=== PATIENT | female | born 1955 | race Caucasian/White ===

== ENCOUNTER → 2016-09-08 | Outpatient (CLI) | payer MEDICARE ==
[~2016-09-08] MED LIST: ACTI300C PO; ACYC400T PO; ADV100INH INH; AKWASOL OU; ALBU83IN INH; AMLO25TA PO; AVEL1TAB PO; BACITAB3 PO; BACT800T5 PO; BECLPOW PO; BIOTLIQ3 SSP; BISMUTH SUBGALLATE PO; BUDESONIDE PO; BUPR200T PO; CHOL4POW4 PO; CITRTAB18 PO; CLON0.5T PO; EXJA500T PO; FENT1DIS14 TD; FOLI1TAB2 PO; GENTEAL OU; HYDROCORTISONE 1% TOP; LACTASE PO; LIDO5DIS36 TD; LOPE2TAB PO; LOVE1INJ SC; METO25TAB PO; MICR10CA PO; MOXI1TAB PO; MUCINEX PO; MULTCAP PO; MYLI40DR PO; ONDA1TAB16 PO; OXYC-517 PO; PRED10TA PO; PRIL20CA OR; PROT0.1O TOP; PROT1TAB2 PO; PROTEIN PO; ROBISYP PO; SIME80TA PO; SYSTSOL OU; TACROLIMUS PO; THIA100T PO; TRID0.1C TOP; TYLE325T5 PO; VITA100072 PO; VORICONAZOLE PO; [UNRECOGNIZED DRUG - OTHER] PO; [UNRECOGNIZED DRUG - OTHER] PO
[2016-09-08 13:19] LABS: BASO % 0.5 % (0.0-1.0); EOS # 0.8 K/mm3 (0.0-0.50); EOS % 7.4 % (0.0-3.0); LARGE UNSTAINED CELL # 0.4 K/mm3 (0.0-0.4); LARGE UNSTAINED CELL % 3.8 % (0.0-4.0); LYMPH # 3.7 K/mm3 (1.5-4.5); LYMPH % 35.2 % (24.0-44.0); MEAN CORPUSCULAR HEMOGLOBIN 32.5 pg (27.0-33.0); MEAN CORPUSCULAR HGB CONC 31.2 g/dl (32.0-36.5); MEAN CORPUSCULAR VOLUME 104.1 fl (80.0-96.0); MONO # 1.4 K/mm3 (0.0-0.8); MONO % 13.7 % (0.0-5.0); NEUTROPHILS # 4.1 K/mm3 (1.8-7.7); NEUTROPHILS % 39.4 % (36.0-66.0); PLATELET COUNT, AUTOMATED 287 k/mm3 (150-450); RED CELL DISTRIBUTION WIDTH 14.6 % (11.5-14.5); WHITE BLOOD COUNT 10.4 K/mm3 (4.0-10.0)
== END ==
LOC: M WUC 11:17
PROVIDERS: ATTEND Physician Assistant
DX: C92.01 Acute myeloblastic leukemia, in remission (principal); D89.813 Graft-versus-host disease, unspecified

== ENCOUNTER → 2016-10-14 | Outpatient (CLI) | payer MEDICARE ==
--- NOTE | 2016-10-14 10:43 | REP ---
Clinical: Pain and swelling. History of deep venous thrombosis. Technique: Garcia scale and color Doppler evaluation using linear high frequency transducer. Comparison: 06/07/2014 Findings: Ultrasound examination of the left lower extremity deep venous structures from the common femoral vein to the popliteal vein demonstrates moderate acute nonocclusive thrombus. Residual flow and normal venous wave patterns are appreciated. Impression: Acute nonocclusive thrombus extending from the common femoral vein to the popliteal vein/trifurcation. Signed by Sharad Montano MD 10/14/2016 10:35 A
== END ==
LOC: M RAD 09:58
PROVIDERS: ATTEND Physician Assistant
DX: I82.412 Acute embolism and thrombosis of left femoral vein (principal); Z94.84 Stem cells transplant status

== ENCOUNTER 2017-05-24 13:18 | Emergency (ER) | payer MEDICARE ==
[2017-05-24 15:05] LABS: ANION GAP 7 MEQ/L (8-16); BLOOD UREA NITROGEN 15 MG/DL (7-18); CALCIUM LEVEL 8.5 MG/DL (8.8-10.2); CARBON DIOXIDE LEVEL 29 MEQ/L (21-32); CHLORIDE LEVEL 105 MEQ/L (98-107); CPK CREATINE PHOSPHOKINASE 25 U/L (26-192); GLOMERULAR FILTRATION RATE > 60.0 (>45); GLUCOSE, FASTING 83 MG/DL (80-110); POTASSIUM SERUM 4.4 MEQ/L (3.5-5.1); SODIUM LEVEL 141 MEQ/L (136-145); TROPONIN I < 0.02 NG/ML (< 0.10)
[2017-05-24 15:05] LABS: LACTIC ACID SEPSIS PROTOCOL 1.1 MMOL/L (0.4-2.0)
[2017-05-24 15:10] LABS: BASO # 0.1 10^3/uL (0.0-0.2); BASO % 0.9 % (0.0-1.0); EOS # 0.2 10^3/uL (0.0-0.50); EOS % 2.3 % (0.0-3.0); HEMATOCRIT 38.4 % (36.0-47.0); HEMOGLOBIN 12.1 g/dl (12.0-16.0); IMMATURE GRANULOCYTE # 0.3 10^3/uL (0-0); IMMATURE GRANULOCYTE % 2.5 % (0-0); LYMPH # 1.8 10^3/uL (1.5-4.5); LYMPH % 17.6 % (24.0-44.0); MEAN CORPUSCULAR HEMOGLOBIN 31.9 pg (27.0-33.0); MEAN CORPUSCULAR HGB CONC 31.5 g/dl (32.0-36.5); MEAN CORPUSCULAR VOLUME 101.3 fl (80.0-96.0); MONO # 1.6 10^3/uL (0.0-0.8); MONO % 15.7 % (0.0-5.0); NEUTROPHILS # 6.1 10^3/uL (1.8-7.7); PLATELET COUNT, AUTOMATED 271 10^3/uL (150-450); RED BLOOD COUNT 3.79 10^6/uL (4.00-5.40); RED CELL DISTRIBUTION WIDTH 15.7 % (11.5-14.5)
[2017-05-24 15:38] LABS: ERYTHROCYTE SEDIMENTATION RATE 52 mm/hr (0-30)
[2017-05-24 17:21] LABS: KETONE, URINE AUTO RFX NEGATIVE (NEGATIVE); LEUKOCYTE ESTERASE UR AUTO RFX NEGATIVE (NEGATIVE); NITRITE, URINE AUTO RFX NEGATIVE (NEGATIVE); RBC, URINE AUTO RFX 0 /HPF (0-3); SPECIFIC GRAVITY UR AUTO RFX 1.016 (1.002-1.035); SQUAM EPITHELIAL CELL UR AURFX 0 /HPF (0-6); WBC, URINE AUTO RFX 1 /HPF (0-3)
[2017-05-24] MEDS: DOXYCYCLINE HYCLATE 100 MG TAB PO (18:30)
[2017-05-24] MEDS: CEPHALEXIN 500 MG CAP PO (18:31)
== END 2017-05-24 19:00 | disposition home or self-care (01) ==
LOC: M ED 13:18
DX: L89.212 Pressure ulcer of right hip, stage 2 (principal); L89.222 Pressure ulcer of left hip, stage 2; L97.902 Non-pressure chronic ulcer of unspecified part of unspecified lower leg with fat layer exposed; D89.813 Graft-versus-host disease, unspecified; I10 Essential (primary) hypertension; F32.9 Major depressive disorder, single episode, unspecified; Z85.6 Personal history of leukemia; Z98.84 Bariatric surgery status; Z79.899 Other long term (current) drug therapy
CPT/HCPCS: 71046

== ENCOUNTER → 2017-08-17 | Outpatient (REF) | payer MEDICARE | LOC: M LAB REF 16:34 | DX: L92.8 Other granulomatous disorders of the skin and subcutaneous tissue (principal); I87.311 Chronic venous hypertension (idiopathic) with ulcer of right lower extremity; L89.213 Pressure ulcer of right hip, stage 3; L89.313 Pressure ulcer of right buttock, stage 3; L89.223 Pressure ulcer of left hip, stage 3 | CPT/HCPCS: 88305 ==

== ENCOUNTER 2017-12-21 10:21 | Emergency (ER) | payer MEDICARE | END 2017-12-21 12:17 | disposition home or self-care (01) | LOC: M ED 10:21 | DX: R41.82 Altered mental status, unspecified (principal); T50.7X5A Adverse effect of analeptics and opioid receptor antagonists, initial encounter; I10 Essential (primary) hypertension; D69.6 Thrombocytopenia, unspecified; C92.00 Acute myeloblastic leukemia, not having achieved remission; D89.813 Graft-versus-host disease, unspecified; Z98.84 Bariatric surgery status; Z79.899 Other long term (current) drug therapy; Z79.51 Long term (current) use of inhaled steroids | CPT/HCPCS: 99284 ==

== ENCOUNTER 2018-01-04 15:54 | Inpatient (IN) | payer MEDICARE ==
[2018-01-04] MEDS: NS 1,000 ML IV ×2 (16:30→23:01)
[2018-01-04 16:31] LABS: BASO # 0.1 10^3/uL (0.0-0.2); BASO % 0.5 % (0.0-1.0); EOS # 0.2 10^3/uL (0.0-0.50); EOS % 1.4 % (0.0-3.0); HEMATOCRIT 30.2 % (36.0-47.0); HEMOGLOBIN 9.2 g/dl (12.0-15.5); IMMATURE GRANULOCYTE % 2.8 % (0-3.0); LYMPH # 1.2 10^3/uL (1.5-4.5); LYMPH % 10.3 % (24.0-44.0); MEAN CORPUSCULAR HEMOGLOBIN 27.6 pg (27.0-33.0); MEAN CORPUSCULAR HGB CONC 30.5 g/dl (32.0-36.5); MEAN CORPUSCULAR VOLUME 90.7 fl (80.0-96.0); MONO # 1.8 10^3/uL (0.0-0.8); MONO % 15.4 % (0.0-5.0); NEUTROPHILS # 8.2 10^3/uL (1.8-7.7); NEUTROPHILS % 69.6 % (36.0-66.0); PLATELET COUNT, AUTOMATED 355 10^3/uL (150-450); RED BLOOD COUNT 3.33 10^6/uL (4.00-5.40); WHITE BLOOD COUNT 11.8 10^3/uL (4.0-10.0)
[2018-01-04 16:41] LABS: ABG BASE EXCESS 0.4 (-2.0-2.0); ABG HCO3 23.9 MEQ/L (22.0-26.0); ABG O2 SATURATION 89.1 % (95.0-99.0); ABG PARTIAL PRESSURE CO2 34.3 mmHg (35.0-45.0); ABG PARTIAL PRESSURE O2 53.6 mmHg (75.0-100.0); ABG STANDARD HCO3 24.7 MEQ/L (22.0-26.0); ABG pH (ARTERIAL) 7.461 UNITS (7.350-7.450)
[2018-01-04 16:42] LABS: OSMOLALITY SERUM 283 MOSM/KG (280-301)
[2018-01-04 16:45] LABS: AMMONIA 16 uMOL/L (<32)
[2018-01-04] MEDS ORDERED: MORPHINE 2 MG/ML 1ML SYRINGE (J2270) As Ordered (16:49)
[2018-01-04 16:50] LABS: ACETAMINOPHEN LEVEL 4.8 UG/ML (10.0-30.0); ALBUMIN 1.9 GM/DL (3.2-5.2); ALBUMIN/GLOBULIN RATIO 0.76 (1.00-1.93); ALKALINE PHOSPHATASE 181 U/L (45-117); ALT/SGPT 11 U/L (12-78); ANION GAP 7 MEQ/L (8-16); AST/SGOT 21 U/L (7-37); BILIRUBIN,DIRECT 0.2 MG/DL (0.0-0.2); BILIRUBIN,TOTAL 0.3 MG/DL (0.2-1.0); BLOOD UREA NITROGEN 10 MG/DL (7-18); CALCIUM LEVEL 7.6 MG/DL (8.8-10.2); CARBON DIOXIDE LEVEL 27 MEQ/L (21-32); CHLORIDE LEVEL 105 MEQ/L (98-107); CPK CREATINE PHOSPHOKINASE 31 U/L (26-192); CREATININE FOR GFR 0.54 MG/DL (0.55-1.30); GLOMERULAR FILTRATION RATE > 60.0 (>45); GLUCOSE, FASTING 126 MG/DL (70-100); POTASSIUM SERUM 4.2 MEQ/L (3.5-5.1); SALICYLATE LEVEL 2.5 MG/DL (5.0-30.0); SODIUM LEVEL 139 MEQ/L (136-145); TOTAL PROTEIN 4.4 GM/DL (6.4-8.2); TROPONIN I 0.02 NG/ML (< 0.10)
[2018-01-04 16:51] LABS: LACTIC ACID SEPSIS PROTOCOL 1.3 MMOL/L (0.4-2.0)
[2018-01-04 16:56] LABS: CK-MB VALUE MASS < 1.0 NG/ML (<3.6); MB/CK RELATIVE INDEX 3.22 (< OR =4)
[2018-01-04 16:57] LABS: ETHYL ALCOHOL (ETHANOL) < 0.003 % (0.000-0.010)
[2018-01-04] MEDS: MORPHINE 2 MG/ML 1ML SYRINGE (J2270) IV (17:00)
[2018-01-04 18:35] LABS: KETONE, URINE AUTO RFX NEGATIVE (NEGATIVE); LEUKOCYTE ESTERASE UR AUTO RFX NEGATIVE (NEGATIVE); MUCUS, URINE RFX SMALL (NEGATIVE); NITRITE, URINE AUTO RFX NEGATIVE (NEGATIVE); RBC, URINE AUTO RFX 3 /HPF (0-3); SPECIFIC GRAVITY UR AUTO RFX 1.004 (1.002-1.035); SQUAM EPITHELIAL CELL UR AURFX 0 /HPF (0-6); WBC, URINE AUTO RFX 1 /HPF (0-3)
[2018-01-04 18:45] LABS: AMPHETAMINES LEVEL URINE NEGATIVE (NEGATIVE); BARBITURATES URINE NEGATIVE (NEGATIVE); BENZODIAZEPINES URINE NEGATIVE (NEGATIVE); CANNABINOIDS URINE NEGATIVE (NEGATIVE); COCAINE METABOLITE URINE NEGATIVE (NEGATIVE); METHADONE URINE NEGATIVE (NEGATIVE); OPIATES URINE POSITIVE (NEGATIVE); PHENCYCLIDINE URINE NEGATIVE (NEGATIVE)
[2018-01-04] MEDS ORDERED: guaiFENesin SYRUP 200 MG/10 ML UDC PO (19:30)
[2018-01-04] MEDS ORDERED: POLYVINYL ALCOHOL OPHTH SOLN 15 ML(LIQUITEARS) OU (19:30)
[2018-01-04] MEDS ORDERED: LOPERAMIDE 2 MG CAP PO (19:30)
[2018-01-04] MEDS ORDERED: TRIAMCINOLONE ACET 0.1% CREAM 80 GM TOP (19:30)
[2018-01-04] MEDS ORDERED: ACETAMINOPHEN TAB 650MG DOSE (2X325MG) PO (19:30)
[2018-01-04] MEDS ORDERED: ONDANSETRON 4 MG TAB (S0181) PO (19:30)
[2018-01-04] MEDS ORDERED: BISACODYL 10 MG SUPP PR (19:45)
[2018-01-04] MEDS ORDERED: PROHANCE 279.3MG/ML 15ML VIAL (A9576) As Ordered (20:49)
[2018-01-04] MEDS ORDERED: VORICONAZOLE 200MG TABLET (VFEND) PO (21:00)
[2018-01-04] MEDS ORDERED: URSODIOL 300 MG CAP PO (21:00)
[2018-01-04] MEDS ORDERED: CIPROFLOXACIN 500 MG TAB PO (21:00)
[2018-01-04] MEDS: METOPROLOL SUCC *XL* 25MG TAB (TopROL *XL*) PO (22:57)
[2018-01-04] MEDS: levETIRAcetam 250MG TABLET (KEPPRA) PO (22:58)
[2018-01-04] MEDS: LACTOBACILLUS ACIDOPHILUS CAP (BACID) PO (22:58)
[2018-01-04] MEDS: GABAPENTIN 100 MG CAP PO (22:59)
[2018-01-04] MEDS: PANTOPRAZOLE 40MG TAB (PROTONIX) PO (22:59)
[2018-01-04] MEDS ORDERED: FENTANYL REMOVAL DOCUMENTATION MISC XX (23:00)
[2018-01-04] MEDS: fentaNYL 50 MCG/HR PATCH TD (23:00)
[2018-01-05] MEDS: ADVAIR HFA 45/21MCG INHALER INH ×3 (03:13→20:38)
[2018-01-05 05:17] LABS: HEMOGLOBIN 9.5 g/dl (12.0-15.5); MEAN CORPUSCULAR HEMOGLOBIN 27.3 pg (27.0-33.0); MEAN CORPUSCULAR HGB CONC 29.7 g/dl (32.0-36.5); PLATELET COUNT, AUTOMATED 331 10^3/uL (150-450); RED BLOOD COUNT 3.48 10^6/uL (4.00-5.40); WHITE BLOOD COUNT 10.5 10^3/uL (4.0-10.0)
[2018-01-05 05:31] LABS: ESTIMATED AVERAGE GLUCOSE 80 MG/DL (60-110); HEMOGLOBIN A1c 4.4 %
[2018-01-05 05:42] LABS: ALBUMIN 1.7 GM/DL (3.2-5.2); ALBUMIN/GLOBULIN RATIO 0.57 (1.00-1.93); ALKALINE PHOSPHATASE 152 U/L (45-117); ALT/SGPT 10 U/L (12-78); ANION GAP 7 MEQ/L (8-16); AST/SGOT 16 U/L (7-37); BILIRUBIN,TOTAL 0.3 MG/DL (0.2-1.0); BLOOD UREA NITROGEN 9 MG/DL (7-18); CALCIUM LEVEL 7.7 MG/DL (8.8-10.2); CARBON DIOXIDE LEVEL 26 MEQ/L (21-32); CHLORIDE LEVEL 109 MEQ/L (98-107); CREATININE FOR GFR 0.43 MG/DL (0.55-1.30); GLOMERULAR FILTRATION RATE > 60.0 (>45); GLUCOSE, FASTING 60 MG/DL (70-100); POTASSIUM SERUM 3.8 MEQ/L (3.5-5.1); SODIUM LEVEL 142 MEQ/L (136-145); TOTAL PROTEIN 4.7 GM/DL (6.4-8.2)
[2018-01-05] MEDS: D5W/0.9% SODIUM CHLORIDE 1,000 ML IV (06:45)
[2018-01-05 06:49] LABS: BEDSIDE GLUCOSE 56 MG/DL (80-115)
[2018-01-05 06:52] LABS: BEDSIDE GLUCOSE 103 MG/DL (80-115)
[2018-01-05] MEDS ORDERED: PROHANCE 279.3MG/ML 5ML VIAL (A9576) As Ordered (08:47)
[2018-01-05] MEDS ORDERED: PROHANCE 279.3MG/ML 15ML VIAL (A9576) As Ordered (08:48)
[2018-01-05] MEDS ORDERED: predniSONE 1 MG TAB PO (09:00)
[2018-01-05] MEDS: CHOLESTYRAMINE 4 GM PWD PKT PO ×3 (09:00→20:14)
[2018-01-05] MEDS ORDERED: VITAMIN D 1,000 INTERNATIONAL UNITS TABLET PO (09:00)
[2018-01-05] MEDS: TACROLIMUS 0.5 MG CAP PO ×2 (10:10→20:13)
[2018-01-05] MEDS: PERCOCET 5MG/325MG TAB PO (10:10)
[2018-01-05] MEDS: PANTOPRAZOLE 40MG TAB (PROTONIX) PO ×2 (10:10→20:13)
[2018-01-05] MEDS: buPROPion (WELLBUTRIN SR) 100 MG SR TAB PO ×2 (10:11→20:13)
[2018-01-05] MEDS: LACTOBACILLUS ACIDOPHILUS CAP (BACID) PO ×3 (10:11→20:11)
[2018-01-05] MEDS: GABAPENTIN 100 MG CAP PO ×3 (10:11→20:13)
[2018-01-05] MEDS: FOLIC ACID 1 MG TAB PO (10:11)
[2018-01-05] MEDS: CYANOCOBALAMIN 500 MCG TAB PO (10:11)
[2018-01-05] MEDS: levETIRAcetam 250MG TABLET (KEPPRA) PO ×2 (10:11→20:12)
[2018-01-05] MEDS: VITAMIN D 1,000 INTERNATIONAL UNITS TABLET PO (10:12)
[2018-01-05] MEDS: THIAMINE 100 MG TAB PO (10:15)
[2018-01-05] MEDS: METOPROLOL SUCC *XL* 25MG TAB (TopROL *XL*) PO (10:15)
[2018-01-05] MEDS: ENOXAPARIN 40 MG/0.4 ML SYRINGE (J1650) SC (10:16)
[2018-01-05] MEDS: fentaNYL 50 MCG/HR PATCH TD (11:10)
[2018-01-05 13:44] LABS: CK-MB VALUE MASS < 1.0 NG/ML (<3.6); CPK CREATINE PHOSPHOKINASE 30 U/L (26-192); MB/CK RELATIVE INDEX 3.33 (< OR =4); TROPONIN I 0.02 NG/ML (< 0.10)
[2018-01-05] MEDS ORDERED: DIAPER RELIEF PASTE (DESITIN) 60GM TOP (14:45)
[2018-01-05] MEDS ORDERED: VANCOMYCIN HCL 1,000 MG, VIAL MATE ADAPTER 1 EACH in D5W 250 ML IV (16:30)
[2018-01-05] MEDS: VANCOMYCIN HCL 1,000 MG, VIAL MATE ADAPTER 1 EACH in D5W 250 ML IV ×2 (16:45→23:22)
[2018-01-05] MEDS ORDERED: LIDOCAINE 1% MDV 20ML VIAL As Ordered (18:33)
[2018-01-05] MEDS: CEFEPIME HCL 1 GM in D5W MINI-BAG PLUS 50 ML IV (19:14)
[2018-01-05] MEDS: LIDOCAINE 1% MDV 20ML VIAL SC (19:14)
[2018-01-05 20:44] LABS: CSF RBC < 2 10^3/uL (<2)
[2018-01-05 20:45] LABS: APPEARANCE, CSF CLEAR (CLEAR); COLOR, CSF COLORLESS (COLORLESS); CSF DIFF IF INDICATED? NO (NO); CSF TUBE# CELL CNT TUBE 4; CSF WBC 4 /uL (0-10)
[2018-01-05 20:47] LABS: CSF MONONUCLEAR CELL % 42.9 % (0-0); CSF POLYMORPHONUCLEAR CELL % 57.1 % (0-0); CSF RBC 4 10^3/uL (<2); CSF WBC 28 /uL (0-10)
[2018-01-05 20:50] LABS: APPEARANCE, CSF HAZY (CLEAR); COLOR, CSF PINK (COLORLESS); CSF DIFF IF INDICATED? YES (NO); CSF TUBE# CELL CNT TUBE 1
[2018-01-05] MEDS ORDERED: clonazePAM 1 MG TAB PO (21:00)
[2018-01-05 21:04] LABS: CSF TUBE# GLU TUBE 2; CSF TUBE# TP TUBE 2; GLUCOSE CSF 49 MG/DL (40-75); TOTAL PROTEIN,CSF 35.1 MG/DL (15-45)
[2018-01-06] MEDS: PERCOCET 5MG/325MG TAB PO ×2 (03:29→11:37)
[2018-01-06 05:33] LABS: HEMATOCRIT 28.4 % (36.0-47.0); HEMOGLOBIN 8.6 g/dl (12.0-15.5); MEAN CORPUSCULAR HEMOGLOBIN 27.6 pg (27.0-33.0); MEAN CORPUSCULAR HGB CONC 30.3 g/dl (32.0-36.5); PLATELET COUNT, AUTOMATED 309 10^3/uL (150-450); RED BLOOD COUNT 3.12 10^6/uL (4.00-5.40); RED CELL DISTRIBUTION WIDTH 18.1 % (11.5-14.5)
[2018-01-06 05:52] LABS: ALBUMIN 1.6 GM/DL (3.2-5.2); ALBUMIN/GLOBULIN RATIO 0.57 (1.00-1.93); ALKALINE PHOSPHATASE 129 U/L (45-117); ALT/SGPT 9 U/L (12-78); ANION GAP 9 MEQ/L (8-16); AST/SGOT 9 U/L (7-37); BILIRUBIN,TOTAL 0.3 MG/DL (0.2-1.0); BLOOD UREA NITROGEN 9 MG/DL (7-18); CALCIUM LEVEL 7.7 MG/DL (8.8-10.2); CARBON DIOXIDE LEVEL 24 MEQ/L (21-32); CHLORIDE LEVEL 109 MEQ/L (98-107); GLOMERULAR FILTRATION RATE > 60.0 (>45); GLUCOSE, FASTING 68 MG/DL (70-100); MAGNESIUM LEVEL 1.4 MG/DL (1.8-2.4); POTASSIUM SERUM 3.6 MEQ/L (3.5-5.1); SODIUM LEVEL 142 MEQ/L (136-145); TOTAL PROTEIN 4.4 GM/DL (6.4-8.2)
[2018-01-06] MEDS: CEFEPIME HCL 1 GM in D5W MINI-BAG PLUS 50 ML IV ×2 (06:00→17:33)
[2018-01-06] MEDS: oxyCODONE 5MG TAB PO ×3 (08:54→20:55)
[2018-01-06] MEDS: ADVAIR HFA 45/21MCG INHALER INH ×2 (08:59→21:27)
[2018-01-06] MEDS: CHOLESTYRAMINE 4 GM PWD PKT PO ×2 (09:00→20:55)
[2018-01-06] MEDS: GABAPENTIN 100 MG CAP PO ×3 (09:51→20:54)
[2018-01-06] MEDS: PANTOPRAZOLE 40MG TAB (PROTONIX) PO ×2 (09:52→20:53)
[2018-01-06] MEDS: FOLIC ACID 1 MG TAB PO (09:52)
[2018-01-06] MEDS: levETIRAcetam 250MG TABLET (KEPPRA) PO ×2 (09:52→20:54)
[2018-01-06] MEDS: CYANOCOBALAMIN 500 MCG TAB PO (09:52)
[2018-01-06] MEDS: buPROPion (WELLBUTRIN SR) 100 MG SR TAB PO ×2 (09:52→20:54)
[2018-01-06] MEDS: VITAMIN D 1,000 INTERNATIONAL UNITS TABLET PO (09:52)
[2018-01-06] MEDS: TACROLIMUS 0.5 MG CAP PO ×2 (09:53→20:53)
[2018-01-06] MEDS: methylPREDNISolone 4 MG TAB PO (09:53)
[2018-01-06] MEDS: METOPROLOL SUCC *XL* 25MG TAB (TopROL *XL*) PO (09:53)
[2018-01-06] MEDS: THIAMINE 100 MG TAB PO (09:53)
[2018-01-06] MEDS: MAG SULF 1GM/100ML (MAG RUN) 1 GM in APPROPRIATE DILUENT 1 EA IV (09:54)
[2018-01-06] MEDS: HEPARIN SOD (PORCINE) 5000 UNITS/ML VIAL SQ ×2 (09:54→20:53)
[2018-01-06] MEDS: LACTOBACILLUS ACIDOPHILUS CAP (BACID) PO ×3 (09:54→20:54)
[2018-01-06] MEDS: VANCOMYCIN HCL 1,000 MG, VIAL MATE ADAPTER 1 EACH in D5W 250 ML IV ×2 (11:00→23:00)
[2018-01-06] MEDS: MORPHINE 4 MG/ML 1ML VIAL/SYRINGE (J2270) IV (13:26)
[2018-01-06] MEDS: SODIUM CHLORIDE 0.9% INJ 10 ML SYR IV (17:32)
[2018-01-07 05:04] LABS: HEMATOCRIT 30.3 % (36.0-47.0); MEAN CORPUSCULAR HEMOGLOBIN 27.2 pg (27.0-33.0); MEAN CORPUSCULAR HGB CONC 29.7 g/dl (32.0-36.5); MEAN CORPUSCULAR VOLUME 91.5 fl (80.0-96.0); PLATELET COUNT, AUTOMATED 311 10^3/uL (150-450); RED BLOOD COUNT 3.31 10^6/uL (4.00-5.40); RED CELL DISTRIBUTION WIDTH 18.2 % (11.5-14.5); WHITE BLOOD COUNT 6.9 10^3/uL (4.0-10.0)
[2018-01-07 05:35] LABS: ALBUMIN 1.6 GM/DL (3.2-5.2); ALBUMIN/GLOBULIN RATIO 0.53 (1.00-1.93); ALKALINE PHOSPHATASE 117 U/L (45-117); ALT/SGPT 9 U/L (12-78); ANION GAP 7 MEQ/L (8-16); AST/SGOT 9 U/L (7-37); BILIRUBIN,TOTAL 0.2 MG/DL (0.2-1.0); BLOOD UREA NITROGEN 9 MG/DL (7-18); CARBON DIOXIDE LEVEL 24 MEQ/L (21-32); CHLORIDE LEVEL 112 MEQ/L (98-107); GLOMERULAR FILTRATION RATE > 60.0 (>45); GLUCOSE, FASTING 75 MG/DL (70-100); MAGNESIUM LEVEL 1.9 MG/DL (1.8-2.4); SODIUM LEVEL 143 MEQ/L (136-145); TOTAL PROTEIN 4.6 GM/DL (6.4-8.2)
[2018-01-07] MEDS: TACROLIMUS 0.5 MG CAP PO ×2 (08:26→20:28)
[2018-01-07] MEDS: buPROPion (WELLBUTRIN SR) 100 MG SR TAB PO ×2 (08:27→20:28)
[2018-01-07] MEDS: LACTOBACILLUS ACIDOPHILUS CAP (BACID) PO ×3 (08:27→20:28)
[2018-01-07] MEDS: CYANOCOBALAMIN 500 MCG TAB PO (08:27)
[2018-01-07] MEDS: VITAMIN D 1,000 INTERNATIONAL UNITS TABLET PO (08:27)
[2018-01-07] MEDS: PANTOPRAZOLE 40MG TAB (PROTONIX) PO ×2 (08:28→20:29)
[2018-01-07] MEDS: levETIRAcetam 250MG TABLET (KEPPRA) PO ×2 (08:28→20:28)
[2018-01-07] MEDS: GABAPENTIN 100 MG CAP PO ×3 (08:29→20:29)
[2018-01-07] MEDS: THIAMINE 100 MG TAB PO (08:30)
[2018-01-07] MEDS: FOLIC ACID 1 MG TAB PO (08:30)
[2018-01-07] MEDS: oxyCODONE 5MG TAB PO ×4 (08:30→20:39)
[2018-01-07] MEDS: METOPROLOL SUCC *XL* 25MG TAB (TopROL *XL*) PO (08:34)
[2018-01-07] MEDS: CHOLESTYRAMINE 4 GM PWD PKT PO ×2 (08:34→20:28)
[2018-01-07 10:19] LABS: VANCOMYCIN LEVEL TROUGH 14.3 UG/ML (10.0-20.0)
[2018-01-07] MEDS: ADVAIR HFA 45/21MCG INHALER INH ×2 (10:22→20:02)
[2018-01-07] MEDS: VANCOMYCIN HCL 1,000 MG, VIAL MATE ADAPTER 1 EACH in D5W 250 ML IV (11:20)
[2018-01-07] MEDS: HEPARIN SOD (PORCINE) 5000 UNITS/ML VIAL SQ ×2 (11:20→20:28)
== END 2018-01-07 21:00 | disposition short-term general hospital (02) | DRG 100 ==
LOC: M ED 15:54 → M ED INP 19:31 → M ICU 21:59
DX: R56.9 Unspecified convulsions (principal); G04.90 Encephalitis and encephalomyelitis, unspecified; D89.811 Chronic graft-versus-host disease; C92.01 Acute myeloblastic leukemia, in remission; R78.81 Bacteremia; L97.918 Non-pressure chronic ulcer of unspecified part of right lower leg with other specified severity; L97.928 Non-pressure chronic ulcer of unspecified part of left lower leg with other specified severity; K21.9 Gastro-esophageal reflux disease without esophagitis; F41.9 Anxiety disorder, unspecified; E66.9 Obesity, unspecified; Z79.899 Other long term (current) drug therapy; I87.2 Venous insufficiency (chronic) (peripheral); L98.419 Non-pressure chronic ulcer of buttock with unspecified severity; Z86.718 Personal history of other venous thrombosis and embolism; Z98.84 Bariatric surgery status; F11.90 Opioid use, unspecified, uncomplicated

== ENCOUNTER 2018-03-22 13:21 | Inpatient (IN) | payer MEDICARE ==
[~2018-03-22] VITALS: Ht 157.5 cm; Wt 74.7 kg
[~2018-03-22 13:21] MED LIST changes: +ACID100C PO; -AVEL1TAB PO; +AVEL1TAB3 PO; +BACITAB PO; -BACITAB3 PO; +CIPR1TAB20 PO; -CLON0.5T PO; +CLON0.5T8 PO; +CLON1TAB8 PO; +D3-5CAP PO; +DOXY100C37 PO; +DURA50DI2 TD; +ENOX40IN3 SC; +FISH1000 PO; +FLAX10002 PO; -FOLI1TAB2 PO; +FOLI1TAB5 PO; +GABA-1171 PO; +GABA-843 PO; +GENTGEL OU; +KEFL500C17 PO; +KEPP250T5 PO; +LACT3000 PO; -LIDO5DIS36 TD; +LIDO5DIS41 TD; +LOPE2CA PO; +LOPE2CAP PO; -LOPE2TAB PO; +LOVE0.8I SC; +METH4TAB28 PO; +METO1TAB32 PO; +MG-PTAB PO; -ONDA1TAB16 PO; +ONDA8TAB7 PO; +PENI500T PO; +PRED1TABL PO; +REST0.05 OU; +TACR0.5C3 PO; +TACR1CAP3 PO; -THIA100T PO; +THIA100T7 PO; +VITA100066 PO; +VITA2000 PO; +VORI200T5 PO; +WELL100T2 PO; +ZOFR8TAB24 SL; +[UNRECOGNIZED DRUG - CODE] INJ; +[UNRECOGNIZED DRUG - CODE] PO
[2018-03-22] MEDS ORDERED: SODIUM CHLORIDE 0.9% INJ 10 ML SYR IV PRN (13:45)
[2018-03-22] MEDS ORDERED: NS 1,000 ML IV ONE (13:45)
--- NOTE | 2018-03-22 14:17 | REP ---
Portable chest x-ray: Single view. History: Altered mental status. Comparison study: January 04, 2018. Findings: A Yeseuc-H-Afsd catheter is seen in place as before. The lungs are symmetrically aerated and clear. Pleural angles are sharp. Heart size is normal. Pulmonary vasculature is not increased. There is an old healed rib fracture on the left. Impression: No active disease. Electronically Signed by Mahendra Clark MD 03/22/2018 02:08 P
[2018-03-22 14:18] LABS: ABG BASE EXCESS 3.7 (-2.0-2.0); ABG HCO3 27.5 MEQ/L (22.0-26.0); ABG O2 SATURATION 95.9 % (95.0-99.0); ABG PARTIAL PRESSURE CO2 38.1 mmHg (35.0-45.0); ABG STANDARD HCO3 27.8 MEQ/L (22.0-26.0); ABG TOTAL CO2 28.7 MEQ/L (23.0-31.0); ABG pH (ARTERIAL) 7.476 UNITS (7.350-7.450)
--- NOTE | 2018-03-22 14:18 | REP ---
CT Head without contrast HISTORY: Altered mental status COMPARISON: 01/04/2018 Areas of decreased attenuation are present in the periventricular and subcortical white matter. This represents small-vessel ischemic disease. There is no intraparenchymal hemorrhage, acute infarct, mass or midline shift. The ventricular system is normal in appearance. There is no extra cerebral collection. There is no fracture. The visualized sinuses are clear. IMPRESSION: Small vessel ischemic disease. Electronically Signed by Asael Parks MD 03/22/2018 02:09 P
[2018-03-22 14:38] LABS: HEMATOCRIT 31.8 % (36.0-47.0); HEMOGLOBIN 9.6 g/dl (12.0-15.5); MEAN CORPUSCULAR HEMOGLOBIN 27.6 pg (27.0-33.0); MEAN CORPUSCULAR HGB CONC 30.2 g/dl (32.0-36.5); MEAN CORPUSCULAR VOLUME 91.4 fl (80.0-96.0); PLATELET COUNT, AUTOMATED 370 10^3/uL (150-450); RED BLOOD COUNT 3.48 10^6/uL (4.00-5.40); WHITE BLOOD COUNT 13.4 10^3/uL (4.0-10.0)
[2018-03-22 15:07] LABS: ATYPICAL LYMPH 3 % (0-5); BASOPHILS 1 % (0-4); EOSINOPHILS 2 % (0-5); LYMPHOCYTES 2 % (16-52); MONOCYTES 13 % (0-8); NEUTROPHILS 69 % (35-75); PLATELET ESTIMATE NORMAL (NORMAL)
[2018-03-22 15:08] LABS: TOXIC GRANULATION 1+
[2018-03-22 15:09] LABS: SCHISTOCYTES 1+
[2018-03-22 15:18] LABS: ALBUMIN 2.2 GM/DL (3.2-5.2); ALT/SGPT 10 U/L (12-78); BILIRUBIN,DIRECT 0.3 MG/DL (0.0-0.2); BILIRUBIN,TOTAL 0.5 MG/DL (0.2-1.0); BLOOD UREA NITROGEN 12 MG/DL (7-18); CALCIUM LEVEL 8.3 MG/DL (8.8-10.2); CARBON DIOXIDE LEVEL 28 MEQ/L (21-32); CHLORIDE LEVEL 103 MEQ/L (98-107); CK-MB VALUE MASS < 1.0 NG/ML (<3.6); CPK CREATINE PHOSPHOKINASE 18 U/L (26-192); CREATININE FOR GFR 0.53 MG/DL (0.55-1.30); GLOMERULAR FILTRATION RATE > 60.0 (>45); GLUCOSE, FASTING 94 MG/DL (70-100); MB/CK RELATIVE INDEX 5.56 (< OR =4); POTASSIUM SERUM 4.3 MEQ/L (3.5-5.1); SODIUM LEVEL 139 MEQ/L (136-145); TOTAL PROTEIN 4.8 GM/DL (6.4-8.2); TROPONIN I < 0.02 NG/ML (< 0.10)
[2018-03-22 15:58] LABS: AMPHETAMINES LEVEL URINE NEGATIVE (NEGATIVE); BARBITURATES URINE NEGATIVE (NEGATIVE); BENZODIAZEPINES URINE NEGATIVE (NEGATIVE); CANNABINOIDS URINE NEGATIVE (NEGATIVE); COCAINE METABOLITE URINE NEGATIVE (NEGATIVE); METHADONE URINE NEGATIVE (NEGATIVE); OPIATES URINE POSITIVE (NEGATIVE); PHENCYCLIDINE URINE NEGATIVE (NEGATIVE)
[2018-03-22] MEDS ORDERED: oxyCODONE 5MG TAB As Ordered ONE (17:40)
[2018-03-22] MEDS ORDERED: clonazePAM 1 MG TAB PO ONE (17:45)
[2018-03-22] MEDS ORDERED: oxyCODONE 5MG TAB PO ONE (17:45)
[2018-03-22] MEDS ORDERED: BUPR1TAB56 PO (19:30)
[2018-03-22] MEDS ORDERED: GUAI100S27 PO (19:30)
[2018-03-22] MEDS: LACTOBACILLUS ACIDOPHILUS CAP (BACID) PO SCH (21:00)
[2018-03-22] MEDS: GABAPENTIN 100 MG CAP PO SCH (21:00)
[2018-03-22] MEDS: buPROPion (WELLBUTRIN SR) 100 MG SR TAB PO SCH (21:00)
[2018-03-22] MEDS: TACROLIMUS 0.5 MG CAP PO SCH (21:00)
[2018-03-22] MEDS: CHOLESTYRAMINE 4 GM PWD PKT PO SCH (21:00)
[2018-03-22] MEDS ORDERED: LOPERAMIDE 2 MG CAP PO PRN (22:00)
[2018-03-22] MEDS ORDERED: guaiFENesin SYRUP 200 MG/10 ML UDC PO PRN (22:00)
[2018-03-22] MEDS ORDERED: SIMETHICONE 80 MG CHEW TAB PO PRN (22:00)
[2018-03-22] MEDS ORDERED: ACETAMINOPHEN 325 MG TAB PO PRN (22:00)
[2018-03-22] MEDS ORDERED: traZODone 50 MG TAB PO PRN (22:30)
[2018-03-22] MEDS ORDERED: MOM 30ML SUSPENSION UDC PO PRN (22:30)
[2018-03-22] MEDS ORDERED: MAALOX 30 ML SUSP *UDC PO PRN (22:30)
[2018-03-23] MEDS: buPROPion (WELLBUTRIN SR) 100 MG SR TAB PO SCH ×2 (09:00→14:32)
[2018-03-23] MEDS: VITAMIN D 1,000 INTERNATIONAL UNITS TABLET PO SCH ×3 (09:00→14:32)
[2018-03-23] MEDS: TACROLIMUS 0.5 MG CAP PO SCH ×2 (09:00→14:31)
[2018-03-23] MEDS: FOLIC ACID 1 MG TAB PO SCH ×2 (09:00→14:34)
[2018-03-23] MEDS ORDERED: fentaNYL 50 MCG/HR PATCH TD SCH (09:00)
[2018-03-23] MEDS: methylPREDNISolone 4 MG TAB PO SCH ×2 (09:00→14:33)
[2018-03-23] MEDS: GABAPENTIN 100 MG CAP PO SCH ×3 (09:00→20:31)
[2018-03-23] MEDS: CYANOCOBALAMIN 500 MCG TAB PO SCH ×2 (09:00→14:33)
[2018-03-23] MEDS: OMEGA-3 1000MG CAPSULE PO SCH ×2 (09:00→14:33)
[2018-03-23] MEDS: LACTOBACILLUS ACIDOPHILUS CAP (BACID) PO SCH ×3 (09:00→20:31)
[2018-03-23] MEDS: METOPROLOL SUCC *XL* 25MG TAB (TopROL *XL*) PO SCH (09:00)
[2018-03-23] MEDS: CHOLESTYRAMINE 4 GM PWD PKT PO SCH ×2 (09:00→20:32)
--- NOTE | 2018-03-23 13:42 | MHHPEPDOC ---
General Date Of Admission: Mar 23, 2018 Legal Status: 9.39 Chief Complaint Family brought her here. She doesn't know why History of Present Illness HISTORY OF THE PRESENT ILLNESS: Patient is a 63 -year-old , female, who was admitted to [facility] by Dr. Lr last night but she can't tell me this morning why she is at the ED, why she was brought in. She asked several times where was she at and we told her that she was at the Emergency Department but she kept forgetting. 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 L[facility] but she forgot about it and she asked the same question several times, to me and her sister who arrived to visit her. She doesn't know what date is today. She is shaking because she is in severe pain and she can't stand her bed cover (that is very light) but she gets cold and she asks for the cover again. She is bandaged on her right leg because she has leg sores. She doesn't answer questions, her memory is not good at this time. According to ED reports, patient has not been eating and family is concerned. she was not talkative yesterday when she was interviewed by social services designee. Psychiatric Review of Systems Depression (2 or more weeks): other (Patient didn't answer my questions) Danae (4 or more days of): other (patient is not able to answer questions) Psychosis: other (patient is not able to answer questions) PTSD: other (patient is not able to answer questions) Anxiety: other Past Psychiatric History Previous Psychiatric Diagnosis: Unknown, patient is not answering questions, but she was able to remember she worked with Dr. Lr and then she forgot again and asked about it over and over again Previous Psychiatric Admissions: Unknown, patient is not capable of answering any questions Suicide Attempts: Unknown, patient is not able to answer questions Psychiatric Follow-up: Unknown, patient is not answering questions Psychiatric medications: Unknown, patient is not answering questions Past Medical History Medical Problems Leukemia, but she was not able to contribute to her history, she is in severe pain Family Medical/Psychiatric HX Medical Problems Patient is a poor historian, she is not answering any questions because she is in severe pain Addiction History other (Unknown, patient is not answering questions, she is in pain.) Social History I was not able to elicit any answers from the patient, she only looks at me, askds about Dr. Lr, asks about where she is at (several times), she doesn't know why she is at the Hospital, she doesn't know who brought her in, she doesn't know where she follows up. Childhood: . Abuse/Trauma:. Current Living Situation: . Education: . Employment: . Social Support: . Legal: . Marital: . Mental Status Examination General Appearance: other (Patient is extremely thin, she is ematiated, she almost has no hair, her hair is very thin, she is dressed in hospital gown, one of her legs is bandaged because she has sores in it, she shakes because she is in pain) Build: thin (Extremely thin) Demeanor: withdrawn Eye Contact: avoidant Activity: other (Patient is laying in bed, she has psychomotor retardation, it is hard for her to move because she is in severe pain) Behavior: loss of interests, withdrawn Speech: impoverished (Patient is not talkative, she is a very poor historian) Mood: anxious, other (Patient knows she is very ill and becomes emotional when she says "I don't want to ") Affect: anxious Thought Process: other (Patient is not responding questions, she is very ill and her medical condition might be causing her thought process to be slow and confused.) Thought Content (Delusions): none reported (Patient is not able to answer any questions) Thought Content (Other): other (Patient has anxious thoughts about dying but for most of the interview she was not able to answer questions) Thought Content (Aggressive): none reported Perception (Hallucinations): none reported Perception (Other): none reported Cognition (Impairment of): none reported Cognition(Intelligence Est.): other (I was not able to assess her in this area, she is not talking) Oriented: Awake, Alert (She is awake and alert but she doesn't know what date and time is, she asks several times where she is at, she asks the same questions to me and to her sister Marce) Insight: poor Judgment: Poor Psychosis: Other (She doesn't seem to be responding to interna stimuli, she doesn't seem to be paranoid but she is afraid of daying) Diagnoses 1. 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 Bereavement Assessment Patient is very ill and she is afraid of dying, she is probably anxious about dying as any other person would be. She is extremely ill, her medical illness has to be addressed first, because she is anxious of dying. She is confused, she is not oriented to date, time and place. 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 She doesn't remember a lot of things, including why she was brought to the hospital, who brought her in, what medications she was taking. She is in severe pain, she shivers as a consequence of pain. Initial Treatment Plan 1. Patient was admitted on a [9.39] status. 2. Complete history was obtained. 3. With patients permission, family will be contacted and database will be expanded. 4. Patients medication regimen will be reviewed and changed accordingly. 5. Patient will be provided with protected environment. 6. Patient will be treated with individual, group, and milieu therapies. 7. Patient will receive supportive psych-education. 8. Discharge planning will commence immediately. 9. Outpatient follow-up treatment will be strongly recommended. 10. The initial treatment plan will focus initially on: * Depression. * Risk for suicide. * Substance abuse. ESTIMATED LENGTH OF STAY: - DAYS. TIME SPENT COUNSELING AND COORDINATING INITIAL CARE: minutes. Vital Signs Vital Signs Date Time Temp Pulse Resp B/P (MAP) Pulse Ox O2 Delivery O2 Flow Rate FiO2 03/23/18 12:23 20 03/23/18 06:10 97.8 100 131/60 (83) 94 Laboratory Data 24H Labs Laboratory Tests 2 03/22/18 14:04: Bedside Glucose (Misc Panel) 97 03/22/18 14:08: Urine Color BALTA, Urine Appearance CLOUDYH, Urine pH 5.0, Urine Specific [place] 1.017, Urine Protein 1+H, Urine Glucose (UA) NEGATIVE, Urine Ketones TRACEH, Urine Blood 1+H, Urine Nitrite NEGATIVE, Urine Bilirubin NEGATIVE, Urine Urobilinogen 4.0H, Urine Leukocyte Esterase TRACEH, Urine WBC (Auto) 0, Urine RBC (Auto) 1, Urine Hyaline Casts (Auto) 0, Urine Bacteria (Auto) 3+H, Urine Squamous Epithelial Cells 0, Urine Mucus (Auto) LARGE, Urine Sperm (Auto) , Urine Amphetamines Screen NEGATIVE, Urine Benzodiazepines Screen NEGATIVE, Urine Opiates Screen POSITIVEH, Urine Methadone Screen NEGATIVE, Urine Barbiturates Screen NEGATIVE, Urine Phencyclidine Screen NEGATIVE, Urine Cocaine Metabolite Screen NEGATIVE, Urine Cannabinoids Screen NEGATIVE 03/22/18 14:09: Blood Gas Bicarbonate Standard 27.8H, Arterial Blood pH 7.476H, Arterial Blood Partial Pressure CO2 38.1, Arterial Blood Partial Pressure O2 77.0, Arterial Blood Total CO2 28.7, Arterial Blood HCO3 27.5H, Arterial Blood Base Excess 3.7H, Arterial Blood Oxygen Saturation 95.9 03/22/18 14:24: Anion Gap 8, Glomerular Filtration Rate > 60.0, Calcium Level 8.3L, Aspartate Amino Transf (AST/SGOT) 10, Alanine Aminotransferase (ALT/SGPT) 10L, Alkaline Phosphatase 209H, Total Bilirubin 0.5, Direct Bilirubin 0.3H, Ammonia 14, Total Creatine Kinase 18L, Creatine Kinase MB < 1.0, Creatine Kinase MB Relative Index 5.56H, Troponin I < 0.02, Total Protein 4.8L, Albumin 2.2L, Albumin/Globulin Ratio 0.85L, Thyroid Stimulating Hormone (TSH) 3.410 03/22/18 14:26: White Blood Count 13.4H, Red Blood Count 3.48L, Hemoglobin 9.6L, Hematocrit 31.8L, Mean Corpuscular Volume 91.4, Mean Corpuscular Hemoglobin 27.6, Mean Corpuscular Hemoglobin Concent 30.2L, Red Cell Distribution Width 18.2H, Platelet Count 370, Monocytes # (Auto) , Nucleated Red Blood Cells % (auto) 0.2H, Neutrophils 69, Band Neutrophils 10, Lymphocytes (Manual) 2L, Monocytes (Manual) 13H, Eosinophils (Manual) 2, Basophils (Manual) 1, Atypical Lymphocytes 3, Toxic Granulation 1+, Platelet Estimate NORMAL, Schistocytes 1+, Lactic Acid Level 1.1 CBC/BMP Laboratory Tests 03/22/18 14:24 03/22/18 14:26 Red Blood Count 3.48 L, Mean Corpuscular Volume 91.4, Mean Corpuscular Hemoglobin 27.6, Mean Corpuscular Hemoglobin Concent 30.2 L, Red Cell Distribution Width 18.2 H, Monocytes # (Auto) Medications Scheduled (Citracal + D3 Maximum 315-250 mg-Unit) 1 Tab Tab, 1 TAB PO QID, (Reported) (Multivitamins) 1 Cap Cap, 1 CAP PO DAILY, (Reported) (Flax Seed Oil 1000 mg) 1 Cap Cap, 1 CAP PO DAILY, (Reported) (mg-Plus Protein 133 mg) 1 Tab Tab, 1 TAB PO DAILY, (Reported) (mg-Plus Protein 133 mg) 1 Tab Tab, 2 TAB PO TID, (Reported) LUNCH, DINNER, QHS (Acidophilus Probiotic) 100 Mg Cap, 100 MG PO TID, (Reported) (Restasis) 0.05 % Emu, 1 DROP OU BID, (Reported) Bupropion HCl (Bupropion HCl ER) 200 Mg Tab, 200 MG PO BID for depression Cholecalciferol (Vitamin D) 1,000 Unit Tab, 5,000 UNIT PO DAILY, (Reported) Cholecalciferol (Vitamin D3) 2,000 Unit Cap, 2,000 UNIT PO DAILY, (Reported) Cholecalciferol (D3-50) 50,000 Unit Cap, 50,000 UNIT PO QWEEK, (Reported) Cholestyramine (Cholestyramine) 4 Gm Pow, 4 GM PO BID, (Reported) Cyanocobalamin (Vitamin B12) 1,000 Mcg Tab, 1,000 MCG PO DAILY, (Reported) Fish Oil (Fish Oil) 1,000 Mg Cap, 1,000 MG PO DAILY, (Reported) Folic Acid (Folic Acid) 1 Mg Tab, 1 MG PO DAILY, (Reported) Gabapentin (Gabapentin) 100 Mg Cap, 100 MG PO TID for pain/anxiety Lactobacillus Acidophilus (Bacid) 1 Tab Tab, 2 TABS PO TID, (Reported) Methylprednisolone (Methylprednisolone) 4 Mg Tab, 4 MG PO DAILY, (Reported) Metoprolol Succinate (Metoprolol Succinate ER) 25 Mg Tab, 25 MG PO DAILY, (Reported) Pantoprazole Sodium Sesquihydr (Protonix) 40 Mg Tab, 40 MG PO BID, (Reported) Penicillin V Potassium (Penicillin V Potassium) 500 Mg Tab, 500 MG PO BID, (Reported) Salmeterol/Fluticasone (Advair Diskus 100-50 Mcg/Dose) 28 Puff/Inhaler Aerp, 1 PUFF INH BID, (Reported) Tacrolimus (Protopic) 0.1 % Oin, 1 DOSE TOP BID, (Reported) Tacrolimus (Tacrolimus) 0.5 Mg Cap, 0.5 MG PO BID, (Reported) Scheduled PRN (Systane Preservative Free 0.4-0.3 %) 1 Liz Liz, 1 DROP OU Q1H PRN for DRY EYES, (Reported) Acetaminophen (Tylenol) 325 Mg Tab, 650 MG PO Q4H PRN for PAIN, (Reported) Artificial Tears (Akwa Tears) 1.4 % Liz, 2 DROP OU QID PRN for DRY EYES, (Reported) Clonazepam (Clonazepam) 0.5 Mg Tab, 1 MG PO BID PRN for ANXIETY Fentanyl (Duragesic) 50 Mcg/Hr Dis, 50 MCG TD Q3D PRN for PAIN, (Reported) Guaifenesin (Guaifenesin) 100 Mg/5 Ml Syp, 20 ML PO QID PRN for COUGH, (Reported) Lactase (Lactaid) 3,000 Unit Tab, 3,000 UNIT PO TID PRN for INDIGESTION, (Reported) Loperamide HCl (Loperamide HCl) 2 Mg Cap, 4 MG PO QID PRN for AFTER EACH LOOSE STOOL, (Reported) Oxycodone HCl (Oxycodone HCl) 5 Mg Tab, 10 MG PO Q6H PRN for PAIN, (Reported) Simethicone (Simethicone) 80 Mg Chew, 80 MG PO QID PRN for GAS PAIN, (Reported) Trazodone HCl (Trazodone HCl) 50 Mg Tab, 50 MG PO QHSP PRN for INSOMNIA Allergies Coded Allergies: No Known Allergies (Verified , 03/22/18) ISAIAH CARSON MD Mar 23, 2018 13:23
--- NOTE | 2018-03-23 14:05 | CR.PDOC ---
General Date of Consultation: Mar 23, 2018 Consultation CONSULTATION REPORT FOR: Milagros REASON FOR CONSULTATION: Medical Consult and possible transfer to [facility] ATTENDING: Dr. Jeannette Hernandez PCP: Emelia Valenzuela [facility] Dr Miranda HPI: 63year oldF who has extensive PMH, including AML, S/P Stem cell transplant 2013, GVHD, who follows Q2 weekly for apheresis at [facility]. The pt was brought in by family related to depression, poor po intake, not taking her meds, generally not acting herself. The pt c/o generalized pain at this time, unable to localize what is causing her pain. Keeping eyes closed and is teary throughout exam, providing little history. Dtr is at bedside and assists with providing history. Has been generally weak. Unable to take care of herself at home. PHN assists at home with dressing gonzales es. Denies any fevers, chills, Headache, Chest Pain, Shortness of breath, cough, palpitations, abdominal pain, N/V/D or changes in bowel or bladder habits. PAST MEDICAL HISTORY: Acute myeloid leukemia (AML) status post stem cell transplantation in 2012, with chronic nldof-zidooc-wopn disease, with mostly skin manifestation, but also patient had liver manifestation in the past. Chronic ulcerations from multiple body sites including abdomen, scalp, B/L lower extremity. Follows up with Dr. Herrera. 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 PE: GEN: 63yoF. Thin, ill appearing. No acute distress lying on stretcher. Alert and responding to questions. Keeps eyes closed, teary. States it is Halloween. States she is in [place]. HEENT: Normocephalic, atraumatic. Sclera are nonicteric. Conjunctiva without injection. No facial asymmetry. Moist mucous membranes. Neck supple, trachea midline. No lymphadenopathy or thyromegaly appreciated. CHEST: Tachycardic +S1, +S2 LUNGS: Clear to auscultation bilaterally. No wheezes, rales, or rhonchi. Breathing appears symmetric and easy. Patient is speaking in full sentences. No accessory muscle use. ABD: Round, soft, non-tender, non-distended. +Bowel sounds throughout. No rebound or guarding. No costovertebral angle tenderness. SKIN: Diffuse skin lesions and ulceratons with bandages intact. Bandages B/L LEs NEURO: No focal deficits appreciated. CXR No active disease. Electronically Signed by Mahendra Clark MD 03/22/2018 02:08 P CTH Small vessel ischemic disease. Electronically Signed by Asael Parks MD 03/22/2018 02:09 P BC x 2 pending. pending. A&P: 63year oldF who has extensive PMH, including AML, S/P Stem cell transplant 2012, GVHD, who follows Q2 weekly for apheresis at [facility]. The pt was brought in by family related to depression, poor po intake, not taking her meds, generally not acting herself. 1. Leukocytosis. Possible wound infection. Pt is afebrile currently. HR 100, BP 131/60. BC x [address] Hernandez placed call to [facility] oncology regarding the pt's status and possible need for medical admission at their facility. The pt's oncologist has a greed to accept the pt in transfer at [facility]. Dr Soria at [facility] accepting pt in transfer. Arrangements are in process. Further management as per [facility]. 2. Chronic wounds. Continue dressing changes and wound care. 3. Acute on chronic pain. Continue current regimen. Continue fentanyl patch every 3 days. Continue oxycodone 10 mg every 6 hours as needed. Continue gabapentin 100 mg by mouth 3 times a day. Possibly consider pain management consultation. 4. Debility. Pt has been unable to care for self at home, not eating, not drinking. 5. H/O Acute myeloid leukemia (AML) status post stem cell transplantation in 2012, with chronic tzmxt-pnxtsw-pcvy disease, with mostly skin manifestation. Patient follows with Dr. Miranda, [facility] oncology. Patient receives apheresis treatments every 2 weeks, with next treatment to 03/31/18. Possible need for sooner treatment. Further management as per Oncology [facility]. Continue Tacrolimus. Patient remains on Medrol 4 mg by mouth daily 6. GERD. Continue Protonix. 7. Hypertension. Continue Toprol-XL 25 mg by mouth daily with hold parameters. 8. Chronic anemia. Appears to be near baseline. Continue vitamin B12 supplements. Continue folic acid supplements. 9. Depression. Management as per psychiatry. Attending note: We will call this afternoon by psychiatry service for medical consult and to possibly help transfer the patient to [facility] by the psychiatry service. The patient was in the emergency room and typically we see consult for the psychiatry service in the inpatient mental health unit the request with rather unusual for her service and as such we immediately reviewed the chart and present bedside. The patient was tearful and did not cooperate with answering questions her for much of the exam however when her daughters into the room she immediately sat up and had engaging conversations with them demonstrating clear orientation and a nonfocal neurologic exam and observation she did not appear to be encephalopathic however she did appear to be quite depressed. We agree with the psychiatry service that the patient does not appear to be a danger to self at this time she does deny suicidal ideation however she does appear to be significantly depressed and debilitated as well as some pain. The patient does have a leukocytosis and is tachycardic with his numerous wounds there is certainly concern for sepsis in the setting of her immunocompromised state on chronic prednisone tacrolimus a pheresis for slaak-lvdroe-togl disease. We will draw cultures and hold off on antibiotics for the moment pending potential transfer this evening During a previous hospitalization she did have sepsis and was transferred [facility] for pharesis. She follows with Dr. Miranda there, the patient and her daughter inform us that she is due for pheresis tomorrow and that she needs to be urgently transferred [facility] the patient's daughter informs me that she is orally spoken to her providers at [facility] in the oncology service and they're expecting a phone call from me her prepared to accept her hospital. I agree this patient warrants medical admission however it appears she requires urgent a pheresis I did make a phone call to [facility] oncology Dr. Mann did accept the patient in transfer. I did request psychiatry service to complete discharge I completed the [employer] paperwork an effort to best facilitate the most appropriate disposition for this patient. Altered hospital for me they currently do not have any beds however they suspect they will have within the next few hours. While the patient remains U we will continue to follow along and provide support. Vital Signs/I&O Vital Signs Date Time Temp Pulse Resp B/P (MAP) Pulse Ox O2 Delivery O2 Flow Rate FiO2 03/23/18 12:23 20 03/23/18 06:10 97.8 100 131/60 (83) 94 Laboratory Data Labs 24H Laboratory Tests 2 03/22/18 14:04: Bedside Glucose (Misc Panel) 97 03/22/18 14:08: Urine Color BALTA, Urine Appearance CLOUDYH, Urine pH 5.0, Urine Specific [place] 1.017, Urine Protein 1+H, Urine Glucose (UA) NEGATIVE, Urine Ketones TRACEH, Urine Blood 1+H, Urine Nitrite NEGATIVE, Urine Bilirubin NEGATIVE, Urine Urobilinogen 4.0H, Urine Leukocyte Esterase TRACEH, Urine WBC (Auto) 0, Urine RB C (Auto) 1, Urine Hyaline Casts (Auto) 0, Urine Bacteria (Auto) 3+H, Urine Squamous Epithelial Cells 0, Urine Mucus (Auto) LARGE, Urine Sperm (Auto) , Urine Amphetamines Screen NEGATIVE, Urine Benzodiazepines Screen NEGATIVE, Urine Opiates Screen POSITIVEH, Urine Methadone Screen NEGATIVE, Urine Barbiturates Screen NEGATIVE, Urine Phencyclidine Screen NEGATIVE, Urine Cocaine Metabolite Screen NEGATIVE, Urine Cannabinoids Screen NEGATIVE 03/22/18 14:09: Blood Gas Bicarbonate Standard 27.8H, Arterial Blood pH 7.476H, Arterial Blood Partial Pressure CO2 38.1, Arterial Blood Partial Pressure O2 77.0, Arterial Blood Total CO2 28.7, Arterial Blood HCO3 27.5H, Arterial Blood Base Excess 3.7H, Arterial Blood Oxygen Saturation 95.9 03/22/18 14:24: Anion Gap 8, Glomerular Filtration Rate > 60.0, Calcium Level 8.3L, Aspartate Amino Transf (AST/SGOT) 10, Alanine Aminotransferase (ALT/SGPT) 10L, Alkaline Phosphatase 209H, Total Bilirubin 0.5, Direct Bilirubin 0.3H, Ammonia 14, Total Creatine Kinase 18L, Creatine Kinase MB < 1.0, Creatine Kinase MB Relative Index 5.56H, Troponin I < 0.02, Total Protein 4.8L, Albumin 2.2L, Albumin/Globulin Ratio 0.85L, Thyroid Stimulating Hormone (TSH) 3.410 03/22/18 14:26: White Blood Count 13.4H, Red Blood Count 3.48L, Hemoglobin 9.6L, Hematocrit 31.8L, Mean Corpuscular Volume 91.4, Mean Corpuscular Hemoglobin 27.6, Mean Corpuscular Hemoglobin Concent 30.2L, Red Cell Distribution Width 18.2H, Platelet Count 370, Monocytes # (Auto) , Nucleated Red Blood Cells % (auto) 0.2H, Neutrophils 69, Band Neutrophils 10, Lymphocytes (Manual) 2L, Monocytes (Manual) 13H, Eosinophils (Manual) 2, Basophils (Manual) 1, Atypical Lymphocytes 3, Toxic Granulation 1+, Platelet Estimate NORMAL, Schistocytes 1+, Lactic Acid Level 1.1 CBC/BMP Laboratory Tests 03/22/18 14:24 03/22/18 14:26 Red Blood Count 3.48 L, Mean Corpuscular Volume 91.4, Mean Corpuscular Hemoglobin 27.6, Mean Corpuscular Hemoglobin Concent 30.2 L, Red Cell Distribution Width 18.2 H, Monocytes # (Auto) Microbiology Microbiology 03/22/18 Blood Culture, Received Pending 03/22/18 Blood Culture, Received Pending 03/22/18 Urine Culture, Received Pending Allergies Coded Allergies: No Known Allergies (Verified , 03/22/18) Home Medications Scheduled (Citracal + D3 Maximum 315-250 mg-Unit) 1 Tab Tab, 1 TAB PO QID, (Reported) (Multivitamins) 1 Cap Cap, 1 CAP PO DAILY, (Reported) (Flax Seed Oil 1000 mg) 1 Cap Cap, 1 CAP PO DAILY, (Reported) (mg-Plus Protein 133 mg) 1 Tab Tab, 1 TAB PO DAILY, (Reported) (mg-Plus Protein 133 mg) 1 Tab Tab, 2 TAB PO TID, (Reported) LUNCH, DINNER, QHS (Acidophilus Probiotic) 100 Mg Cap, 100 MG PO TID, (Reported) (Restasis) 0.05 % Emu, 1 DROP OU BID, (Reported) Bupropion HCl (Bupropion HCl ER) 200 Mg Tab, 200 MG PO BID for depression, #14 Cholecalciferol (Vitamin D) 1,000 Unit Tab, 5,000 UNIT PO DAILY, (Reported) Cholecalciferol (Vitamin D3) 2,000 Unit Cap, 2,000 UNIT PO DAILY, (Reported) Cholecalciferol (D3-50) 50,000 Unit Cap, 50,000 UNIT PO QWEEK, (Reported) Cholestyramine (Cholestyramine) 4 Gm Pow, 4 GM PO BID, (Reported) Cyanocobalamin (Vitamin B12) 1,000 Mcg Tab, 1,000 MCG PO DAILY, (Reported) Fish Oil (Fish Oil) 1,000 Mg Cap, 1,000 MG PO DAILY, (Reported) Folic Acid (Folic Acid) 1 Mg Tab, 1 MG PO DAILY, (Reported) Gabapentin (Gabapentin) 100 Mg Cap, 100 MG PO TID for pain/anxiety, #21 Lactobacillus Acidophilus (Bacid) 1 Tab Tab, 2 TABS PO TID, (Reported) Methylprednisolone (Methylprednisolone) 4 Mg Tab, 4 MG PO DAILY, (Reported) Metoprolol Succinate (Metoprolol Succinate ER) 25 Mg Tab, 25 MG PO DAILY, (Reported) Pantoprazole Sodium Sesquihydr (Protonix) 40 Mg Tab, 40 MG PO BID, (Reported) Penicillin V Potassium (Penicillin V Potassium) 500 Mg Tab, 500 MG PO BID, (Reported) Salmeterol/Fluticasone (Advair Diskus 100-50 Mcg/Dose) 28 Puff/Inhaler Aerp, 1 PUFF INH BID, (Reported) Tacrolimus (Protopic) 0.1 % Oin, 1 DOSE TOP BID, (Reported) Tacrolimus (Tacrolimus) 0.5 Mg Cap, 0.5 MG PO BID, (Reported) Scheduled PRN (Systane Preservative Free 0.4-0.3 %) 1 Liz Liz, 1 DROP OU Q1H PRN for DRY EYES, (Reported) Acetaminophen (Tylenol) 325 Mg Tab, 650 MG PO Q4H PRN for PAIN, (Reported) Artificial Tears (Akwa Tears) 1.4 % Liz, 2 DROP OU QID PRN for DRY EYES, (Reported) Clonazepam (Clonazepam) 0.5 Mg Tab, 1 MG PO BID PRN for ANXIETY, #14 Fentanyl (Duragesic) 50 Mcg/Hr Dis, 50 MCG TD Q3D PRN for PAIN, (Reported) Guaifenesin (Guaifenesin) 100 Mg/5 Ml Syp, 20 ML PO QID PRN for COUGH, (Reported) Lactase (Lactaid) 3,000 Unit Tab, 3,000 UNIT PO TID PRN for INDIGESTION, (Reported) Loperamide HCl (Loperamide HCl) 2 Mg Cap, 4 MG PO QID PRN for AFTER EACH LOOSE STOOL, (Reported) Oxycodone HCl (Oxycodone HCl) 5 Mg Tab, 10 MG PO Q6H PRN for PAIN, (Reported) Simethicone (Simethicone) 80 Mg Chew, 80 MG PO QID PRN for GAS PAIN, (Reported) Trazodone HCl (Trazodone HCl) 50 Mg Tab, 50 MG PO QHSP PRN for INSOMNIA, #7 Anny Sam Mar 23, 2018 14:04 JEANNETTE HERNANDEZ MD Mar 27, 2018 14:45
[2018-03-23] MEDS: oxyCODONE 5MG TAB PO PRN (14:36)
--- NOTE | 2018-03-23 15:38 | MHDSPDOC ---
[facility] Discharge Summary Discharge Summary DATE OF ADMISSION: Mar 22, 2018 at 22:22 DATE OF DISCHARGE: DISCHARGE DIAGNOSES: 1. Depression secondary to other medical problems 2. Anxiety secondary to other medical problems 3. leukemia REASON FOR ADMISSION: As per ED report yesterday: "Pt. family called EMS because pt. has not been eating, taking meds, minimally talking for past two days. Family concerned because pt. is usually talkative and engages easily with frinds,family. Pt. 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 Pt. answers questions minimally, is oriented and alert. Pt. cristian often during interview. She admits to feeling depressed, does not answer to question about having suicidal thoughts. Pt. family state that granchildren visited on Wednesday and pt. seemed fine. On Wednesday pt. refused to eat, would not take meds and has been crying, has not been communicating with them." Today, when I went to evaluate her: "Patient is a 63 -year-old , female, who was admitted to [facility] by Dr. Lr last night but she can't tell me this morning why she is at the ED, why she was brought in. She asked several times where was she at and we told her that she was at the Emergency Department but she kept forgetting. 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 Lr [facility] but she forgot about it and she asked the same question several times, to me and her sister who arrived to visit her. She doesn't know what date is today. She is shaking because she is in severe pain and she can't stand her bed cover (that is very light) but she gets cold and she asks for the cover again. She is bandaged on her right leg because she has leg sores. She doesn't answer questions, her memory is not good at this time." CONSULTANTS INVOLVED: Dr. Noyola TREATMENT AND PROGRESS ON THE UNIT : She was never admitted to [facility] because she was too ill, and Staff and myself thought she wouldn't benefit from being at [facility], she is certainly anxious and tearful (at times), but she said, when she cried, that "I don't want to ". She has remained at the emergency Department because at the Psychiatric Unit we wouldn't have been able to assist her with her IV medications or the Fentanyl patch, which are not allowed in this floor, mainly for safety. She didn't answer my questions but she asked several times where was she at, where was Dr. Lr and we answered her questions but she forgot what we had told her and she would ask the same questions again. She is in pain, secondary to her medical illness, so much pain, that she shivers. She couldn't stand her covers on her legs and she asked me to remove her covers and then when she became cold, to cover her again. She received her pain medications at the ED. I was able to speak with her daughter. Zenaida Rodríguez, Bale Coverer Charge Nurse from the Inpatient mental health Uni, Tigre Maurice, Catalyst Supervisor from the ED and the Compound Worker were present while I spoke with her and told her I didn't think the Inpatient mental health Unit was the most appropriate setting for her, that I thought she needed medical care and probably seeing her Oncologist wouldn't be a bad idea. her daughter agreed and she said that she thought IMHU was not what her mother needed and she thought that sending her to [facility] to her Oncologist, would be better for her. She said she would talk to her family and her family agreed. Dr. Noyola and CARMITA Arredondo, evaluated her and he called [facility] and spoke to her Oncologist who called him back and said they would accept her there. When I saw the patient she was not able to ambulate by herself because she is very frail. She is not angry, not violent, not psychotic. She is not responding to internal stimuli. HOSPITAL COURSE: As above DISCHARGE ASSESSMENT: She is not in danger to self or others, she is not homicidal, not suicidal and not psychotic MENTAL STATUS EXAMINATION ON DISCHARGE: Patient is a 63 year old female, who is alert, almost speechless, dressed in hospital gown, laying in bed at the Emergency Department. Speech is impoverished, she couldn't answer my questions. Language skills unable o assess, patient is not talking Thought processes including: she does not seem psychotic, she is not angry but she doesn't seem to process information well, maybe because she is anxious about dying. Thought content: focused on "I don't want to ". Anxious thoughts Abstract reasoning, and computation: Unable to assess Description of associations: Unable to assess. Description of abnormal or psychotic thoughts: She is not responding to interna stimuli, she is not violent or aggressive. She has not voiced suicidal thoughts or homicidal thoughts Judgment: Poor Insight: Poor. Orientation to not oriented to date, time or place. Recent and remote memory: Limited ( mostly because she is in pain and she is afraid to ) Attention span and concentration: Limited Language: Poor Fund of knowledge: unable to assess. Mood: sad/depressed/anxious. Affect: congruent with mood. MEDICATIONS ON DISCHARGE: Scheduled (Citracal + D3 Maximum 315-250 mg-Unit) 1 Tab Tab, 1 TAB PO QID, (Reported) (Multivitamins) 1 Cap Cap, 1 CAP PO DAILY, (Reported) (Flax Seed Oil 1000 mg) 1 Cap Cap, 1 CAP PO DAILY, (Reported) (mg-Plus Protein 133 mg) 1 Tab Tab, 1 TAB PO DAILY, (Reported) (mg-Plus Protein 133 mg) 1 Tab Tab, 2 TAB PO TID, (Reported) LUNCH, DINNER, QHS (Acidophilus Probiotic) 100 Mg Cap, 100 MG PO TID, (Reported) (Restasis) 0.05 % Emu, 1 DROP OU BID, (Reported) Bupropion HCl (Bupropion HCl ER) 200 Mg Tab, 200 MG PO BID, (Reported) Cholecalciferol (Vitamin D) 1,000 Unit Tab, 5,000 UNIT PO DAILY, (Reported) Cholecalciferol (Vitamin D3) 2,000 Unit Cap, 2,000 UNIT PO DAILY, (Reported) Cholecalciferol (D3-50) 50,000 Unit Cap, 50,000 UNIT PO QWEEK, (Reported) Cholestyramine (Cholestyramine) 4 Gm Pow, 4 GM PO BID, (Reported) Cyanocobalamin (Vitamin B12) 1,000 Mcg Tab, 1,000 MCG PO DAILY, (Reported) Fish Oil (Fish Oil) 1,000 Mg Cap, 1,000 MG PO DAILY, (Reported) Folic Acid (Folic Acid) 1 Mg Tab, 1 MG PO DAILY, (Reported) Gabapentin (Gabapentin) 100 Mg Cap, 100 MG PO TID, (Reported) Lactobacillus Acidophilus (Bacid) 1 Tab Tab, 2 TABS PO TID, (Reported) Methylprednisolone (Methylprednisolone) 4 Mg Tab, 4 MG PO DAILY, (Reported) Metoprolol Succinate (Metoprolol Succinate ER) 25 Mg Tab, 25 MG PO DAILY, (Reported) Pantoprazole Sodium Sesquihydr (Protonix) 40 Mg Tab, 40 MG PO BID, (Reported) Penicillin V Potassium (Penicillin V Potassium) 500 Mg Tab, 500 MG PO BID, (Reported) Salmeterol/Fluticasone (Advair Diskus 100-50 Mcg/Dose) 28 Puff/Inhaler Aerp, 1 PUFF INH BID, (Reported) Tacrolimus (Protopic) 0.1 % Oin, 1 DOSE TOP BID, (Reported) Tacrolimus (Tacrolimus) 0.5 Mg Cap, 0.5 MG PO BID, (Reported) Scheduled PRN (Systane Preservative Free 0.4-0.3 %) 1 Liz Liz, 1 DROP OU Q1H PRN for DRY EYES, (Reported) Acetaminophen (Tylenol) 325 Mg Tab, 650 MG PO Q4H PRN for PAIN, (Reported) Artificial Tears (Akwa Tears) 1.4 % Liz, 2 DROP OU QID PRN for DRY EYES, (Reported) Clonazepam (Clonazepam) 0.5 Mg Tab, 1 MG PO BID PRN for ANXIETY, (Reported) Fentanyl (Duragesic) 50 Mcg/Hr Dis, 50 MCG TD Q3D PRN for PAIN, (Reported) Guaifenesin (Guaifenesin) 100 Mg/5 Ml Syp, 20 ML PO QID PRN for COUGH, (Reported) Lactase (Lactaid) 3,000 Unit Tab, 3,000 UNIT PO TID PRN for INDIGESTION, (Reported) Loperamide HCl (Loperamide HCl) 2 Mg Cap, 4 MG PO QID PRN for AFTER EACH LOOSE STOOL, (Reported) Oxycodone HCl (Oxycodone HCl) 5 Mg Tab, 10 MG PO Q6H PRN for PAIN, (Reported) Simethicone (Simethicone) 80 Mg Chew, 80 MG PO QID PRN for GAS PAIN, (Reported) PLAN/FOLLOWUP ARRANGEMENTS: Patient is being transferred to [facility], where she is going to receive medical care The amount of time spent in the coordination of care for this patient was approximately 75 minutes. Vital Signs/I&Os Vital Signs Date Time Temp Pulse Resp B/P (MAP) Pulse Ox O2 Delivery O2 Flow Rate FiO2 03/23/18 14:45 109/57 (74) 03/23/18 14:36 20 94 Room Air 03/23/18 14:33 97.7 125 Laboratory Data Microbiology Microbiology 03/22/18 Blood Culture - Preliminary, Resulted No growth after 24 hours . All specim... 03/22/18 Blood Culture - Preliminary, Resulted No growth after 24 hours . All specim... 03/22/18 Urine Culture, Received Pending Medications Scheduled (Citracal + D3 Maximum 315-250 mg-Unit) 1 Tab Tab, 1 TAB PO QID, (Reported) (Multivitamins) 1 Cap Cap, 1 CAP PO DAILY, (Reported) (Flax Seed Oil 1000 mg) 1 Cap Cap, 1 CAP PO DAILY, (Reported) (mg-Plus Protein 133 mg) 1 Tab Tab, 1 TAB PO DAILY, (Reported) (mg-Plus Protein 133 mg) 1 Tab Tab, 2 TAB PO TID, (Reported) LUNCH, DINNER, QHS (Acidophilus Probiotic) 100 Mg Cap, 100 MG PO TID, (Reported) (Restasis) 0.05 % Emu, 1 DROP OU BID, (Reported) Bupropion HCl (Bupropion HCl ER) 200 Mg Tab, 200 MG PO BID, (Reported) Cholecalciferol (Vitamin D) 1,000 Unit Tab, 5,000 UNIT PO DAILY, (Reported) Cholecalciferol (Vitamin D3) 2,000 Unit Cap, 2,000 UNIT PO DAILY, (Reported) Cholecalciferol (D3-50) 50,000 Unit Cap, 50,000 UNIT PO QWEEK, (Reported) Cholestyramine (Cholestyramine) 4 Gm Pow, 4 GM PO BID, (Reported) Cyanocobalamin (Vitamin B12) 1,000 Mcg Tab, 1,000 MCG PO DAILY, (Reported) Fish Oil (Fish Oil) 1,000 Mg Cap, 1,000 MG PO DAILY, (Reported) Folic Acid (Folic Acid) 1 Mg Tab, 1 MG PO DAILY, (Reported) Gabapentin (Gabapentin) 100 Mg Cap, 100 MG PO TID, (Reported) Lactobacillus Acidophilus (Bacid) 1 Tab Tab, 2 TABS PO TID, (Reported) Methylprednisolone (Methylprednisolone) 4 Mg Tab, 4 MG PO DAILY, (Reported) Metoprolol Succinate (Metoprolol Succinate ER) 25 Mg Tab, 25 MG PO DAILY, (Reported) Pantoprazole Sodium Sesquihydr (Protonix) 40 Mg Tab, 40 MG PO BID, (Reported) Penicillin V Potassium (Penicillin V Potassium) 500 Mg Tab, 500 MG PO BID, (Reported) Salmeterol/Fluticasone (Advair Diskus 100-50 Mcg/Dose) 28 Puff/Inhaler Aerp, 1 PUFF INH BID, (Reported) Tacrolimus (Protopic) 0.1 % Oin, 1 DOSE TOP BID, (Reported) Tacrolimus (Tacrolimus) 0.5 Mg Cap, 0.5 MG PO BID, (Reported) Scheduled PRN (Systane Preservative Free 0.4-0.3 %) 1 Liz Liz, 1 DROP OU Q1H PRN for DRY EYES, (Reported) Acetaminophen (Tylenol) 325 Mg Tab, 650 MG PO Q4H PRN for PAIN, (Reported) Artificial Tears (Akwa Tears) 1.4 % Liz, 2 DROP OU QID PRN for DRY EYES, (Reported) Clonazepam (Clonazepam) 0.5 Mg Tab, 1 MG PO BID PRN for ANXIETY, (Reported) Fentanyl (Duragesic) 50 Mcg/Hr Dis, 50 MCG TD Q3D PRN for PAIN, (Reported) Guaifenesin (Guaifenesin) 100 Mg/5 Ml Syp, 20 ML PO QID PRN for COUGH, (Reported) Lactase (Lactaid) 3,000 Unit Tab, 3,000 UNIT PO TID PRN for INDIGESTION, (Reported) Loperamide HCl (Loperamide HCl) 2 Mg Cap, 4 MG PO QID PRN for AFTER EACH LOOSE STOOL, (Reported) Oxycodone HCl (Oxycodone HCl) 5 Mg Tab, 10 MG PO Q6H PRN for PAIN, (Reported) Simethicone (Simethicone) 80 Mg Chew, 80 MG PO QID PRN for GAS PAIN, (Reported) Allergies Coded Allergies: No Known Allergies (Verified , 03/22/18) ISAIAH CARSON MD Mar 23, 2018 15:12
[2018-03-23] MEDS ORDERED: CLON0.5T8 PO (15:52)
[2018-03-23] MEDS ORDERED: TRAZO50TA PO (15:52)
[2018-03-23] MEDS ORDERED: GABA-1171 PO (15:52)
[2018-03-23] MEDS ORDERED: BUPR1TAB56 PO (15:52)
--- NOTE | 2018-03-23 17:34 | ECGEPIP ---
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
[2018-03-23] MEDS: PANTOPRAZOLE 40MG TAB (PROTONIX) PO SCH (20:31)
[2018-03-24] MEDS: oxyCODONE 5MG TAB PO PRN ×4 (02:01→23:07)
[2018-03-24] MEDS: CHOLESTYRAMINE 4 GM PWD PKT PO SCH ×2 (05:00→17:10)
[2018-03-24 07:15] LABS: HEMATOCRIT 25.6 % (36.0-47.0); HEMOGLOBIN 7.8 g/dl (12.0-15.5); MEAN CORPUSCULAR HEMOGLOBIN 27.3 pg (27.0-33.0); MEAN CORPUSCULAR HGB CONC 30.5 g/dl (32.0-36.5); MEAN CORPUSCULAR VOLUME 89.5 fl (80.0-96.0); PLATELET COUNT, AUTOMATED 330 10^3/uL (150-450); RED BLOOD COUNT 2.86 10^6/uL (4.00-5.40); WHITE BLOOD COUNT 7.4 10^3/uL (4.0-10.0)
[2018-03-24 07:31] LABS: BLOOD UREA NITROGEN 15 MG/DL (7-18); CALCIUM LEVEL 8.1 MG/DL (8.8-10.2); CARBON DIOXIDE LEVEL 28 MEQ/L (21-32); CHLORIDE LEVEL 108 MEQ/L (98-107); CREATININE FOR GFR 0.67 MG/DL (0.55-1.30); GLOMERULAR FILTRATION RATE > 60.0 (>45); GLUCOSE, FASTING 127 MG/DL (70-100); POTASSIUM SERUM 3.5 MEQ/L (3.5-5.1); SODIUM LEVEL 142 MEQ/L (136-145)
[2018-03-24] MEDS: GABAPENTIN 100 MG CAP PO SCH ×3 (09:34→22:38)
[2018-03-24] MEDS: PANTOPRAZOLE 40MG TAB (PROTONIX) PO SCH ×2 (09:34→22:37)
[2018-03-24] MEDS: LACTOBACILLUS ACIDOPHILUS CAP (BACID) PO SCH ×3 (09:35→22:37)
[2018-03-24] MEDS: VITAMIN D 1,000 INTERNATIONAL UNITS TABLET PO SCH (09:35)
[2018-03-24] MEDS: METOPROLOL SUCC *XL* 25MG TAB (TopROL *XL*) PO SCH (09:56)
[2018-03-24 10:02] LABS: FERRITIN 450 NG/ML (8-252); IRON (FE) 31 UG/DL (50-170); PERCENT SATURATION 26.1 % (13.2-45.0); TOTAL IRON BINDING CAPACITY 119 UG/DL (250-450)
[2018-03-24 10:10] LABS: VITAMIN B12 LEVEL > 2000 PG/ML (247-911)
[2018-03-24] MEDS: TACROLIMUS 0.5 MG CAP PO SCH ×2 (10:28→22:37)
[2018-03-24] MEDS: buPROPion (WELLBUTRIN SR) 100 MG SR TAB PO SCH ×2 (10:28→22:37)
[2018-03-24] MEDS ORDERED: DOXYCYCLINE HYCLATE 100 MG in D5W MINI-BAG PLUS 100 ML IV SCH (11:00)
--- NOTE | 2018-03-24 11:21 | IPNPDOC ---
Date Seen The patient was seen on 03/24/18. Progress Note Attending Dr Hernandez HPI: 63year oldF who has extensive PMH, including AML, S/P Stem cell transplant 2013, GVHD, who follows Q2 weekly for apheresis at [facility]. The pt was brought in by family related to depression, poor po intake, not taking her meds, generally not acting herself. The patient is awake and appropriately responding to questions. She is requesting to eat breakfast. Still reporting diffuse pain. Unable to take care of herself at home. PHN assists at home with dressing changes. Denies any fevers, chills, Headache, Chest Pain, Shortness of breath, cough, palpitations, abdominal pain, N/V/D or changes in bowel or bladder habits. PAST MEDICAL HISTORY: Acute myeloid leukemia (AML) status post stem cell transplantation in 2012, with chronic uxalu-tsubbq-kfug disease, with mostly skin manifestation, but also patient had liver manifestation in the past. Chronic ulcerations from multiple body sites including abdomen, scalp, B/L lower extremity. Follows up with Dr. Herrera. Apheresis every two weeks with [facility] Chronic Anemia History of DVT Obesity status post gastric bypass History of pancytopenia next and bone marrow transplant GERD Chronic opioid use due to pain H/O Seizure depression PAST SURGICAL HISTORY: Hysterectomy Gastric bypass PE: GEN: 63yoF. Thin, ill appearing. No acute distress eating up in bed. Alert and responding to questions. Oriented to person, time and place. HEENT: Normocephalic, atraumatic. Sclera are nonicteric. Conjunctiva without injection. No facial asymmetry. Moist mucous membranes. Neck supple, trachea midline. No lymphadenopathy or thyromegaly appreciated. CHEST: Reg +S1, +S2 LUNGS: Clear to auscultation bilaterally. No wheezes, rales, or rhonchi. Breathing appears symmetric and easy. Patient is speaking in full sentences. No accessory muscle use. ABD: Round, soft, non-tender, non-distended. +Bowel sounds throughout. No rebound or guarding. No costovertebral angle tenderness. SKIN: Diffuse skin lesions and ulcerations with bandages intact. Bandages B/L LEs NEURO: No focal deficits appreciated. EKG SINUS TACHYCARDIA BASELINE ARTIFACT AFFECTS INTERPRETATION RATE CHANGE COMPARED TO 01/04/18 Electronically Signed On 03-23-2018 17:33:52 EDT by Jose Cruz Soriano CXR No active disease. Electronically Signed by Mahendra Clark MD 03/22/2018 02:08 P CTH Small vessel ischemic disease. Electronically Signed by Asael Parks MD 03/22/2018 02:09 P BC x 2 preliminary no growth. UC Organism 1 E.COLI ESBL COLONY COUNT >100,000 CFU/ml. A&P: 63year oldF who has extensive PMH, including AML, S/P Stem cell transplant 2012, GVHD, who follows Q2 weekly for apheresis at [facility]. The pt was brought in by family related to depression, poor po intake, not taking her meds, generally not acting herself. The pt is reviewed and discussed with Dr Hernandez who will continue to follow the pt. 1. Symptomatic anemia. Patient's hemoglobin noted to be 7.8. Baseline 9-10. Consent for blood products is placed on the chart. Iron studies, B12, folate pending. FOB pending. Plan to transfuse 2 units PRBCs today. Recheck CBC at 18:00 hrs. 2. Leukocytosis. Resolved. 7.4 this AM. Decreased from 13.4 03/22/18. TMax 100.1 1745 hrs. 03/22/18. Afebrile since. Heart rate 80. Blood pressure 100/57. UC result noted, possible colonization. Pt is asymptomatic. Discussed with Dr. Hernandez, hold off on antibiotics at this time. Monitor. 3. Chronic wounds. Patient follows as outpatient with Dr. Herrera. Continue dressing changes and wound care. Request wound care consult. 4. Acute on chronic pain. Continue current regimen. Continue fentanyl patch every 3 days. Continue oxycodone 10 mg every 6 hours as needed. Continue gabapentin 100 mg by mouth 3 times a day. Request pain management consultation. 5. Debility. Pt has been unable to care for self at home, not eating, not drinking. nutrition Clt requested. Request PT/OT/PFS. 6. H/O Acute myeloid leukemia (AML) status post stem cell transplantation in 2012, with chronic qfdam-uarles-fojy disease, with mostly skin manifestation. Patient follows with Dr. Miranda, [facility]. Patient receives apheresis treatments every 2 weeks as per [facility], with next treatment due 03/31/18. Continue Tacrolimus. Patient remains on Medrol 4 mg by mouth daily 7. GERD. Continue Protonix. 8. Hypertension. Continue Toprol-XL 25 mg by mouth daily with hold parameters. 9. Depression. Continue Wellbutrin. Attending note: Patient was seen and evaluated yesterday please see yesterday's note for full details plan was for transfer to [facility] yesterday afternoon however no beds were made available this morning the patient does appear to be improved no evidence of encephalopathy or leukocytosis has resolved she is no longer tachycardic she is feeling much better and her pain is better controlled she is more engaging with providing history. Given this improvement in clinical status I did once again called [facility] see about their bed situation Dr. Thayer follows this patient long-term was available to discuss the case I did explain to her the patient's presentation are current plan of management and future plans Dr. Thayer does not feel the patient needs urgent need pheresis and does not require urgent transfer. As such transferred [facility] has been canceled. Given the patient's poor functional status and chronic pain and inability to care for herself at home she will be admitted to the medical service. I plan to have her evaluated by PFS to assess for any additional services we can provide at home, a pain management consult in order to better control her pain and improve her functional status following this PT and OT to assess her functional status, as well as a nutritional consult in order to best optimize her diet. Given the fatigue she exhibited yesterday and the drop in her hemoglobin on provided with 2 units of PRBCs I hope with the aforementioned measures we are able to improve her functional status to the point where she is able to return home however did have a lengthy discussion with both the patient and her daughter who is healthcare proxy that given the chronicity and progressive nature of her zstxo-sjaecb-ginm disease in his resistant nature as well that over time advancing age her condition is likely to progressively deteriorate I'm optimistic about her ability to return home however with these measures if she is unable to care for herself will be cared for with interventions by PFS in family patient and her proxy should consider assisted living facilities versus [facility]ci facilities. Her long-term prognosis is poor. The patient of note does have a positive urine culture for ESBL for the time being I'll hold off on treatment as she does appear to be significantly improved today she no longer has a leukocytosis she is no longer tachycardic clinically she is improving without antibiotic treatment and she does not describe any symptoms I suspect that this will be a symptom medic bacteriuria however should she decline would consider infectious disease consultation VS, I&O, 24H, Darshane Vital Signs/I&O Vital Signs Date Time Temp Pulse Resp B/P (MAP) Pulse Ox O2 Delivery O2 Flow Rate FiO2 03/24/18 09:57 15 03/24/18 09:35 101/60 (74) 03/24/18 09:04 80 97 Room Air 03/24/18 06:00 97.9 Laboratory Data 24H LABS Laboratory Tests 2 03/24/18 06:59: Nucleated Red Blood Cells % (auto) 0.3H, Anion Gap 6L, Glomerular Filtration Rate > 60.0, Blood Urea Nitrogen 15, Creatinine 0.67, Sodium Level 142, Potassium Level 3.5, Chloride Level 108H, Carbon Dioxide Level 28, Calcium Level 8.1L 03/24/18 09:13: Iron Level 31L, Total Iron Binding Capacity 119L, Transferrin % Saturation 26.1, Ferritin 450H, Vitamin B12 Level > 2000H, Folate 17.0 CBC/BMP Laboratory Tests 03/24/18 06:59 Red Blood Count 2.86 L, Mean Corpuscular Volume 89.5, Mean Corpuscular Hemoglobin 27.3, Mean Corpuscular Hemoglobin Concent 30.5 L, Red Cell Distribut ion Width 18.2 H, Calcium Level 8.1 L Microbiology Microbiology 03/22/18 Blood Culture - Preliminary, Resulted No growth after 24 hours . All specim... 03/22/18 Blood Culture - Preliminary, Resulted No growth after 24 hours . All specim... 03/22/18 Urine Culture - Preliminary, Resulted E.coli Esbl Anny Sam Mar 24, 2018 11:21 CHAZ HERNANDEZ MD Mar 27, 2018 14:50
[2018-03-24 12:30] VITALS: BP 97/61
[2018-03-24 14:00] VITALS: BP 95/65
[2018-03-24 22:00] VITALS: BP 123/72
[2018-03-25 01:29] LABS: HEMATOCRIT 33.2 % (36.0-47.0); MEAN CORPUSCULAR HEMOGLOBIN 28.2 pg (27.0-33.0); MEAN CORPUSCULAR HGB CONC 31.3 g/dl (32.0-36.5); PLATELET COUNT, AUTOMATED 304 10^3/uL (150-450); RED BLOOD COUNT 3.69 10^6/uL (4.00-5.40); WHITE BLOOD COUNT 10.8 10^3/uL (4.0-10.0)
[2018-03-25 01:36] LABS: HEMOGLOBIN 10.4 g/dl (12.0-15.5)
[2018-03-25] MEDS: CHOLESTYRAMINE 4 GM PWD PKT PO SCH ×2 (05:19→18:05)
[2018-03-25 06:00] VITALS: BP 110/56
[2018-03-25 07:23] LABS: HEMATOCRIT 32.6 % (36.0-47.0); HEMOGLOBIN 10.1 g/dl (12.0-15.5); MEAN CORPUSCULAR VOLUME 90.3 fl (80.0-96.0); PLATELET COUNT, AUTOMATED 308 10^3/uL (150-450); RED BLOOD COUNT 3.61 10^6/uL (4.00-5.40); WHITE BLOOD COUNT 11.1 10^3/uL (4.0-10.0)
[2018-03-25 07:50] LABS: ALBUMIN 1.8 GM/DL (3.2-5.2); ALT/SGPT 10 U/L (12-78); BILIRUBIN,TOTAL 0.4 MG/DL (0.2-1.0); BLOOD UREA NITROGEN 17 MG/DL (7-18); CARBON DIOXIDE LEVEL 27 MEQ/L (21-32); CHLORIDE LEVEL 111 MEQ/L (98-107); CREATININE FOR GFR 0.48 MG/DL (0.55-1.30); GLOMERULAR FILTRATION RATE > 60.0 (>45); GLUCOSE, FASTING 87 MG/DL (70-100); SODIUM LEVEL 144 MEQ/L (136-145); TOTAL PROTEIN 4.8 GM/DL (6.4-8.2)
[2018-03-25] MEDS: oxyCODONE 5MG TAB PO PRN ×2 (09:13→15:29)
[2018-03-25] MEDS: VITAMIN D 1,000 INTERNATIONAL UNITS TABLET PO SCH ×2 (09:13→09:17)
[2018-03-25] MEDS: CYANOCOBALAMIN 500 MCG TAB PO SCH (09:13)
[2018-03-25] MEDS: METOPROLOL SUCC *XL* 25MG TAB (TopROL *XL*) PO SCH (09:16)
[2018-03-25] MEDS: LACTOBACILLUS ACIDOPHILUS CAP (BACID) PO SCH ×3 (09:16→21:19)
[2018-03-25] MEDS: PANTOPRAZOLE 40MG TAB (PROTONIX) PO SCH ×2 (09:16→21:20)
[2018-03-25] MEDS: buPROPion (WELLBUTRIN SR) 100 MG SR TAB PO SCH ×2 (09:16→21:19)
[2018-03-25] MEDS: TACROLIMUS 0.5 MG CAP PO SCH ×2 (09:16→21:19)
[2018-03-25] MEDS: methylPREDNISolone 4 MG TAB PO SCH (09:16)
[2018-03-25] MEDS: FOLIC ACID 1 MG TAB PO SCH (09:17)
[2018-03-25] MEDS: GABAPENTIN 100 MG CAP PO SCH ×3 (09:17→21:20)
[2018-03-25] MEDS: OMEGA-3 1000MG CAPSULE PO SCH (09:17)
--- NOTE | 2018-03-25 13:30 | IPNPDOC ---
Subjective Date Seen The patient was seen on 03/25/18. Subjective Chief Complaint/HPI . failure to thrive General: Reports: Malaise Constitutional: Reports: Chills Skin: Reports: Lesions (b/l LE multiple open sores wrapped) Cardiovascular: Denies: Chest Pain, Palpitations Gastrointestinal: Denies: Nausea, Vomiting Musculoskeletal: Reports: Other Symptoms (generalized pain worse in b/l legs due to multiple sores) Neurological: Reports: Weakness Psych: Reports: Anxiety Objective Physical Examination General Exam: Positive: Alert, Cooperative, Moderate Distress (from pain in b/l LE sores on legs) Eye Exam: Positive: Conjunctiva & lids normal ENT Exam: Positive: Mucous membr. moist/pink Neck Exam: Positive: Supple Chest Exam: Positive: Clear to auscultation, Diminished; Negative: Rales, Rhonchi, Wheezing Heart Exam: Positive: Rate Normal, Normal S1, Normal S2; Negative: Gallops, Murmurs Abdomen Exam: Positive: Normal bowel sounds, Soft; Negative: Tenderness, Hepatospenomegaly Extremity Exam: Positive: Other (multiple b/l LE open sores wrapped ); Negative: Clubbing, Cyanosis Neuro Exam: Positive: Normal Speech Psych Exam: Positive: Anxiety Assessment /Plan Assessment 1. Leukocytosis -11.1 today, holding antibiotic for now, patients urine is positive for ESBL but she denies frequency of urination, blood in urine or pain with urination, given AML and GVHD will hold abx for now given her immunocompromise state we'll place an infectious disease consult -blood culture negative after 48 hours -she continues to be afebrile -Further management as per [facility] Oncology 2. Chronic wounds -Continue dressing changes and wound care -pain management consulted -will monitor for active infection, less likely so right now 3. Acute on chronic pain. -Continue current regimen, pt. to have pain management consult 4. Debility -PFS consult placed, pt may likely need home services -Pt has been unable to care for self at home, not eating, not drinking well -forklift driver consult placed to make sure she is getting adequate nutritional needs -PT/OT ordered 5. H/O Acute myeloid leukemia (AML) status post stem cell transplantation in 2012 with chronic kjfmf-urljbe-jzgi disease, with mostly skin manifestation -Patient follows with Dr. Miranda, [facility] oncology. -Patient receives apheresis treatments every 2 weeks, with next treatment to 03/31/18. Possible need for sooner treatment -Further management as per [facility] -Continue Tacrolimus -Patient remains on Medrol 4 mg by mouth daily 6. GERD -Continue Protonix. 7. Hypertension -stable -Continue Toprol-XL 25 mg by mouth daily with hold parameters. 8. Chronic anemia -improved today, s/p 2 units pRBC -iron studies demonstrate possibly secondary to anemia of chronic disease -Continue vitamin B12 supplements -Continue folic acid supplements 9. Depression -stable -Management as per psychiatry Plan/VTE VTE Prophylaxis Ordered?: Yes VS, I&O, 24H, Fishbone Vital Signs/I&O Vital Signs Date Time Temp Pulse Resp B/P (MAP) Pulse Ox O2 Delivery O2 Flow Rate FiO2 03/25/18 09:43 20 03/25/18 09:16 120 131/83 03/25/18 06:00 98.2 96 Room Air I&O- Last 24 Hours up to 6 AM 03/25/18 06:00 Intake Total 1243 ml Output Total 1 ml Balance 1242 ml Laboratory Data 24H LABS Laboratory Tests 2 03/25/18 01:22: Nucleated Red Blood Cells % (auto) 0.2H 03/25/18 06:53: Nucleated Red Blood Cells % (auto) 0.4H, Anion Gap 6L, Glomerular Filtration Rate > 60.0, Blood Urea Nitrogen 17, Creatinine 0.48L, Sodium Level 144, Potassium Level 4.0, Chloride Level 111H, Carbon Dioxide Level 27, Calcium Level 8.0L, Aspartate Amino Transf (AST/SGOT) 5L, Alanine Aminotransferase (ALT/SGPT) 10L, Alkaline Phosphatase 137H, Total Bilirubin 0.4, Total Protein 4.8L, Albumin 1.8L, Albumin/Globulin Ratio 0.60L CBC/BMP Laboratory Tests 03/25/18 01:22 Red Blood Count 3.69 L, Mean Corpuscular Volume 90.0, Mean Corpuscular Hemoglobin 28.2, Mean Corpuscular Hemoglobin Concent 31.3 L, Red Cell Distribution Width 17.2 H 03/25/18 06:53 Red Blood Count 3.61 L, Mean Corpuscular Volume 90.3, Mean Corpuscular Hemoglobin 28.0, Mean Corpuscular Hemoglobin Concent 31.0 L, Red Cell Distribution Width 17.3 H, Calcium Level 8.0 L, Aspartate Amino Transf (A ST/SGOT) 5 L, Alanine Aminotransferase (ALT/SGPT) 10 L, Alkaline Phosphatase 137 H, Total Bilirubin 0.4, Total Protein 4.8 L, Albumin 1.8 L Microbiology Microbiology 03/22/18 Blood Culture - Preliminary, Resulted No Growth after 48 hours. All Specime... 03/22/18 Blood Culture - Preliminary, Resulted No Growth after 48 hours. All Specime... 03/22/18 Urine Culture - Final, Complete E.coli Esbl GME ATTESTATION GME ATTESTATION My faculty preceptor for this patient encounter was physically present during the encounter and was fully available. All aspects of the patient interview, ex amination, medical decision making process, and medical care plan development were reviewed and approved by the faculty preceptor. The faculty preceptor is aware and concurs with the plan as stated in the body of this note and will attest to such by his/her cosignature. HOWIE KERNS DO Mar 25, 2018 13:30 CHAZ HERNANDEZ MD Mar 27, 2018 14:53
[2018-03-25 14:00] VITALS: BP 130/80
[2018-03-25] MEDS: ACETAMINOPHEN TAB 650MG DOSE (2X325MG) PO PRN (14:12)
[2018-03-25] MEDS ORDERED: MORPHINE 4 MG/ML 1ML VIAL/SYRINGE (J2270) IV ONE (14:15)
[2018-03-25 15:35] LABS: C REACTIVE PROTEIN QUANTITATIV 8.65 MG/DL (0.00-0.30)
--- NOTE | 2018-03-25 17:07 | CR ---
DATE OF CONSULTATION: 03/25/2018 CONSULTATION REPORT FOR: Dr. Hinton PRIMARY CARE PROVIDER: Madeline Valenzuela NP ATTENDING PHYSICIAN: Dr. Roberts REASON FOR CONSULTATION/CHIEF COMPLAINT: Extended-spectrum beta-lactamase (ESBL), chronic lower extremity ulcerations on the bilateral lower extremities. HISTORY OF PRESENT ILLNESS: Ms. Gates is a 63-year-old female who initially presented to [facility] with profound weakness. The patient states that a week prior to presentation to the hospital she was so profoundly weak that she was unable to get out of bed. At baseline patient is able to minimally ambulate with a walker. The most physically demanding activity that she is able to perform is doing the dishes. She was not eating due to lack of desire and did not report any dysphagia or odynophagia. The patient states that she became confused and her daughter subsequently phones emergency medical services (EMS) at which time she was brought to the hospital and admitted. The patient was initially admitted to inpatient mental health. Hospitalist service was consulted for medical management on 03/23/2018. The patient at that time had complained of generalized pain throughout with the inability to localize her pain. The patient was noted to have chronic wounds on her lower extremities and it was recommended that the patient have continued wound care with dressing changes. Pain management was consulted. Other medications were continued as needed. Infectious disease was consulted for management of asymptomatic bacteruria with extended-spectrum beta-lactamase (ESBL) and bilateral lower extremity wound ulcers. During evaluation at bedside, the patient is crying in pain and appears in significant distress. She denies fevers, night sweats, chills, chest pain, shortness of breath, neck pain, back pain. She further denies any lateralizing weakness and states that she does not have dysuria, hematuria, lower pelvic pain, lower back pain, radiating back pain into her groin, or hematuria. ALLERGIES: No known drug allergies. HOME MEDICATIONS: - acetaminophen 650 mg by mouth every four hours as needed for pain - acidophilus probiotic 100 mg by mouth three times a day - artificial tears two drops in both eyes four times a day as needed for dry eyes - bupropion 200 mg by mouth twice a day with a maximum daily dose of 400 mg for depression - cholecalciferol 5000 units by mouth daily - cholecalciferol 2000 units by mouth daily - cholecalciferol 50,000 units by mouth weekly - cholestyramine 4 grams by mouth twice a day - Citracal plus D Maximum 315/250 mg unit one tablet by mouth four times a day - clonazepam 1 mg by mouth twice a day as needed with a maximum daily dose of 2 mg for anxiety - cyanocobalamin 1000 mcg by mouth daily - fentanyl 50 mcg patch every three days as needed for pain - fish oil 1000 mg by mouth daily - flaxseed oil one capsule by mouth daily - folic acid 1 mg by mouth daily - gabapentin 100 mg by mouth three times a day with a maximum daily dose of 300 mg for pain and anxiety - guaifenesin 200 mL by mouth four times a day as needed for cough - lactase 3000 units by mouth three times a day as needed for indigestion - lactobacillus acidophilus two tablets by mouth three times a day - loperamide 4 mg by mouth four times a day as needed for loose stools - methylprednisolone 4 mg by mouth daily - metoprolol 25 mg by mouth daily - Wl-Abvx-Lxjpvdl 133 mg one tablet by mouth daily - Ki-Njtz-Zmzvzzx 133 mg two tablets by mouth three times a day at lunch, dinner and at bedtime - multivitamin one capsule by mouth daily -oxycodone 10 mg by mouth every six hours as needed for pain - pantoprazole 40 mg by mouth twice a day - penicillin VK 500 mg by mouth twice a day - Restasis one drop in both eyes twice a day - Advair one puff inhaled twice a day - simethicone 80 mg by mouth four times a day as needed for gas pain - Systane one drop in both eyes every hour as needed for dry eyes - tacrolimus one dose topically twice a day - tacrolimus 0.5 mg by mouth twice a day - trazodone 50 mg by mouth at bedtime as needed with a maximum daily dose of 50 mg for insomnia PAST MEDICAL HISTORY: 1. Acute myelogenous leukemia. 2. Udvdp-xbdyck-uorm disease. 3. Depression. 4. Chronic anemia. 5. History of deep venous thrombosis. 6. Obesity, status post gastric bypass. 7. Gastroesophageal reflux disease. 8. History of seizure. 9. Dry eyes. 10. Chronic pain. 11. History of diarrhea. 12. Anxiety. PAST SURGICAL HISTORY: 1. Hysterectomy. 2. Gastric bypass. 3. Scalp biopsy. FAMILY HISTORY: Father is at age 82 from a stroke. Mother is from complications of cardiac bypass surgery at the age of 68. The patient has three siblings. A brother who is at age 38 from a motorcycle accident. A brother who is age 59 and alive and healthy. A sister who is age 58 and alive and healthy. SOCIAL HISTORY: The patient lives with her at home. She uses a walker. She was in 1981. They have an adult son who is age 35 and alive and healthy. They have a daughter who is age 31 and alive and healthy. She has two grandchildren. She has a dog in the home which is a [place] varela named Sterling. 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 She denies tobacco use, alcohol use, and illicit drug use. REVIEW OF SYSTEMS: CONSTITUTIONAL: Denies fever, night sweats, chills. HEENT: Admits to chronic dry eyes, but denies diplopia, vision loss, hearing loss. CARDIOVASCULAR: Denies chest pain, palpitations. RESPIRATORY: Denies shortness of breath. GENITOURINARY: Denies dysuria, hematuria, low pelvic pain, low back pain, radiating groin pain. MUSCULOSKELETAL: Admits to weakness and diffuse chronic pain. GASTROINTESTINAL: Denies nausea, vomiting, abdominal pain, constipation, diarrhea, melena, hematochezia. SKIN: Admits to chronic bilateral lower extremity wounds, dry skin. NEUROLOGICAL: Denies numbness, tingling, lateralizing weakness. ENDOCRINE: Admits to decreased appetite secondary to desire. HEMATOLOGIC/LYMPHATIC: Denies epistaxis, hematemesis, hemoptysis, lymphadenopathy. ALLERGIC/IMMUNOLOGIC: Admits to dry eyes. PHYSICAL EXAMINATION: VITAL SIGNS: Temperature 98.2, heart rate 120, respiratory rate 28, blood pressure 131/83, pulse oximetry 96% on room air. GENERAL APPEARANCE: Frail-appearing, female, appropriately dressed in hospital attire, appears older than stated age, in a significant amount of distress. HEENT: Excoriated, irregularly shaped scalp lesion that extends across the scalp from the hairline in the front, several excoriated and scabbed up regions are noted within this irregularly shaped scalp lesion. Sclerae are injected from crying. Pupils are equal, round, and reactive to light. Extraocular muscles intact. Oral mucosa appears dry. Dentition is in poor condition. No lymphadenopathy appreciated. Trachea is midline. No thyromegaly. RESPIRATORY: Clear to auscultation bilaterally. Adequate inspiratory and expiratory airway excursion, symmetric air entry throughout. No focal consolidations. No wheeze, rhonchi, or crackles. CARDIOVASCULAR: Regular rate and rhythm. Normal S1, S2. No audible murmur, rub, click, tachycardic. ABDOMEN: Soft. Bowel sounds diminished. No organomegaly appreciated. EXTREMITIES: Circumferential bilateral lower extremity wounds that extend from the ankles part way up the lower legs bilaterally. Healthy granulation tissue is noted. Upper extremity bilaterally with skin that appears dry and taught. NEUROLOGICAL: Alert and conversant. PSYCHIATRIC: Distressed, tearful. LABORATORY DATA: WBC 11.1, hemoglobin 10.1, hematocrit 32.6, platelets 308. Sodium 144, potassium 4, chloride 111, bicarbonate 27, BUN 17, creatinine 0.48, glucose 87, calcium 8, iron 31, TIBC 119, transferrin saturation 26.1, ferritin 450, total bilirubin 0.4, AST 5, ALT 10, alkaline phosphatase 137, CRP 8.65. MICROBIOLOGY: Urine culture on 03/22/2018 revealed E. coli ESBL. Blood cultures preliminary negative with no growth after 72 hours on 03/22/2018. BLOOD BANK: The patient has received two units of packed red blood cells on 03/24/2018 for a hemoglobin of 7.8 that was reported on 03/24/2018. IMAGING STUDIES: CT head without contrast on 03/22/2018 revealed small vessel ischemic disease. Portable chest x-ray on 03/22/2018 revealed no active disease. IMPRESSION: This is a 63-year-old female with a history of acute myelogenous leukemia status post stem cell transplant that subsequently developed wezfy-axovtl-sflz disease. Infectious disease consulted for asymptomatic bacteruria and bilateral lower extremity wound ulcerations. PLAN: The patient has asymptomatic bacteruria with Escherichia (E) coli extended-spectrum beta-lactamase (ESBL). No need for antibiotic management at this time. Upon evaluation of bilateral lower extremity wounds they appear healthy with granulation tissue. There is some slough noted on the medial aspect of the right lower leg. After review of health care marketing specialist's notes, wounds have been wrapped with Drawtex, Kerlix, and Coban. Other wounds were dressed with OptiLock dressings. Previous dressings applied to the bilateral lower extremities have included PuraPly with Mepitel which was secured with Steri-Strips and then ultimately covered with an OptiLock dressing. If at all possible, it would be ideal to continue these dressings in the hospital. It appears that the hip and gluteal wounds were dressed with a Hydrofera Blue and OptiLock dressings. Endoform, Versatile, and OptiLock were applied to the left leg wound. Foam dressings were applied to the remaining wounds. My faculty preceptor for this patient encounter was physically present during the encounter and was fully available. All aspects of the patient interview, examination, medical decision making process, and medical care plan development were reviewed and approved by the faculty preceptor. The faculty preceptor is aware and concurs with the plan as stated in the body of this note and will attest to such by his/her co-signature. MAGALIE
--- NOTE | 2018-03-25 17:13 | CR ---
DATE OF CONSULTATION: 03/25/2018 CONSULTATION REPORT FOR: Dr. Hamm CHIEF COMPLAINT: Lower extremity pain. HISTORY OF PRESENT ILLNESS: Gauri is a 63-year-old female who suffers from leukemia who is being treated for symptomatic anemia. She has open wounds over her body. At home, she was receiving 50 mcg of fentanyl every 72 hours and approximately 60 mg of oxycodone during the daytime for breakthrough pain. She currently is receiving the 50 mcg of fentanyl but is only receiving the maximum of 40 mg a day of oxycodone. She states that she had a bad day today with pain. Dressing changes are painful. Rating pain level as a 7/10 visual analog scale (VAS). PHYSICAL EXAMINATION: Awake, alert, oriented. CARDIAC: S1, S2, normal rate and rhythm. RESPIRATORY: Lung sounds are clear and nonlabored. Lower extremities are covered with an NISHA bandage. She is able to move freely in bed. ASSESSMENT: Chronic pain secondary to open wounds and acute myelocytic leukemia. PLAN/RECOMMENDATIONS: Would be to increase oxycodone to a 10 mg dose every four hours as needed especially a half an hour prior to dressing changes. You may want to consider increasing fentanyl patch to 75 mcg. Due to her metabolic state, she may not be processing fentanyl patch well and may benefit from an oral long-acting pain medication, i.e. MS Contin 15 mg twice a day or oxycodone ER 15 mg twice a day. Thank you for allowing us to participate in the care of your patient.
[2018-03-25] MEDS: MORPHINE 15 MG SA TAB PO SCH (21:19)
[2018-03-25 22:00] VITALS: BP 157/78
[2018-03-26] MEDS: CHOLESTYRAMINE 4 GM PWD PKT PO SCH ×2 (04:55→17:41)
[2018-03-26] MEDS: oxyCODONE 5MG TAB PO PRN ×2 (04:56→13:21)
[2018-03-26 06:00] VITALS: BP 138/75
[2018-03-26] MEDS: LACTOBACILLUS ACIDOPHILUS CAP (BACID) PO SCH ×3 (09:25→20:49)
[2018-03-26] MEDS: TACROLIMUS 0.5 MG CAP PO SCH ×2 (09:26→20:50)
[2018-03-26] MEDS: methylPREDNISolone 4 MG TAB PO SCH (09:26)
[2018-03-26] MEDS: FOLIC ACID 1 MG TAB PO SCH (09:26)
[2018-03-26] MEDS: VITAMIN D 1,000 INTERNATIONAL UNITS TABLET PO SCH ×2 (09:26→09:38)
[2018-03-26] MEDS: PANTOPRAZOLE 40MG TAB (PROTONIX) PO SCH ×2 (09:27→20:49)
[2018-03-26] MEDS: CYANOCOBALAMIN 500 MCG TAB PO SCH (09:27)
[2018-03-26] MEDS: OMEGA-3 1000MG CAPSULE PO SCH (09:27)
[2018-03-26] MEDS: GABAPENTIN 100 MG CAP PO SCH ×3 (09:27→20:49)
[2018-03-26] MEDS: buPROPion (WELLBUTRIN SR) 100 MG SR TAB PO SCH ×2 (09:27→20:50)
[2018-03-26] MEDS: MORPHINE 15 MG SA TAB PO SCH ×2 (09:28→20:50)
[2018-03-26] MEDS: fentaNYL 75 MCG/HR PATCH TD SCH (09:30)
[2018-03-26] MEDS: METOPROLOL SUCC *XL* 25MG TAB (TopROL *XL*) PO SCH (09:32)
[2018-03-26 10:02] LABS: HEMATOCRIT 35.8 % (36.0-47.0); MEAN CORPUSCULAR HEMOGLOBIN 27.8 pg (27.0-33.0); MEAN CORPUSCULAR HGB CONC 30.7 g/dl (32.0-36.5); MEAN CORPUSCULAR VOLUME 90.4 fl (80.0-96.0); PLATELET COUNT, AUTOMATED 359 10^3/uL (150-450); RED BLOOD COUNT 3.96 10^6/uL (4.00-5.40); WHITE BLOOD COUNT 8.6 10^3/uL (4.0-10.0)
[2018-03-26 10:34] LABS: BLOOD UREA NITROGEN 15 MG/DL (7-18); CALCIUM LEVEL 8.5 MG/DL (8.8-10.2); CARBON DIOXIDE LEVEL 27 MEQ/L (21-32); CHLORIDE LEVEL 108 MEQ/L (98-107); GLOMERULAR FILTRATION RATE > 60.0 (>45); GLUCOSE, FASTING 69 MG/DL (70-100); SODIUM LEVEL 144 MEQ/L (136-145)
[2018-03-26] MEDS ORDERED: SENNA 8.6 MG TAB (SENOKOT) PO PRN (10:45)
--- NOTE | 2018-03-26 10:46 | IPNPDOC ---
Subjective Date Seen The patient was seen on 03/26/18. Subjective Chief Complaint/HPI ams General: Reports: Fatigue, Malaise; Denies: Chills, Night Sweats Pulmonary: Denies: Dyspnea, Cough Cardiovascular: Denies: Chest Pain, Palpitations Gastrointestinal: Reports: Constipation; Denies: Nausea, Vomiting, Abdominal Pain, Diarrhea, Melena, Hematochezia Musculoskeletal: Reports: Other Symptoms (b/l LE pain from chronic open wounds, seems more comfotrable today on exam) Neurological: Reports: Weakness Psych: Reports: Mood Normal, Depression Objective Physical Examination General Exam: Positive: Alert, Cooperative, Moderate Distress (from pain in b/l LE sores on legs, seems more comfortable today on exam) Eye Exam: Positive: Conjunctiva & lids normal ENT Exam: Positive: Mucous membr. moist/pink Neck Exam: Positive: Supple Chest Exam: Positive: Clear to auscultation, Diminished; Negative: Rales, Rhonchi, Wheezing Heart Exam: Positive: Rate Normal, Normal S1, Normal S2; Negative: Gallops, Murmurs Abdomen Exam: Positive: Normal bowel sounds, Soft; Negative: Tenderness, Hepatospenomegaly Extremity Exam: Positive: Other (multiple b/l LE open sores wrapped ); Negative: Clubbing, Cyanosis Neuro Exam: Positive: Normal Speech Psych Exam: Positive: Anxiety Assessment /Plan Assessment 1. Leukocytosis -resolved, holding antibiotic for now, patients urine is positive for ESBL but s he denies frequency of urination, blood in urine or pain with urination, given AML and GVHD will hold abx for now as do not want patient to develop antibiotic resistance faster than she needs to -blood culture negative after 72 hours -she continues to be afebrile -Infectious disease consulted, appreciate their help-no abx for now as stated above 2. Chronic wounds -Continue dressing changes and wound care -pain management consulted-have implemented their recommendations, patient appears somewhat more comfortable on exam, requested nursing staff not change dressings until she is given pain mediations at least 20-30 mins prior to change -will monitor for active infection, less likely so right now 3. Acute on chronic pain. -Continue current regimen 4. Debility -PFS consult placed, pt may likely need home services or possible assisted placement -Pt has been unable to care for self at home, not eating, not drinking well -blood bank attendant consult placed to make sure she is getting adequate nutritional needs-recommend Ensure TID -PT/OT ordered 5. H/O Acute myeloid leukemia (AML) status post stem cell transplantation in 2013 with chronic btfnw-ufssui-badu disease, with mostly skin manifestation -Patient follows with Dr. Miranda, [facility] oncology. -Patient receives apheresis treatments every 2 weeks, with next treatment to 03/31/18. Possible need for sooner treatment -Further management as per Oncology [facility] -Continue Tacrolimus -Patient remains on Medrol 4 mg by mouth daily 6. GERD -Continue Protonix. 7. Hypertension -stable -Continue Toprol-XL 25 mg by mouth daily with hold parameters. 8. Chronic anemia -H/H stable, s/p 2 units pRBC -iron studies demonstrate possibly secondary to anemia of chronic disease -Continue vitamin B12 supplements -Continue folic acid supplements 9. Depression -stable 10. Constipation -scheduling on bowel regime medications especially in light of pain medication use Plan/VTE VTE Prophylaxis Ordered?: Yes VS, [facility]O, [facility]/I[facility]O Vital Signs Date Time Temp Pulse Resp B/P (MAP) Pulse Ox O2 Delivery O2 Flow Rate FiO2 03/26/18 09:32 113 125/75 03/26/18 09:30 18 03/26/18 06:00 97.6 96 Room Air I&O- Last 24 Hours up to 6 AM 03/26/18 06:00 Intake Total 1200 ml Output Total 500 ml Balance 700 ml Laboratory Data 24H LABS Laboratory Tests 2 03/26/18 08:18: Nucleated Red Blood Cells % (auto) 0.3H, Anion Gap 9, Glomerular Filtration Rate > 60.0, Blood Urea Nitrogen 15, Creatinine 0.40L, Sodium Level 144, Potassium Level 4.0, Chloride Level 108H, Carbon Dioxide Level 27, Calcium Level 8.5L CBC/BMP Laboratory Tests 03/26/18 08:18 Red Blood Count 3.96 L, Mean Corpuscular Volume 90.4, Mean Corpuscular Hemoglobin 27.8, Mean Corpuscular Hemoglobin Concent 30.7 L, Red Cell Distribution Width 17.6 H, Calcium Level 8.5 L Microbiology Microbiology 03/22/18 Blood Culture - Preliminary, Resulted No Growth after 72 hours. All specime... 03/22/18 Blood Culture - Preliminary, Resulted No Growth after 72 hours. All specime... 03/22/18 Urine Culture - Final, Complete E.coli Esbl GME ATTESTATION GME ATTESTATION My faculty preceptor for this patient encounter was physically present during the encounter and was fully available. All aspects of the patient interview, examination, medical decision making process, and medical care plan development were reviewed and approved by the faculty preceptor. The faculty preceptor is aware and concurs with the plan as stated in the body of this note and will attest to such by his/her cosignature. HOWIE KERNS DO Mar 26, 2018 10:46
[2018-03-26] MEDS: MIRALAX *UNIT DOSE* 17GM PACKET PO SCH (11:30)
[2018-03-26 14:00] VITALS: BP 130/76
--- NOTE | 2018-03-26 15:12 | CR ---
DATE OF CONSULTATION: 03/26/2018 BRIEF CONSULTATION NOTE Patient seen at the request of the hospitalist service for replacement of patient's [id number]. HISTORY OF PRESENT ILLNESS: The patient is a 63-year-old white female with graft versus host disease who undergoes plasmapheresis and chemotherapy at [facility] every 2 weeks. The port is used for the pheresis. It occasionally does not withdraw or infuse and that is solved at [facility] with TPA infusion of the port. According to the nursing staff, it was recently tried to be used for infusion of blood. It was not successful. The patient does have intravenous (IV) access. 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 This is being treated by Dr. Herrera of the wound center. She is not currently on antibiotics. After a long discussion with the patient and careful consideration, I would not recommend replacing the port. In fact, I would recommend it being used for nothing other than her pheresis and chemotherapy. With her colonization, she is at risk for it to become infected with all the sequelae including endocarditis. The less that port is used the better it is, and should only be used for its designated purpose. If she does need IV access, a peripherally inserted central catheter (PICC) line can be placed.
[2018-03-26 22:00] VITALS: BP 144/86
[2018-03-27] MEDS: oxyCODONE 5MG TAB PO PRN ×5 (00:04→22:30)
[2018-03-27 05:32] LABS: HEMATOCRIT 35.4 % (36.0-47.0); HEMOGLOBIN 10.7 g/dl (12.0-15.5); MEAN CORPUSCULAR HEMOGLOBIN 27.9 pg (27.0-33.0); MEAN CORPUSCULAR HGB CONC 30.2 g/dl (32.0-36.5); MEAN CORPUSCULAR VOLUME 92.4 fl (80.0-96.0); PLATELET COUNT, AUTOMATED 315 10^3/uL (150-450); RED BLOOD COUNT 3.83 10^6/uL (4.00-5.40); WHITE BLOOD COUNT 8.2 10^3/uL (4.0-10.0)
[2018-03-27] MEDS: CHOLESTYRAMINE 4 GM PWD PKT PO SCH ×2 (05:32→16:51)
[2018-03-27 06:00] VITALS: BP 131/72
[2018-03-27 06:06] LABS: BLOOD UREA NITROGEN 19 MG/DL (7-18); CALCIUM LEVEL 8.1 MG/DL (8.8-10.2); CARBON DIOXIDE LEVEL 26 MEQ/L (21-32); CHLORIDE LEVEL 109 MEQ/L (98-107); CREATININE FOR GFR 0.53 MG/DL (0.55-1.30); GLOMERULAR FILTRATION RATE > 60.0 (>45); GLUCOSE, FASTING 79 MG/DL (70-100); POTASSIUM SERUM 4.3 MEQ/L (3.5-5.1); SODIUM LEVEL 142 MEQ/L (136-145)
[2018-03-27] MEDS: buPROPion (WELLBUTRIN SR) 100 MG SR TAB PO SCH ×2 (08:45→20:53)
[2018-03-27] MEDS: VITAMIN D 1,000 INTERNATIONAL UNITS TABLET PO SCH ×2 (08:45→08:46)
[2018-03-27] MEDS: LACTOBACILLUS ACIDOPHILUS CAP (BACID) PO SCH ×3 (08:46→20:53)
[2018-03-27] MEDS: methylPREDNISolone 4 MG TAB PO SCH (08:46)
[2018-03-27] MEDS: OMEGA-3 1000MG CAPSULE PO SCH (08:46)
[2018-03-27] MEDS: CYANOCOBALAMIN 500 MCG TAB PO SCH (08:47)
[2018-03-27] MEDS: MORPHINE 15 MG SA TAB PO SCH ×2 (08:47→20:54)
[2018-03-27] MEDS: TACROLIMUS 0.5 MG CAP PO SCH ×2 (08:47→20:53)
[2018-03-27] MEDS: GABAPENTIN 100 MG CAP PO SCH ×3 (08:48→20:53)
[2018-03-27] MEDS: FOLIC ACID 1 MG TAB PO SCH (08:48)
[2018-03-27] MEDS: MIRALAX *UNIT DOSE* 17GM PACKET PO SCH (08:48)
[2018-03-27] MEDS: PANTOPRAZOLE 40MG TAB (PROTONIX) PO SCH ×2 (08:48→20:53)
[2018-03-27] MEDS: METOPROLOL SUCC *XL* 25MG TAB (TopROL *XL*) PO SCH (08:50)
--- NOTE | 2018-03-27 10:24 | IPNPDOC ---
Date Seen The patient was seen on 03/27/18. Progress Note SUBJECTIVE: Patient tells me that she had intermittent pain overnight she got up to walk to the bathroom independently but had some pain doing that mostly in her bilateral legs associated with her wounds but otherwise she is feeling better she is awake alert oriented 3 denies fevers chills chest pain shortness of breath nausea vomiting or diarrhea she's having regular bowel movement with movi ng her bladder well OBJECTIVE PHYSICAL EXAMINATION: VITAL SIGNS: Please see below. GENERAL: Frail elderly female sleeping peacefully in bed but easily arousable to verbal stimuli she does not appear in acute distress superficial ulcer with swelling of the skin diffusely mood appears improved today HEENT: No changes from previous days exam cranial nerves II through XII appear grossly intact CARDIOVASCULAR: Is 1 S2 she is not tachycardic. RESPIRATORY: Clear to auscultation bilaterally. ABDOMINAL: Bowel sounds Present abdomen soft EXTREMITIES: Diffuse slowing skin no superficial ulcerations throughout dressings in the bilateral lower extremities are clean dry and intact LABORATORY DATA, IMAGING STUDIES, MICROBIOLOGY: Please see below. DVT prophylaxis ordered?: Will start Lovenox ASSESSMENT AND PLAN: This is a 63-year-old female with depression symptomatic anemia and failure to thrive at home. PROBLEMS: 1. Symptomatic anemia failure to thrive: With the multifactorial in nature she is certainly depressed and has exhibited such I agree with Dr. Linares psychiatry she is not a danger to herself and does not need inpatient mental health admission I think she would benefit from further outpatient behavioral following titration of medications however. She is status post 2 units of PRBCs her low TIBC and low iron are suggestive of iron deficiency her elevated ferritin and no rmal MCV somewhat suggestive of anemia of chronic disease not surprising given her chronic sjamc-bdpftm-gboa disease no evidence of active bleeding she is held her counts quite well following 2 units of PRBCs I'll provide her with ferrous sulfate. In regards to her chronic pain likely related to her superficial ulcers wound consult has been appreciated she normally follows with Dr. Siegel on the outpatient setting pain management has seen her already and address her pain she does appear more comfortable and suspected benefit from continued follow-up with him on the outpatient setting. PFS consult placed to see if we can mobilize any greater services for the patient at home PTOT eval's are in progress. She has been seen by packing tractor machine operator we are adding Ensure original 3 times a day with meal s. I did a lengthy conversation with the patient and her daughter that I'm optimistic about her condition improving with the aforementioned measures and her ability to return home however should Wednesday, she is not at that point I did recommend seeking assisted living versus longterm facility placement given the chronic nature to her condition in the progressive nature of it as well. 2. Fovzj-xpnxtx-hyfb disease: Patient is on methylprednisolone as well as tacrolimus daily as well as a pheresis and chemotherapy treatments to her Hhaayq-l-Jnwg spoken with Dr. morgan her long-term oncologist regarding her care she is in agreement with all of our plans of care thus far. 3. Acute on chronic pain: Or psychoses and chronic wounds continue with wound care as per Dr. Baker's recommendations continue with increase fentanyl patch gabapentin. Morphine sulfate oxycodone when necessary and bowel regimen 4. Depression: Psychiatry input appreciated the patient continued on trazodone bupropion and clonazepam as outlined above she'll require further outpatient behavioral health follow-up 5. Anemia: As outlined above will be multifactorial in nature anemia chronic disease and iron deficiency anemia she is being started on ferrous sulfate she is status post 2 units continue folic acid and B12 supplements 6. Hypertension: Controlled with metoprolol 7. Gastroesophageal reflux disease: She is continued on simethicone. Metoprolol and Mylanta as needed 8. Vitamin E deficiency: Continue supplementation 9. A symptom medic bacteriuria: ESBL in urine culture given her immunocompromise state there was some concern is whether or not we should treat that she did present with tachycardia leukocytosis and generalized feeling unwell, she has been seen by Dr. gaming of infectious disease who agrees no treatment is needed at this time I did consult appreciated 10. Acute myeloid leukemia: Status post dental transplant with palpitation mtjab-ewrgtm-xhbj disease please see above 11. Constipation: She is currently receiving increased doses of narcotics about regimen is provided to her DISPOSITION: Pending clinical improvement and PT OT clearance likely home tomorrow versus assisted living/longterm placement. VS, I&O, 24H, Fishbone Vital Signs/I&O Vital Signs Date Time Temp Pulse Resp B/P (MAP) Pulse Ox O2 Delivery O2 Flow Rate FiO2 03/27/18 09:36 18 03/27/18 08:50 97 139/84 03/27/18 06:00 97.6 95 Room Air I&O- Last 24 Hours up to 6 AM 03/27/18 06:00 Intake Total 1740 ml Output Total 600 ml Balance 1140 ml Laboratory Data 24H LABS Laboratory Tests 2 03/27/18 05:17: Nucleated Red Blood Cells % (auto) 0.0, Anion Gap 7L, Glomerular Filtration Rate > 60.0, Blood Urea Nitrogen 19H, Creatinine 0.53L, Sodium Level 142, Potassium Level 4.3, Chloride Level 109H, Carbon Dioxide Level 26, Calcium Level 8.1L CBC/BMP Laboratory Tests 03/27/18 05:17 Red Blood Count 3.83 L, Mean Corpuscular Volume 92.4, Mean Corpuscular Hemoglobin 27.9, Mean Corpuscular Hemoglobin Concent 30.2 L, Red Cell Distribution Width 17.8 H, Calcium Level 8.1 L Microbiology Microbiology 03/22/18 Blood Culture - Preliminary, Resulted No Growth after 72 hours. All specime... 03/22/18 Blood Culture - Preliminary, Resulted No Growth after 72 hours. All specime... 03/22/18 Urine Culture - Final, Complete E.coli Esbl CHAZ HERNANDEZ MD Mar 27, 2018 10:24
[2018-03-27 14:00] VITALS: BP 111/56
[2018-03-27] MEDS: FERROUS SULFATE 300MG/5ML UDC LIQUID PO SCH (14:50)
[2018-03-27] MEDS: ENOXAPARIN 30 MG/0.3 ML SYR (J1650) SC SCH (20:53)
[2018-03-27 22:00] VITALS: BP 133/62
[2018-03-28] MEDS: oxyCODONE 5MG TAB PO PRN ×3 (03:28→17:12)
[2018-03-28] MEDS: CHOLESTYRAMINE 4 GM PWD PKT PO SCH ×2 (05:22→16:21)
[2018-03-28 06:00] VITALS: BP 148/76
[2018-03-28 06:37] LABS: HEMATOCRIT 34.9 % (36.0-47.0); HEMOGLOBIN 10.8 g/dl (12.0-15.5); MEAN CORPUSCULAR HGB CONC 30.9 g/dl (32.0-36.5); MEAN CORPUSCULAR VOLUME 90.4 fl (80.0-96.0); PLATELET COUNT, AUTOMATED 338 10^3/uL (150-450); RED BLOOD COUNT 3.86 10^6/uL (4.00-5.40); WHITE BLOOD COUNT 7.9 10^3/uL (4.0-10.0)
[2018-03-28 07:37] LABS: BLOOD UREA NITROGEN 18 MG/DL (7-18); CALCIUM LEVEL 8.3 MG/DL (8.8-10.2); CARBON DIOXIDE LEVEL 26 MEQ/L (21-32); CHLORIDE LEVEL 105 MEQ/L (98-107); CREATININE FOR GFR 0.48 MG/DL (0.55-1.30); GLOMERULAR FILTRATION RATE > 60.0 (>45); GLUCOSE, FASTING 74 MG/DL (70-100); POTASSIUM SERUM 3.9 MEQ/L (3.5-5.1); SODIUM LEVEL 137 MEQ/L (136-145)
[2018-03-28] MEDS: OMEGA-3 1000MG CAPSULE PO SCH (08:29)
[2018-03-28] MEDS: buPROPion (WELLBUTRIN SR) 100 MG SR TAB PO SCH ×2 (08:29→22:23)
[2018-03-28] MEDS: FERROUS SULFATE 300MG/5ML UDC LIQUID PO SCH (08:29)
[2018-03-28] MEDS: PANTOPRAZOLE 40MG TAB (PROTONIX) PO SCH ×2 (08:30→22:22)
[2018-03-28] MEDS: LACTOBACILLUS ACIDOPHILUS CAP (BACID) PO SCH ×3 (08:30→22:21)
[2018-03-28] MEDS: TACROLIMUS 0.5 MG CAP PO SCH ×2 (08:30→22:22)
[2018-03-28] MEDS: GABAPENTIN 100 MG CAP PO SCH ×3 (08:30→22:22)
[2018-03-28] MEDS: methylPREDNISolone 4 MG TAB PO SCH (08:30)
[2018-03-28] MEDS: CYANOCOBALAMIN 500 MCG TAB PO SCH (08:30)
[2018-03-28] MEDS: FOLIC ACID 1 MG TAB PO SCH (08:30)
[2018-03-28] MEDS: VITAMIN D 1,000 INTERNATIONAL UNITS TABLET PO SCH ×2 (08:30→08:36)
[2018-03-28] MEDS: MIRALAX *UNIT DOSE* 17GM PACKET PO SCH (08:31)
[2018-03-28] MEDS: METOPROLOL SUCC *XL* 25MG TAB (TopROL *XL*) PO SCH (08:31)
[2018-03-28] MEDS: MORPHINE 15 MG SA TAB PO SCH ×2 (08:31→22:22)
[2018-03-28] MEDS: clonazePAM 1 MG TAB PO PRN (11:21)
--- NOTE | 2018-03-28 13:11 | IPNPDOC ---
Subjective Date Seen The patient was seen on 03/28/18. Subjective Chief Complaint/HPI AMS General: Reports: Fatigue; Denies: Chills Constitutional: Reports: Weakness Pulmonary: Denies: Dyspnea, Cough Cardiovascular: Denies: Chest Pain, Palpitations Gastrointestinal: Denies: Nausea, Vomiting, Abdominal Pain, Diarrhea, Constipation, Melena, Hematochezia Genitourinary: Denies: Dysuria Neurological: Reports: Weakness Psych: Reports: Anxiety, Depression Objective Physical Examination General Exam: Positive: Alert, Cooperative, Mild Distress Eye Exam: Positive: Conjunctiva & lids normal ENT Exam: Positive: Mucous membr. moist/pink Neck Exam: Positive: Supple Chest Exam: Positive: Clear to auscultation, Diminished; Negative: Rales, Rhonchi, Wheezing Heart Exam: Positive: Rate Normal, Normal S1, Normal S2; Negative: Gallops, Murmurs Abdomen Exam: Positive: Normal bowel sounds, Soft; Negative: Tenderness, Hepatospenomegaly Extremity Exam: Positive: Other (multiple b/l LE open sores wrapped ); Negative: Clubbing, Cyanosis Skin Exam: Positive: Other skin issue (b/l LE chronic skin lesions) Neuro Exam: Positive: Normal Speech Psych Exam: Positive: Anxiety Assessment /Plan Assessment 1. Leukocytosis -resolved, holding antibiotic for now, patients urine is positive for ESBL but she denies frequency of urination, blood in urine or pain with urination, given AML and GVHD will hold abx for now as do not want patient to develop antibiotic resistance faster than she needs to -blood cultures negative after 5 days -she continues to be afebrile -Infectious disease consulted, appreciate their help-no abx for now as stated above 2. Chronic wounds -Continue dressing changes and wound care -pain management consulted-have implemented their recommendations, patient appears comfortable on exam, requested nursing staff not change dressings until she is given pain mediations at least 20-30 mins prior to change -will monitor for active infection, less likely so right now -Continue bowel regime 3. Acute on chronic pain. -Continue current regimen -pain mgmt has evaluated the patient, their recommendations have been implemented 4. Debility -PFS consult placed, pt may likely need home services or possible group home placement -ARU screen pending -Pt has been unable to care for self at home, not eating, not drinking well -manager internet consult placed to make sure she is getting adequate nutritional needs-c/w Ensure TID -PT/OT ordered 5. H/O Acute myeloid leukemia (AML) status post stem cell transplantation in 2013 with chronic zhvzv-ssislb-gpsn disease, with mostly skin manifestation -Patient follows with Dr. Morgan, [facility]ology. -Pt. receives a pheresis and chemotherapy treatments to her Vqqqhb-l-Vvdk spoken with Dr. morgan her long-term oncologist regarding her care she is in agreement with all of our plans of care thus far. -Patient receives apheresis treatments every 2 weeks, with next treatment to 03/31/18. Possible need for sooner treatment -Further management as per Oncology [facility] -Continue Tacrolimus -Patient remains on Medrol 4 mg by mouth daily -Infuse aport has been evaluated by Dr. Priest, per note limited use only for now--for chemotherapy and pheresis, high infection risk. Appreciate his help. 6. GERD -Continue Protonix. 7. Hypertension -stable -Continue Toprol-XL 25 mg by mouth daily with hold parameters. 8. Chronic anemia -H/H stable, s/p 2 units pRBC -iron studies demonstrate possibly secondary to anemia of chronic disease -Continue vitamin B12 supplements -Continue folic acid supplements 9. Depression -stable 10. Constipation -c/w scheduled bowel regime medications especially in light of pain medication use Plan/VTE VTE Prophylaxis Ordered?: Yes VS, I&O, 24H, Fishbone Vital Signs/I&O Vital Signs Date Time Temp Pulse Resp B/P (MAP) Pulse Ox O2 Delivery O2 Flow Rate FiO2 03/28/18 12:10 16 03/28/18 08:31 90 148/76 03/28/18 06:00 98.8 99 Room Air I&O- Last 24 Hours up to 6 AM 03/28/18 06:00 Intake Total 1820 ml Output Total 0 ml Balance 1820 ml Laboratory Data 24H LABS Laboratory Tests 2 03/28/18 06:19: Nucleated Red Blood Cells % (auto) 0.4H, Anion Gap 6L, Glomerular Filtration Rate > 60.0, Blood Urea Nitrogen 18, Creatinine 0.48L, Sodium Level 137, Potassium Level 3.9, Chloride Level 105, Carbon Dioxide Level 26, Calcium Level 8.3L CBC/BMP Laboratory Tests 03/28/18 06:19 Red Blood Count 3.86 L, Mean Corpuscular Volume 90.4, Mean Corpuscular Hemoglobin 28.0, Mean Corpuscular Hemoglobin Concent 30.9 L, Red Cell Distribution Width 17.4 H, Calcium Level 8.3 L Microbiology Microbiology 03/22/18 Blood Culture - Final, Complete NO GROWTH AFTER 5 DAYS 03/22/18 Blood Culture - Final, Complete NO GROWTH AFTER 5 DAYS 03/22/18 Urine Culture - Final, Complete E.coli Esbl GME ATTESTATION GME ATTESTATION My faculty preceptor for this patient encounter was physically present during the encounter and was fully available. All aspects of the patient interview, examination, medical decision making process, and medical care plan development were reviewed and approved by the faculty preceptor. The faculty preceptor is aware and concurs with the plan as stated in the body of this note and will attest to such by his/her cosignature. HOWIE KERNS DO Mar 28, 2018 13:10
[2018-03-28 14:00] VITALS: BP 136/74
[2018-03-28] MEDS ORDERED: oxyCODONE 5MG TAB PO STA (14:17)
[2018-03-28 22:00] VITALS: BP 127/71
[2018-03-28] MEDS: ENOXAPARIN 30 MG/0.3 ML SYR (J1650) SC SCH (22:21)
[2018-03-29] MEDS: CHOLESTYRAMINE 4 GM PWD PKT PO SCH ×2 (04:35→18:08)
[2018-03-29] MEDS: oxyCODONE 5MG TAB PO PRN ×4 (04:54→20:39)
[2018-03-29 05:43] LABS: HEMOGLOBIN 10.4 g/dl (12.0-15.5); MEAN CORPUSCULAR HEMOGLOBIN 27.3 pg (27.0-33.0); MEAN CORPUSCULAR HGB CONC 30.6 g/dl (32.0-36.5); MEAN CORPUSCULAR VOLUME 89.2 fl (80.0-96.0); PLATELET COUNT, AUTOMATED 382 10^3/uL (150-450); RED BLOOD COUNT 3.81 10^6/uL (4.00-5.40); WHITE BLOOD COUNT 8.7 10^3/uL (4.0-10.0)
[2018-03-29 06:12] LABS: BLOOD UREA NITROGEN 13 MG/DL (7-18); CALCIUM LEVEL 8.4 MG/DL (8.8-10.2); CARBON DIOXIDE LEVEL 27 MEQ/L (21-32); CHLORIDE LEVEL 106 MEQ/L (98-107); CREATININE FOR GFR 0.56 MG/DL (0.55-1.30); GLOMERULAR FILTRATION RATE > 60.0 (>45); GLUCOSE, FASTING 96 MG/DL (70-100); SODIUM LEVEL 141 MEQ/L (136-145)
[2018-03-29] MEDS ORDERED: DIAPER RELIEF PASTE (DESITIN) 60GM TOP SCH (09:00)
[2018-03-29 09:52] VITALS: BP 130/94
[2018-03-29] MEDS: fentaNYL 75 MCG/HR PATCH TD SCH (10:03)
[2018-03-29] MEDS: METOPROLOL SUCC *XL* 25MG TAB (TopROL *XL*) PO SCH (10:03)
[2018-03-29] MEDS: MIRALAX *UNIT DOSE* 17GM PACKET PO SCH (10:03)
[2018-03-29] MEDS: FERROUS SULFATE 300MG/5ML UDC LIQUID PO SCH (10:03)
[2018-03-29] MEDS: OMEGA-3 1000MG CAPSULE PO SCH (10:04)
[2018-03-29] MEDS: VITAMIN D 1,000 INTERNATIONAL UNITS TABLET PO SCH ×2 (10:04)
[2018-03-29] MEDS: CYANOCOBALAMIN 500 MCG TAB PO SCH (10:04)
[2018-03-29] MEDS: methylPREDNISolone 4 MG TAB PO SCH (10:05)
[2018-03-29] MEDS: buPROPion (WELLBUTRIN SR) 100 MG SR TAB PO SCH ×2 (10:05→21:59)
[2018-03-29] MEDS: LACTOBACILLUS ACIDOPHILUS CAP (BACID) PO SCH ×3 (10:05→21:59)
[2018-03-29] MEDS: TACROLIMUS 0.5 MG CAP PO SCH ×2 (10:05→22:00)
[2018-03-29] MEDS: GABAPENTIN 100 MG CAP PO SCH ×3 (10:05→21:59)
[2018-03-29] MEDS: FOLIC ACID 1 MG TAB PO SCH (10:06)
[2018-03-29] MEDS: PANTOPRAZOLE 40MG TAB (PROTONIX) PO SCH ×2 (10:06→21:59)
[2018-03-29] MEDS: MORPHINE 15 MG SA TAB PO SCH ×2 (10:06→21:59)
[2018-03-29] MEDS: FENTANYL REMOVAL DOCUMENTATION MISC XX SCH (10:14)
[2018-03-29] MEDS ORDERED: MORPHINE 4 MG/ML 1ML VIAL/SYRINGE (J2270) IV ONE (11:45)
--- NOTE | 2018-03-29 12:53 | IPNPDOC ---
Subjective Date Seen The patient was seen on 03/29/18. 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 moist/pink Neck Exam: Positive: Supple Chest Exam: Positive: Clear to auscultation, Diminished Heart Exam: Positive: Rate Normal, Normal S1, Normal S2 Abdomen Exam: Positive: Normal bowel sounds, Soft Extremity Exam: Positive: Other Skin Exam: Positive: Other skin issue Neuro Exam: Positive: Normal Speech Psych Exam: Positive: Anxiety Assessment /Plan Assessment 1. Leukocytosis -resolved, holding antibiotic for now, patients urine is positive for ESBL but she denies frequency of urination, blood in urine or pain with urination, given AML and GVHD will hold abx for now as do not want patient to develop antibiotic resistance faster than she needs to -blood cultures negative after 5 days -she continues to be afebrile -Infectious disease consulted, appreciate their help-no abx for now as stated above 2. Chronic wounds -Continue dressing changes and wound care-wound consult telemedicine occurring today with Dr. Herrera -pain management consulted-have implemented their recommendations, patient appears comfortable on exam, requested nursing staff not change dressings until she is given pain mediations at least 20-30 mins prior to change -will monitor for active infection, less likely so right now -Continue bowel regime 3. Acute on chronic pain. -Continue current regimen -pain mgmt has evaluated the patient, their recommendations have been implemented 4. Debility -PFS consult placed, pt may likely need home services or possible half-way placement -ARU screen pending -Pt has been unable to care for self at home, not eating, not drinking well -sexual assault social worker consult placed to make sure she is getting adequate nutritional needs-c/w Ensure TID -PT/OT ordered 5. H/O Acute myeloid leukemia (AML) status post stem cell transplantation in 2012 with chronic ibnlc-ytsuvq-cakr disease, with mostly skin manifestation -Patient follows with Dr. Morgan, [facility] oncology. -Pt. receives a pheresis and chemotherapy treatments to her Kgxiva-i-Flbx spoken with Dr. morgan her long-term oncologist regarding her care she is in agreement with all of our plans of care thus far. -Patient receives apheresis treatments every 2 weeks, with next treatment to 03/31/18. Possible need for sooner treatment -Further management as per Oncology [facility] -Continue Tacrolimus -Patient remains on Medrol 4 mg by mouth daily -Infuse aport has been evaluated by Dr. Priest, per note limited use only for now--for chemotherapy and pheresis, high infection risk. Appreciate his help. 6. GERD -Continue Protonix. 7. Hypertension -stable -Continue Toprol-XL 25 mg by mouth daily with hold parameters. 8. Chronic anemia -H/H stable again today, s/p 2 units pRBC -iron studies demonstrate possibly secondary to anemia of chronic disease -Continue vitamin B12 supplements -Continue folic acid supplements 9. Depression -stable 10. Constipation -c/w scheduled bowel regime medications especially in light of pain medication use Plan/VTE VTE Prophylaxis Ordered?: Yes VS, I&O, 24H, Fishbone Vital Signs/I&O Vital Signs Date Time Temp Pulse Resp B/P (MAP) Pulse Ox O2 Delivery O2 Flow Rate FiO2 03/29/18 12:18 20 03/29/18 10:03 98 130/94 03/29/18 09:52 98.7 99 Room Air I&O- Last 24 Hours up to 6 AM 03/29/18 05:59 Intake Total 320 ml Output Total 0 ml Balance 320 ml Laboratory Data 24H LABS Laboratory Tests 2 03/29/18 05:22: Nucleated Red Blood Cells % (auto) 0.7H, Anion Gap 8, Glomerular Filtration Rate > 60.0, Blood Urea Nitrogen 13, Creatinine 0.56, Sodium Level 141, Potassium Level 4.0, Chloride Level 106, Carbon Dioxide Level 27, Calcium Level 8.4L CBC/BMP Laboratory Tests 03/29/18 05:22 Red Blood Count 3.81 L, Mean Corpuscular Volume 89.2, Mean Corpuscular Hemoglobin 27.3, Mean Corpuscular Hemoglobin Concent 30.6 L, Red Cell Distribution Width 17.3 H, Calcium Level 8.4 L Microbiology Microbiology 03/22/18 Blood Culture - Final, Complete NO GROWTH AFTER 5 DAYS 03/22/18 Blood Culture - Final, Complete NO GROWTH AFTER 5 DAYS 03/22/18 Urine Culture - Final, Complete E.coli Esbl GME ATTESTATION GME ATTESTATION My faculty preceptor for this patient encounter was physically present during the encounter and was fully available. All aspects of the patient interview, examination, medical decision making process, and medical care plan development were reviewed and approved by the faculty preceptor. The faculty preceptor is aware and concurs with the plan as stated in the body of this note and will attest to such by his/her cosignature. HOWIE KERNS DO Mar 29, 2018 12:53
[2018-03-29] MEDS: clonazePAM 1 MG TAB PO PRN (13:02)
[2018-03-29 14:00] VITALS: BP 131/76
[2018-03-29 22:00] VITALS: BP 110/62
[2018-03-29] MEDS: ENOXAPARIN 30 MG/0.3 ML SYR (J1650) SC SCH (22:01)
[2018-03-29] MEDS: EUCERIN 120GM CREAM TOP SCH (22:01)
[2018-03-30] MEDS: oxyCODONE 5MG TAB PO PRN ×3 (03:34→18:32)
[2018-03-30] MEDS: clonazePAM 1 MG TAB PO PRN (05:25)
[2018-03-30] MEDS: CHOLESTYRAMINE 4 GM PWD PKT PO SCH ×2 (05:25→16:22)
[2018-03-30 06:00] VITALS: BP 147/60
[2018-03-30 06:32] LABS: HEMATOCRIT 34.3 % (36.0-47.0); HEMOGLOBIN 10.5 g/dl (12.0-15.5); MEAN CORPUSCULAR HEMOGLOBIN 27.5 pg (27.0-33.0); MEAN CORPUSCULAR HGB CONC 30.6 g/dl (32.0-36.5); MEAN CORPUSCULAR VOLUME 89.8 fl (80.0-96.0); PLATELET COUNT, AUTOMATED 370 10^3/uL (150-450); RED BLOOD COUNT 3.82 10^6/uL (4.00-5.40); WHITE BLOOD COUNT 11.6 10^3/uL (4.0-10.0)
[2018-03-30 07:07] LABS: BLOOD UREA NITROGEN 23 MG/DL (7-18); CALCIUM LEVEL 8.6 MG/DL (8.8-10.2); CARBON DIOXIDE LEVEL 29 MEQ/L (21-32); CHLORIDE LEVEL 104 MEQ/L (98-107); GLOMERULAR FILTRATION RATE > 60.0 (>45); GLUCOSE, FASTING 80 MG/DL (70-100); POTASSIUM SERUM 4.1 MEQ/L (3.5-5.1); SODIUM LEVEL 139 MEQ/L (136-145)
[2018-03-30] MEDS: FERROUS SULFATE 300MG/5ML UDC LIQUID PO SCH (09:41)
[2018-03-30] MEDS: METOPROLOL SUCC *XL* 25MG TAB (TopROL *XL*) PO SCH (09:42)
[2018-03-30] MEDS: methylPREDNISolone 4 MG TAB PO SCH (09:42)
[2018-03-30] MEDS: VITAMIN D 1,000 INTERNATIONAL UNITS TABLET PO SCH ×2 (09:42)
[2018-03-30] MEDS: LACTOBACILLUS ACIDOPHILUS CAP (BACID) PO SCH ×3 (09:42→22:32)
[2018-03-30] MEDS: CYANOCOBALAMIN 500 MCG TAB PO SCH (09:43)
[2018-03-30] MEDS: GABAPENTIN 100 MG CAP PO SCH ×3 (09:43→22:34)
[2018-03-30] MEDS: MORPHINE 15 MG SA TAB PO SCH ×2 (09:43→22:33)
[2018-03-30] MEDS: FOLIC ACID 1 MG TAB PO SCH (09:43)
[2018-03-30] MEDS: PANTOPRAZOLE 40MG TAB (PROTONIX) PO SCH ×2 (09:43→22:32)
[2018-03-30] MEDS: OMEGA-3 1000MG CAPSULE PO SCH (09:44)
[2018-03-30] MEDS: EUCERIN 120GM CREAM TOP SCH ×2 (09:44→22:34)
[2018-03-30] MEDS: TACROLIMUS 0.5 MG CAP PO SCH ×2 (09:44→22:32)
[2018-03-30] MEDS: buPROPion (WELLBUTRIN SR) 100 MG SR TAB PO SCH ×2 (09:44→22:32)
[2018-03-30] MEDS: MIRALAX *UNIT DOSE* 17GM PACKET PO SCH (09:45)
--- NOTE | 2018-03-30 10:48 | IPNPDOC ---
Subjective Date Seen The patient was seen on 03/30/18. Subjective Chief Complaint/HPI ams General: Reports: ROS Unobtainable (patient is sleeping on exam, arouses easily to voice but then goes back to sleep ) Objective Physical Examination General Exam: Positive: No Acute Distress ENT Exam: Positive: Mucous membr. moist/pink Neck Exam: Positive: Supple Chest Exam: Positive: Clear to auscultation, Diminished Heart Exam: Positive: Rate Normal, Normal S1, Normal S2 Abdomen Exam: Positive: Normal bowel sounds, Soft Extremity Exam: Positive: Other Skin Exam: Positive: Other skin issue Psych Exam: Positive: Other (sleeping comfortably on exam, no pain) Assessment /Plan Assessment 1. Leukocytosis -minimal elevation today, holding antibiotic for now, patients urine is positive for ESBL but she denied frequency of urination, blood in urine or pain with urination all along , given AML and GVHD will hold abx for now as do not want patient to develop antibiotic resistance faster than she needs to -blood cultures negative after 5 days -she continues to be afebrile -Infectious disease consulted, appreciate their help-no abx for now as stated above 2. Chronic wounds -Continue dressing changes and wound care-wound consult telemedicine with Dr. Mu garzon-appreciate his help -pain management consulted-have implemented their recommendations, patient appears comfortable on exam and is sleeping, requested nursing staff not change dressings until she is given pain mediations at least 20-30 mins prior to change -have been monitoring for active infection, less likely so right now -Continue bowel regime 3. Acute on chronic pain. -Continue current regimen -pain mgmt has evaluated the patient, their recommendations have been implemented 4. Debility -PFS consult placed, pt may likely need home services or possible detention placement -ARU screen pending-patient's sister was at bedside and extensive discussion about goals of care have occurred, the sister agrees she would do better in a rehab facility, will make ALC status today -Pt has been unable to care for self at home, not eating, not drinking well -insolvency practitioner consult placed to make sure she is getting adequate nutritional needs-c/w Ensure TID -PT/OT ordered but patient refusing to work with them 5. H/O Acute myeloid leukemia (AML) status post stem cell transplantation in 2012 with chronic gxljp-jicxxd-wrhf disease, with mostly skin manifestation -Patient follows with Dr. Morgan, [facility] oncology. -Pt. receives a pheresis and chemotherapy treatments to her Axmwue-z-Rwlv spoken with Dr. morgan her long-term oncologist regarding her care she is in agreement with all of our plans of care thus far. -Patient receives apheresis treatments every 2 weeks, with next treatment to 03/31/18. Possible need for sooner treatment -Further management as per Oncology [facility] -Continue Tacrolimus -Patient remains on Medrol 4 mg by mouth daily -Infuse aport has been evaluated by Dr. Priest, per note limited use only for now--for chemotherapy and pheresis, high infection risk. Appreciate his help. 6. GERD -Continue Protonix. 7. Hypertension -stable -Continue Toprol-XL 25 mg by mouth daily with hold parameters. 8. Chronic anemia -H/H stable again today, s/p 2 units pRBC -iron studies demonstrate possibly secondary to anemia of chronic disease -Continue vitamin B12 supplements -Continue folic acid supplements 9. Depression -stable 10. Constipation -c/w scheduled bowel regime medications especially in light of pain medication use Plan/VTE VTE Prophylaxis Ordered?: Yes VS, I&O, 24H, Fishbone Vital Signs/I&O Vital Signs Date Time Temp Pulse Resp B/P (MAP) Pulse Ox O2 Delivery O2 Flow Rate FiO2 03/30/18 09:43 20 03/30/18 09:42 100 147/60 03/30/18 06:00 98.2 95 Room Air I&O- Last 24 Hours up to 6 AM 03/30/18 06:00 Intake Total 1050 ml Output Total 976 ml Balance 74 ml Laboratory Data 24H LABS Laboratory Tests 2 03/30/18 05:30: Nucleated Red Blood Cells % (auto) 0.3H, Anion Gap 6L, Glomerular Filtration Rate > 60.0, Blood Urea Nitrogen 23#H, Creatinine 0.60, Sodium Level 139, Potassium Level 4.1, Chloride Level 104, Carbon Dioxide Level 29, Calcium Level 8.6L CBC/BMP Laboratory Tests 03/30/18 05:30 Red Blood Count 3.82 L, Mean Corpuscular Volume 89.8, Mean Corpuscular Hemoglobin 27.5, Mean Corpuscular Hemoglobin Concent 30.6 L, Red Cell Distribution Width 17.2 H, Calcium Level 8.6 L Microbiology Microbiology 03/22/18 Blood Culture - Final, Complete NO GROWTH AFTER 5 DAYS 03/22/18 Blood Culture - Final, Complete NO GROWTH AFTER 5 DAYS 03/22/18 Urine Culture - Final, Complete E.coli Esbl GME ATTESTATION GME ATTESTATION My faculty preceptor for this patient encounter was physically present during the encounter and was fully available. All aspects of the patient interview, e xamination, medical decision making process, and medical care plan development were reviewed and approved by the faculty preceptor. The faculty preceptor is aware and concurs with the plan as stated in the body of this note and will attest to such by his/her cosignature. ATTENDING NOTE Spoke to pharmacy regarding ongoing home chemo medication prescribed by Dr. Miranda ([facility]). Ok for patient to resume home dose. Attending Note: I have independently examined this patient and all aspects of the exam and treatment decisions have been discussed with the resident/student. An attending physician from the medical staff will continue to follow this patient through discharge. HOWIE KERNS DO Mar 30, 2018 10:48 JAJA SALGADO DO Mar 30, 2018 11:44
[2018-03-30] MEDS: IMBRUVICA 140 MG PO SCH (16:22)
[2018-03-30 22:00] VITALS: BP 148/71
[2018-03-30] MEDS: ENOXAPARIN 30 MG/0.3 ML SYR (J1650) SC SCH (22:33)
[2018-03-31] MEDS: CHOLESTYRAMINE 4 GM PWD PKT PO SCH ×2 (05:06→18:09)
[2018-03-31] MEDS: oxyCODONE 5MG TAB PO PRN ×2 (05:07→14:29)
[2018-03-31 06:00] VITALS: BP 119/69
[2018-03-31 07:22] LABS: HEMATOCRIT 33.3 % (36.0-47.0); HEMOGLOBIN 10.2 g/dl (12.0-15.5); MEAN CORPUSCULAR HGB CONC 30.6 g/dl (32.0-36.5); MEAN CORPUSCULAR VOLUME 91.5 fl (80.0-96.0); PLATELET COUNT, AUTOMATED 387 10^3/uL (150-450); RED BLOOD COUNT 3.64 10^6/uL (4.00-5.40)
[2018-03-31 07:48] LABS: BLOOD UREA NITROGEN 23 MG/DL (7-18); CALCIUM LEVEL 8.3 MG/DL (8.8-10.2); CARBON DIOXIDE LEVEL 28 MEQ/L (21-32); CHLORIDE LEVEL 107 MEQ/L (98-107); CREATININE FOR GFR 0.55 MG/DL (0.55-1.30); GLOMERULAR FILTRATION RATE > 60.0 (>45); GLUCOSE, FASTING 74 MG/DL (70-100); SODIUM LEVEL 141 MEQ/L (136-145)
[2018-03-31] MEDS: VITAMIN D 1,000 INTERNATIONAL UNITS TABLET PO SCH ×2 (09:20)
[2018-03-31] MEDS: FERROUS SULFATE 300MG/5ML UDC LIQUID PO SCH (09:20)
[2018-03-31] MEDS: MIRALAX *UNIT DOSE* 17GM PACKET PO SCH (09:20)
[2018-03-31] MEDS: GABAPENTIN 100 MG CAP PO SCH ×3 (09:21→20:46)
[2018-03-31] MEDS: FOLIC ACID 1 MG TAB PO SCH (09:21)
[2018-03-31] MEDS: MORPHINE 15 MG SA TAB PO SCH ×2 (09:21→20:46)
[2018-03-31] MEDS: PANTOPRAZOLE 40MG TAB (PROTONIX) PO SCH ×2 (09:21→20:46)
[2018-03-31] MEDS: OMEGA-3 1000MG CAPSULE PO SCH (09:22)
[2018-03-31] MEDS: TACROLIMUS 0.5 MG CAP PO SCH ×2 (09:22→20:45)
[2018-03-31] MEDS: CYANOCOBALAMIN 500 MCG TAB PO SCH (09:22)
[2018-03-31] MEDS: LACTOBACILLUS ACIDOPHILUS CAP (BACID) PO SCH ×3 (09:22→20:46)
[2018-03-31] MEDS: methylPREDNISolone 4 MG TAB PO SCH (09:22)
[2018-03-31] MEDS: METOPROLOL SUCC *XL* 25MG TAB (TopROL *XL*) PO SCH (09:22)
[2018-03-31] MEDS: buPROPion (WELLBUTRIN SR) 100 MG SR TAB PO SCH ×2 (09:23→20:45)
[2018-03-31] MEDS: EUCERIN 120GM CREAM TOP SCH ×2 (09:23→20:47)
[2018-03-31] MEDS: IMBRUVICA 140 MG PO SCH (09:23)
[2018-03-31] MEDS: DIAPER RELIEF PASTE (DESITIN) 60GM TOP SCH (09:23)
[2018-03-31] MEDS ORDERED: MORPHINE 4 MG/ML 1ML VIAL/SYRINGE (J2270) IV ONE (15:30)
[2018-03-31] MEDS: MORPHINE 4 MG/ML 1ML VIAL/SYRINGE (J2270) IV PRN (17:04)
[2018-03-31] MEDS: clonazePAM 1 MG TAB PO PRN (17:04)
[2018-03-31] MEDS: ENOXAPARIN 30 MG/0.3 ML SYR (J1650) SC SCH (20:45)
[2018-04-01] MEDS: CHOLESTYRAMINE 4 GM PWD PKT PO SCH ×2 (05:28→17:48)
[2018-04-01] MEDS: oxyCODONE 5MG TAB PO PRN ×3 (05:29→17:49)
[2018-04-01 06:00] VITALS: BP 117/56
[2018-04-01 06:38] LABS: HEMATOCRIT 35.2 % (36.0-47.0); HEMOGLOBIN 10.6 g/dl (12.0-15.5); MEAN CORPUSCULAR HEMOGLOBIN 27.3 pg (27.0-33.0); MEAN CORPUSCULAR HGB CONC 30.1 g/dl (32.0-36.5); MEAN CORPUSCULAR VOLUME 90.7 fl (80.0-96.0); PLATELET COUNT, AUTOMATED 406 10^3/uL (150-450); RED BLOOD COUNT 3.88 10^6/uL (4.00-5.40); WHITE BLOOD COUNT 13.2 10^3/uL (4.0-10.0)
[2018-04-01 06:57] LABS: BLOOD UREA NITROGEN 19 MG/DL (7-18); CALCIUM LEVEL 8.5 MG/DL (8.8-10.2); CARBON DIOXIDE LEVEL 30 MEQ/L (21-32); CHLORIDE LEVEL 106 MEQ/L (98-107); CREATININE FOR GFR 0.52 MG/DL (0.55-1.30); GLOMERULAR FILTRATION RATE > 60.0 (>45); GLUCOSE, FASTING 95 MG/DL (70-100); POTASSIUM SERUM 3.9 MEQ/L (3.5-5.1); SODIUM LEVEL 141 MEQ/L (136-145)
[2018-04-01] MEDS: MIRALAX *UNIT DOSE* 17GM PACKET PO SCH ×2 (09:00→10:21)
[2018-04-01] MEDS: TACROLIMUS 0.5 MG CAP PO SCH ×2 (10:20→22:35)
[2018-04-01] MEDS: GABAPENTIN 100 MG CAP PO SCH ×3 (10:20→22:36)
[2018-04-01] MEDS: OMEGA-3 1000MG CAPSULE PO SCH (10:20)
[2018-04-01] MEDS: PANTOPRAZOLE 40MG TAB (PROTONIX) PO SCH ×2 (10:21→22:35)
[2018-04-01] MEDS: CYANOCOBALAMIN 500 MCG TAB PO SCH (10:21)
[2018-04-01] MEDS: LACTOBACILLUS ACIDOPHILUS CAP (BACID) PO SCH ×3 (10:22→22:34)
[2018-04-01] MEDS: METOPROLOL SUCC *XL* 25MG TAB (TopROL *XL*) PO SCH (10:22)
[2018-04-01] MEDS: buPROPion (WELLBUTRIN SR) 100 MG SR TAB PO SCH ×2 (10:22→22:34)
[2018-04-01] MEDS: FERROUS SULFATE 300MG/5ML UDC LIQUID PO SCH (10:23)
[2018-04-01] MEDS: methylPREDNISolone 4 MG TAB PO SCH (10:23)
[2018-04-01] MEDS: FOLIC ACID 1 MG TAB PO SCH (10:23)
[2018-04-01] MEDS: MORPHINE 15 MG SA TAB PO SCH ×2 (10:23→22:34)
[2018-04-01] MEDS: IMBRUVICA 140 MG PO SCH (10:24)
[2018-04-01] MEDS: fentaNYL 75 MCG/HR PATCH TD SCH (10:24)
[2018-04-01] MEDS: EUCERIN 120GM CREAM TOP SCH ×2 (10:25→22:35)
[2018-04-01] MEDS: FENTANYL REMOVAL DOCUMENTATION MISC XX SCH (10:44)
[2018-04-01] MEDS: VITAMIN D 1,000 INTERNATIONAL UNITS TABLET PO SCH ×2 (11:27)
[2018-04-01] MEDS: ENOXAPARIN 30 MG/0.3 ML SYR (J1650) SC SCH (22:35)
[2018-04-02] MEDS: oxyCODONE 5MG TAB PO PRN ×3 (01:45→14:23)
[2018-04-02] MEDS: CHOLESTYRAMINE 4 GM PWD PKT PO SCH ×2 (05:43→19:14)
[2018-04-02 06:00] VITALS: BP 116/69
[2018-04-02 06:57] LABS: HEMOGLOBIN 10.2 g/dl (12.0-15.5); MEAN CORPUSCULAR HEMOGLOBIN 27.7 pg (27.0-33.0); MEAN CORPUSCULAR VOLUME 92.4 fl (80.0-96.0); PLATELET COUNT, AUTOMATED 383 10^3/uL (150-450); RED BLOOD COUNT 3.68 10^6/uL (4.00-5.40); WHITE BLOOD COUNT 14.7 10^3/uL (4.0-10.0)
[2018-04-02 07:17] LABS: BLOOD UREA NITROGEN 20 MG/DL (7-18); CALCIUM LEVEL 8.3 MG/DL (8.8-10.2); CARBON DIOXIDE LEVEL 26 MEQ/L (21-32); CHLORIDE LEVEL 108 MEQ/L (98-107); CREATININE FOR GFR 0.51 MG/DL (0.55-1.30); GLOMERULAR FILTRATION RATE > 60.0 (>45); GLUCOSE, FASTING 86 MG/DL (70-100); POTASSIUM SERUM 3.7 MEQ/L (3.5-5.1); SODIUM LEVEL 141 MEQ/L (136-145)
[2018-04-02] MEDS: GABAPENTIN 100 MG CAP PO SCH ×3 (10:46→22:22)
[2018-04-02] MEDS: buPROPion (WELLBUTRIN SR) 100 MG SR TAB PO SCH ×2 (10:46→22:22)
[2018-04-02] MEDS: OMEGA-3 1000MG CAPSULE PO SCH (10:47)
[2018-04-02] MEDS: CYANOCOBALAMIN 500 MCG TAB PO SCH (10:47)
[2018-04-02] MEDS: LACTOBACILLUS ACIDOPHILUS CAP (BACID) PO SCH ×3 (10:47→22:22)
[2018-04-02] MEDS: TACROLIMUS 0.5 MG CAP PO SCH ×2 (10:47→22:21)
[2018-04-02] MEDS: methylPREDNISolone 4 MG TAB PO SCH (10:48)
[2018-04-02] MEDS: FOLIC ACID 1 MG TAB PO SCH (10:49)
[2018-04-02] MEDS: PANTOPRAZOLE 40MG TAB (PROTONIX) PO SCH ×2 (10:49→22:22)
[2018-04-02] MEDS: VITAMIN D 1,000 INTERNATIONAL UNITS TABLET PO SCH ×2 (10:49→10:50)
[2018-04-02] MEDS: FERROUS SULFATE 300MG/5ML UDC LIQUID PO SCH (10:49)
[2018-04-02] MEDS: METOPROLOL SUCC *XL* 25MG TAB (TopROL *XL*) PO SCH (10:50)
[2018-04-02] MEDS: MORPHINE 15 MG SA TAB PO SCH ×2 (10:51→22:24)
[2018-04-02] MEDS: IMBRUVICA 140 MG PO SCH (10:51)
[2018-04-02] MEDS: DIAPER RELIEF PASTE (DESITIN) 60GM TOP SCH (10:53)
[2018-04-02] MEDS: EUCERIN 120GM CREAM TOP SCH ×2 (10:55→22:24)
[2018-04-02] MEDS: MIRALAX *UNIT DOSE* 17GM PACKET PO SCH (10:55)
[2018-04-02] MEDS ORDERED: MORPHINE 4 MG/ML 1ML VIAL/SYRINGE (J2270) IV ONE (12:00)
[2018-04-02] MEDS: clonazePAM 1 MG TAB PO PRN (12:17)
[2018-04-02] MEDS: ENOXAPARIN 30 MG/0.3 ML SYR (J1650) SC SCH (22:23)
[2018-04-03] MEDS: oxyCODONE 5MG TAB PO PRN ×4 (00:49→22:20)
[2018-04-03] MEDS: CHOLESTYRAMINE 4 GM PWD PKT PO SCH ×2 (04:36→16:32)
[2018-04-03 06:00] VITALS: BP 109/50
[2018-04-03 06:49] LABS: HEMATOCRIT 32.6 % (36.0-47.0); HEMOGLOBIN 9.9 g/dl (12.0-15.5); MEAN CORPUSCULAR HEMOGLOBIN 27.4 pg (27.0-33.0); MEAN CORPUSCULAR HGB CONC 30.4 g/dl (32.0-36.5); MEAN CORPUSCULAR VOLUME 90.3 fl (80.0-96.0); PLATELET COUNT, AUTOMATED 395 10^3/uL (150-450); RED BLOOD COUNT 3.61 10^6/uL (4.00-5.40)
[2018-04-03 07:10] LABS: BLOOD UREA NITROGEN 18 MG/DL (7-18); CARBON DIOXIDE LEVEL 27 MEQ/L (21-32); CHLORIDE LEVEL 108 MEQ/L (98-107); CREATININE FOR GFR 0.48 MG/DL (0.55-1.30); GLOMERULAR FILTRATION RATE > 60.0 (>45); GLUCOSE, FASTING 73 MG/DL (70-100); POTASSIUM SERUM 3.9 MEQ/L (3.5-5.1); SODIUM LEVEL 141 MEQ/L (136-145)
[2018-04-03] MEDS ORDERED: MIRALAX *UNIT DOSE* 17GM PACKET PO PRN (09:00)
[2018-04-03] MEDS: VITAMIN D 1,000 INTERNATIONAL UNITS TABLET PO SCH ×2 (09:00→10:47)
[2018-04-03] MEDS: METOPROLOL SUCC *XL* 25MG TAB (TopROL *XL*) PO SCH (09:00)
[2018-04-03] MEDS: EUCERIN 120GM CREAM TOP SCH ×2 (09:00→20:14)
[2018-04-03] MEDS: buPROPion (WELLBUTRIN SR) 100 MG SR TAB PO SCH ×2 (10:46→20:14)
[2018-04-03] MEDS: GABAPENTIN 100 MG CAP PO SCH ×3 (10:46→20:13)
[2018-04-03] MEDS: TACROLIMUS 0.5 MG CAP PO SCH ×2 (10:46→20:12)
[2018-04-03] MEDS: FERROUS SULFATE 325MG TAB PO SCH (10:46)
[2018-04-03] MEDS: CYANOCOBALAMIN 500 MCG TAB PO SCH (10:47)
[2018-04-03] MEDS: FOLIC ACID 1 MG TAB PO SCH (10:47)
[2018-04-03] MEDS: methylPREDNISolone 4 MG TAB PO SCH (10:48)
[2018-04-03] MEDS: OMEGA-3 1000MG CAPSULE PO SCH (10:48)
[2018-04-03] MEDS: PANTOPRAZOLE 40MG TAB (PROTONIX) PO SCH ×2 (10:48→20:13)
[2018-04-03] MEDS: LACTOBACILLUS ACIDOPHILUS CAP (BACID) PO SCH ×3 (10:49→20:12)
[2018-04-03] MEDS: MORPHINE 15 MG SA TAB PO SCH ×2 (10:50→20:13)
[2018-04-03] MEDS: IMBRUVICA 140 MG PO SCH (10:52)
[2018-04-03] MEDS: ENOXAPARIN 30 MG/0.3 ML SYR (J1650) SC SCH (20:12)
[2018-04-04] MEDS: oxyCODONE 5MG TAB PO PRN ×5 (02:25→22:22)
[2018-04-04] MEDS: CHOLESTYRAMINE 4 GM PWD PKT PO SCH ×2 (05:08→15:43)
[2018-04-04 06:00] VITALS: BP 121/68
[2018-04-04 06:36] LABS: HEMATOCRIT 30.3 % (36.0-47.0); HEMOGLOBIN 9.4 g/dl (12.0-15.5); MEAN CORPUSCULAR HEMOGLOBIN 28.1 pg (27.0-33.0); MEAN CORPUSCULAR VOLUME 90.7 fl (80.0-96.0); PLATELET COUNT, AUTOMATED 363 10^3/uL (150-450); RED BLOOD COUNT 3.34 10^6/uL (4.00-5.40); WHITE BLOOD COUNT 13.6 10^3/uL (4.0-10.0)
[2018-04-04 07:00] LABS: BLOOD UREA NITROGEN 17 MG/DL (7-18); CALCIUM LEVEL 7.8 MG/DL (8.8-10.2); CARBON DIOXIDE LEVEL 24 MEQ/L (21-32); CHLORIDE LEVEL 109 MEQ/L (98-107); CREATININE FOR GFR 0.37 MG/DL (0.55-1.30); GLOMERULAR FILTRATION RATE > 60.0 (>45); GLUCOSE, FASTING 73 MG/DL (70-100); POTASSIUM SERUM 3.9 MEQ/L (3.5-5.1); SODIUM LEVEL 141 MEQ/L (136-145)
[2018-04-04] MEDS: FENTANYL REMOVAL DOCUMENTATION MISC XX SCH (08:31)
[2018-04-04] MEDS: LACTOBACILLUS ACIDOPHILUS CAP (BACID) PO SCH ×3 (08:31→20:09)
[2018-04-04] MEDS: OMEGA-3 1000MG CAPSULE PO SCH (08:31)
[2018-04-04] MEDS: VITAMIN D 1,000 INTERNATIONAL UNITS TABLET PO SCH ×2 (08:31→08:37)
[2018-04-04] MEDS: FOLIC ACID 1 MG TAB PO SCH (08:32)
[2018-04-04] MEDS: FERROUS SULFATE 325MG TAB PO SCH (08:32)
[2018-04-04] MEDS: methylPREDNISolone 4 MG TAB PO SCH (08:32)
[2018-04-04] MEDS: CYANOCOBALAMIN 500 MCG TAB PO SCH (08:32)
[2018-04-04] MEDS: GABAPENTIN 100 MG CAP PO SCH ×3 (08:32→20:10)
[2018-04-04] MEDS: TACROLIMUS 0.5 MG CAP PO SCH ×2 (08:32→20:09)
[2018-04-04] MEDS: buPROPion (WELLBUTRIN SR) 100 MG SR TAB PO SCH ×2 (08:33→20:10)
[2018-04-04] MEDS: PANTOPRAZOLE 40MG TAB (PROTONIX) PO SCH ×2 (08:33→20:10)
[2018-04-04] MEDS: METOPROLOL SUCC *XL* 25MG TAB (TopROL *XL*) PO SCH (08:35)
[2018-04-04] MEDS: MORPHINE 15 MG SA TAB PO SCH ×2 (08:35→20:10)
[2018-04-04] MEDS: fentaNYL 75 MCG/HR PATCH TD SCH (08:36)
[2018-04-04] MEDS: DIAPER RELIEF PASTE (DESITIN) 60GM TOP SCH (08:36)
[2018-04-04] MEDS: EUCERIN 120GM CREAM TOP SCH ×2 (08:37→20:10)
[2018-04-04] MEDS: IMBRUVICA 140 MG PO SCH (08:58)
[2018-04-04] MEDS: clonazePAM 1 MG TAB PO PRN (10:47)
[2018-04-04] MEDS: MORPHINE 4 MG/ML 1ML VIAL/SYRINGE (J2270) IV PRN (11:34)
[2018-04-04] MEDS: ENOXAPARIN 30 MG/0.3 ML SYR (J1650) SC SCH (20:09)
[2018-04-05] MEDS: clonazePAM 1 MG TAB PO PRN ×2 (00:41→20:24)
[2018-04-05] MEDS: ACETAMINOPHEN TAB 650MG DOSE (2X325MG) PO PRN (00:41)
[2018-04-05] MEDS: CHOLESTYRAMINE 4 GM PWD PKT PO SCH ×2 (05:11→15:10)
[2018-04-05] MEDS: oxyCODONE 5MG TAB PO PRN ×3 (05:12→15:10)
--- NOTE | 2018-04-05 08:05 | IPNPDOC ---
Text Note Date of Service The patient was seen on 04/05/18. NOTE Subjective: Patient seen and examined at bedside. No new medical complaints. She states she spoke with her oncologist (Dr. Miranda) who advised to notify office on discharge, with no recommendations for apharesis in the interim. Objective: General: NAD, lying comfortably in bed, chronically ill appearing HEENT: atraumatic, alopecia Lungs: CTA B/L Abd: soft, NT, +BS Ext: no edema A/P: 63 yo female pending placement #Leukocytosis -resolved, afebrile -Infectious disease consulted, appreciate their help-no abx for now as stated above #Chronic wounds -Continue dressing changes and wound care-wound consult telemedicine with Dr. Herrera-appreciate his help -pain management consulted-have implemented their recommendations # Acute on chronic pain. -Continue current regimen -pain mgmt has evaluated the patient, their recommendations have been implemented #Debility -PFS consult placed, pt may likely need home services or possible snf placement -Pt has been unable to care for self at home, not eating, not drinking well -telehealth director consult placed to make sure she is getting adequate nutritional needs-c/w Ensure TID -PT/OT ordered but patient refusing to work with them #H/O Acute myeloid leukemia (AML) status post stem cell transplantation in 2012 with chronic jycko-fzryzo-yzgn disease, with mostly skin manifestation -Patient follows with Dr. Morgan, [facility] oncology. -Pt. receives apheresis and chemotherapy treatments to her Bfqrgq-x-Xtzj spoken with Dr. morgan her long-term oncologist regarding her care she is in agreement with all of our plans of care thus far. - Patient states she contacted Dr. Morgan's office, with instructions to contact office on discharge, no further recs regarding apharesis -Further management as per Oncology [facility] -Continue Tacrolimus -Patient remains on Medrol 4 mg by mouth daily -Infuse aport has been evaluated by Dr. Priest, per note limited use only for now--for chemotherapy and pheresis, high infection risk. Appreciate his help. #GERD -Continue Protonix. #Hypertension -stable -Continue Toprol-XL 25 mg by mouth daily with hold parameters. #Chronic anemia - slowly trending down - continue to monitor -s/p 2 units pRBC -iron studies demonstrate possibly AOCD -Continue vitamin B12 supplements -Continue folic acid supplements #Depression - psych c/s appreciated #Constipation -c/w scheduled bowel regime medications especially in light of pain medication use Dispo: Pending placement VS,Fishbone, I+O VS, Fishbone, I+O Vital Signs Date Time Temp Pulse Resp B/P (MAP) Pulse Ox O2 Delivery O2 Flow Rate FiO2 04/05/18 05:42 17 Room Air 04/04/18 08:35 111 122/85 04/04/18 06:00 98.8 96 I&O- Last 24 Hours up to 6 AM 04/05/18 05:59 Intake Total 1500 ml Output Total 850 ml Balance 650 ml GLORIA TURNER MD Apr 05, 2018 08:05
[2018-04-05 09:00] VITALS: BP 90/58
[2018-04-05] MEDS: METOPROLOL SUCC *XL* 25MG TAB (TopROL *XL*) PO SCH (09:00)
[2018-04-05] MEDS: IMBRUVICA 140 MG PO SCH (09:00)
[2018-04-05] MEDS: FERROUS SULFATE 325MG TAB PO SCH (09:52)
[2018-04-05] MEDS: TACROLIMUS 0.5 MG CAP PO SCH ×2 (09:53→20:24)
[2018-04-05] MEDS: CYANOCOBALAMIN 500 MCG TAB PO SCH (09:53)
[2018-04-05] MEDS: LACTOBACILLUS ACIDOPHILUS CAP (BACID) PO SCH ×3 (09:53→20:23)
[2018-04-05] MEDS: methylPREDNISolone 4 MG TAB PO SCH (09:54)
[2018-04-05] MEDS: GABAPENTIN 100 MG CAP PO SCH ×3 (09:54→20:24)
[2018-04-05] MEDS: buPROPion (WELLBUTRIN SR) 100 MG SR TAB PO SCH ×2 (09:54→20:24)
[2018-04-05] MEDS: FOLIC ACID 1 MG TAB PO SCH (09:54)
[2018-04-05] MEDS: PANTOPRAZOLE 40MG TAB (PROTONIX) PO SCH ×2 (09:54→20:24)
[2018-04-05] MEDS: VITAMIN D 1,000 INTERNATIONAL UNITS TABLET PO SCH ×2 (09:55→09:56)
[2018-04-05] MEDS: OMEGA-3 1000MG CAPSULE PO SCH (10:01)
[2018-04-05] MEDS: EUCERIN 120GM CREAM TOP SCH ×2 (10:02→20:25)
[2018-04-05] MEDS: MORPHINE 15 MG SA TAB PO SCH ×2 (10:25→20:24)
[2018-04-05 14:25] VITALS: BP 110/60
[2018-04-05] MEDS: ENOXAPARIN 30 MG/0.3 ML SYR (J1650) SC SCH (20:23)
[2018-04-05 22:00] VITALS: BP 122/64
[2018-04-06] MEDS: oxyCODONE 5MG TAB PO PRN ×3 (03:32→16:26)
[2018-04-06] MEDS: CHOLESTYRAMINE 4 GM PWD PKT PO SCH ×2 (05:41→16:25)
[2018-04-06 06:00] VITALS: BP 128/66
--- NOTE | 2018-04-06 08:31 | IPNPDOC ---
Text Note Date of Service The patient was seen on 04/06/18. NOTE Subjective: Patient seen and examined at bedside. No acute overnight events reported. Objective: General: NAD, lying comfortably in bed, chronically ill appearing HEENT: alopecia, dermatologic manifestations of AML Lungs: CTA B/L Abd: soft, NT, +BS Ext: no edema A/P: 63 yo female pending placement #Leukocytosis -resolved, afebrile -Infectious disease consulted, appreciate their help-no abx for now as stated above #Chronic wounds -Continue dressing changes and wound care -wound consult telemedicine with Dr. Herrera-appreciate his help -pain management consulted-have implemented their recommendations # Acute on chronic pain. -Continue current regimen -pain mgmt has evaluated the patient, their recommendations have been implemented #Debility -PFS consult placed, pt may likely need home services or possible [facility] placement -Pt has been unable to care for self at home, not eating, not drinking well -junior architect consult placed to make sure she is getting adequate nutritional needs-c/w Ensure TID -PT/OT ordered but patient refusing to work with them #H/O Acute myeloid leukemia (AML) status post stem cell transplantation in 2012 with chronic zqqky-irmhcw-sdln disease, with mostly skin manifestation -Patient follows with Dr. Morgan, [facility] oncology. -Pt. receives apheresis and chemotherapy treatments to her Ealcvx-b-Dvre spoken with Dr. morgan her long-term oncologist regarding her care she is in agreement with all of our plans of care thus far. - Patient states she contacted Dr. Morgan's office, with instructions to contact office on discharge, no further recs regarding apharesis -Further management as per Oncology [facility] -Continue Tacrolimus -Patient remains on Medrol 4 mg by mouth daily -Infuse aport has been evaluated by Dr. Priest, per note limited use only for now--for chemotherapy and pheresis, high infection risk. Appreciate his help. #GERD -Continue Protonix. #Hypertension -stable -Continue Toprol-XL 25 mg by mouth daily with hold parameters. #Chronic anemia - slowly trending down - continue to monitor -s/p 2 units pRBC -iron studies demonstrate possibly AOCD -Continue vitamin B12 supplements -Continue folic acid supplements #Depression - psych c/s appreciated #Constipation -c/w scheduled bowel regimen medications especially in light of pain medication use Dispo: Pending placement VS,Fishbone, I+O VS, Fishbone, I+O Vital Signs Date Time Temp Pulse Resp B/P (MAP) Pulse Ox O2 Delivery O2 Flow Rate FiO2 04/06/18 07:48 18 04/06/18 06:00 98.1 112 128/66 (86) 98 Room Air I&O- Last 24 Hours up to 6 AM 04/06/18 06:00 Intake Total 1850 ml Output Total 1000 ml Balance 850 ml GLORIA TURNER MD Apr 06, 2018 08:31
[2018-04-06 09:00] VITALS: BP 128/73
[2018-04-06 09:15] VITALS: BP 128/73
[2018-04-06] MEDS: VITAMIN D 1,000 INTERNATIONAL UNITS TABLET PO SCH ×2 (10:56)
[2018-04-06] MEDS: methylPREDNISolone 4 MG TAB PO SCH (10:57)
[2018-04-06] MEDS: METOPROLOL SUCC *XL* 25MG TAB (TopROL *XL*) PO SCH (10:58)
[2018-04-06] MEDS: FOLIC ACID 1 MG TAB PO SCH (10:59)
[2018-04-06] MEDS: FERROUS SULFATE 325MG TAB PO SCH (10:59)
[2018-04-06] MEDS: PANTOPRAZOLE 40MG TAB (PROTONIX) PO SCH ×2 (11:00→20:28)
[2018-04-06] MEDS: OMEGA-3 1000MG CAPSULE PO SCH (11:00)
[2018-04-06] MEDS: TACROLIMUS 0.5 MG CAP PO SCH ×2 (11:01→20:29)
[2018-04-06] MEDS: CYANOCOBALAMIN 500 MCG TAB PO SCH (11:01)
[2018-04-06] MEDS: LACTOBACILLUS ACIDOPHILUS CAP (BACID) PO SCH ×3 (11:02→20:29)
[2018-04-06] MEDS: GABAPENTIN 100 MG CAP PO SCH ×3 (11:03→20:30)
[2018-04-06] MEDS: buPROPion (WELLBUTRIN SR) 100 MG SR TAB PO SCH ×2 (11:03→20:28)
[2018-04-06] MEDS: EUCERIN 120GM CREAM TOP SCH ×2 (11:04→20:30)
[2018-04-06] MEDS: DIAPER RELIEF PASTE (DESITIN) 60GM TOP SCH (11:04)
[2018-04-06] MEDS: IMBRUVICA 140 MG PO SCH (12:06)
[2018-04-06] MEDS: MORPHINE 15 MG SA TAB PO SCH ×2 (12:07→20:30)
[2018-04-06 13:39] VITALS: BP 127/76
[2018-04-06] MEDS: POLYVINYL ALCOHOL OPHTH SOLN 15 ML(LIQUITEARS) OU SCH ×2 (17:26→20:31)
[2018-04-06] MEDS: ENOXAPARIN 30 MG/0.3 ML SYR (J1650) SC SCH (20:28)
[2018-04-06 22:00] VITALS: BP 109/57
[2018-04-07] MEDS: oxyCODONE 5MG TAB PO PRN ×4 (01:10→15:42)
[2018-04-07] MEDS: CHOLESTYRAMINE 4 GM PWD PKT PO SCH ×2 (05:00→15:42)
[2018-04-07 06:00] VITALS: BP 103/56
[2018-04-07] MEDS: POLYVINYL ALCOHOL OPHTH SOLN 15 ML(LIQUITEARS) OU SCH ×4 (09:00→20:53)
[2018-04-07] MEDS: TACROLIMUS 0.5 MG CAP PO SCH ×2 (09:00→20:52)
[2018-04-07] MEDS: EUCERIN 120GM CREAM TOP SCH ×2 (09:00→20:53)
[2018-04-07] MEDS: fentaNYL 75 MCG/HR PATCH TD SCH (09:50)
[2018-04-07] MEDS: buPROPion (WELLBUTRIN SR) 100 MG SR TAB PO SCH ×2 (09:50→20:52)
[2018-04-07] MEDS: PANTOPRAZOLE 40MG TAB (PROTONIX) PO SCH ×2 (09:50→20:52)
[2018-04-07] MEDS: MORPHINE 15 MG SA TAB PO SCH ×2 (09:50→20:53)
[2018-04-07] MEDS: VITAMIN D 1,000 INTERNATIONAL UNITS TABLET PO SCH ×2 (09:51)
[2018-04-07] MEDS: FERROUS SULFATE 325MG TAB PO SCH (09:51)
[2018-04-07] MEDS: CYANOCOBALAMIN 500 MCG TAB PO SCH (09:51)
[2018-04-07] MEDS: OMEGA-3 1000MG CAPSULE PO SCH (09:52)
[2018-04-07] MEDS: FOLIC ACID 1 MG TAB PO SCH (09:52)
[2018-04-07] MEDS: methylPREDNISolone 4 MG TAB PO SCH (09:52)
[2018-04-07] MEDS: LACTOBACILLUS ACIDOPHILUS CAP (BACID) PO SCH ×3 (09:52→20:52)
[2018-04-07] MEDS: GABAPENTIN 100 MG CAP PO SCH ×3 (09:52→20:52)
[2018-04-07] MEDS: METOPROLOL SUCC *XL* 25MG TAB (TopROL *XL*) PO SCH (09:54)
[2018-04-07] MEDS: IMBRUVICA 140 MG PO SCH (09:55)
[2018-04-07] MEDS: clonazePAM 1 MG TAB PO PRN (15:45)
[2018-04-07] MEDS: MORPHINE 4 MG/ML 1ML VIAL/SYRINGE (J2270) IV PRN (16:38)
[2018-04-07] MEDS: ENOXAPARIN 30 MG/0.3 ML SYR (J1650) SC SCH (20:52)
[2018-04-07 22:00] VITALS: BP 131/73
[2018-04-08] MEDS: oxyCODONE 5MG TAB PO PRN ×4 (00:19→23:37)
[2018-04-08] MEDS: CHOLESTYRAMINE 4 GM PWD PKT PO SCH ×2 (05:00→16:17)
[2018-04-08 06:00] VITALS: BP 102/54
[2018-04-08] MEDS: DIAPER RELIEF PASTE (DESITIN) 60GM TOP SCH (09:00)
[2018-04-08] MEDS: METOPROLOL SUCC *XL* 25MG TAB (TopROL *XL*) PO SCH (09:00)
[2018-04-08] MEDS: methylPREDNISolone 4 MG TAB PO SCH (09:23)
[2018-04-08] MEDS: OMEGA-3 1000MG CAPSULE PO SCH (09:23)
[2018-04-08] MEDS: VITAMIN D 1,000 INTERNATIONAL UNITS TABLET PO SCH ×2 (09:23→09:24)
[2018-04-08] MEDS: clonazePAM 1 MG TAB PO PRN ×2 (09:23→23:13)
[2018-04-08] MEDS: GABAPENTIN 100 MG CAP PO SCH ×3 (09:23→20:39)
[2018-04-08] MEDS: buPROPion (WELLBUTRIN SR) 100 MG SR TAB PO SCH ×2 (09:24→20:41)
[2018-04-08] MEDS: CYANOCOBALAMIN 500 MCG TAB PO SCH (09:24)
[2018-04-08] MEDS: LACTOBACILLUS ACIDOPHILUS CAP (BACID) PO SCH ×3 (09:24→20:37)
[2018-04-08] MEDS: FOLIC ACID 1 MG TAB PO SCH (09:24)
[2018-04-08] MEDS: FERROUS SULFATE 325MG TAB PO SCH (09:24)
[2018-04-08] MEDS: PANTOPRAZOLE 40MG TAB (PROTONIX) PO SCH ×2 (09:25→20:39)
[2018-04-08] MEDS: MORPHINE 15 MG SA TAB PO SCH ×2 (09:25→20:38)
[2018-04-08] MEDS: TACROLIMUS 0.5 MG CAP PO SCH ×2 (09:25→20:39)
[2018-04-08] MEDS: IMBRUVICA 140 MG PO SCH (09:25)
[2018-04-08] MEDS: EUCERIN 120GM CREAM TOP SCH ×2 (09:26→20:40)
[2018-04-08] MEDS: POLYVINYL ALCOHOL OPHTH SOLN 15 ML(LIQUITEARS) OU SCH ×4 (09:26→20:40)
[2018-04-08] MEDS: ENOXAPARIN 30 MG/0.3 ML SYR (J1650) SC SCH (20:40)
[2018-04-09] MEDS: CHOLESTYRAMINE 4 GM PWD PKT PO SCH ×2 (04:57→15:54)
[2018-04-09] MEDS: oxyCODONE 5MG TAB PO PRN ×4 (05:10→22:04)
[2018-04-09 06:00] VITALS: BP 108/69
[2018-04-09] MEDS: EUCERIN 120GM CREAM TOP SCH ×2 (09:00→20:17)
[2018-04-09] MEDS: POLYVINYL ALCOHOL OPHTH SOLN 15 ML(LIQUITEARS) OU SCH ×4 (09:00→20:18)
[2018-04-09] MEDS: buPROPion (WELLBUTRIN SR) 100 MG SR TAB PO SCH ×2 (09:17→20:15)
[2018-04-09] MEDS: CYANOCOBALAMIN 500 MCG TAB PO SCH (09:17)
[2018-04-09] MEDS: VITAMIN D 1,000 INTERNATIONAL UNITS TABLET PO SCH ×2 (09:17)
[2018-04-09] MEDS: FERROUS SULFATE 325MG TAB PO SCH (09:17)
[2018-04-09] MEDS: PANTOPRAZOLE 40MG TAB (PROTONIX) PO SCH ×2 (09:18→20:15)
[2018-04-09] MEDS: OMEGA-3 1000MG CAPSULE PO SCH (09:18)
[2018-04-09] MEDS: TACROLIMUS 0.5 MG CAP PO SCH ×2 (09:18→20:15)
[2018-04-09] MEDS: clonazePAM 1 MG TAB PO PRN ×2 (09:18→20:16)
[2018-04-09] MEDS: methylPREDNISolone 4 MG TAB PO SCH (09:18)
[2018-04-09] MEDS: LACTOBACILLUS ACIDOPHILUS CAP (BACID) PO SCH ×3 (09:18→20:15)
[2018-04-09] MEDS: GABAPENTIN 100 MG CAP PO SCH ×3 (09:18→20:16)
[2018-04-09] MEDS: FOLIC ACID 1 MG TAB PO SCH (09:18)
[2018-04-09] MEDS: IMBRUVICA 140 MG PO SCH (09:19)
[2018-04-09] MEDS: METOPROLOL SUCC *XL* 25MG TAB (TopROL *XL*) PO SCH (09:19)
[2018-04-09] MEDS: MORPHINE 15 MG SA TAB PO SCH ×2 (09:20→20:16)
[2018-04-09] MEDS: MORPHINE 4 MG/ML 1ML VIAL/SYRINGE (J2270) IV PRN ×2 (13:05→15:53)
[2018-04-09] MEDS: ENOXAPARIN 30 MG/0.3 ML SYR (J1650) SC SCH (20:17)
[2018-04-10] MEDS: CHOLESTYRAMINE 4 GM PWD PKT PO SCH ×2 (05:20→17:04)
[2018-04-10] MEDS: oxyCODONE 5MG TAB PO PRN ×4 (05:21→17:05)
[2018-04-10 06:00] VITALS: BP 125/87
[2018-04-10] MEDS: CYANOCOBALAMIN 500 MCG TAB PO SCH (09:27)
[2018-04-10] MEDS: TACROLIMUS 0.5 MG CAP PO SCH ×2 (09:27→20:22)
[2018-04-10] MEDS: clonazePAM 1 MG TAB PO PRN ×2 (09:27→20:27)
[2018-04-10] MEDS: PANTOPRAZOLE 40MG TAB (PROTONIX) PO SCH ×2 (09:27→20:23)
[2018-04-10] MEDS: OMEGA-3 1000MG CAPSULE PO SCH (09:27)
[2018-04-10] MEDS: LACTOBACILLUS ACIDOPHILUS CAP (BACID) PO SCH ×3 (09:28→20:21)
[2018-04-10] MEDS: VITAMIN D 1,000 INTERNATIONAL UNITS TABLET PO SCH ×2 (09:28)
[2018-04-10] MEDS: buPROPion (WELLBUTRIN SR) 100 MG SR TAB PO SCH ×2 (09:28→20:21)
[2018-04-10] MEDS: MORPHINE 15 MG SA TAB PO SCH ×2 (09:29→20:22)
[2018-04-10] MEDS: GABAPENTIN 100 MG CAP PO SCH ×3 (09:29→20:21)
[2018-04-10] MEDS: FERROUS SULFATE 325MG TAB PO SCH (09:29)
[2018-04-10] MEDS: METOPROLOL SUCC *XL* 25MG TAB (TopROL *XL*) PO SCH (09:30)
[2018-04-10] MEDS: IMBRUVICA 140 MG PO SCH (09:30)
[2018-04-10] MEDS: methylPREDNISolone 4 MG TAB PO SCH (09:30)
[2018-04-10] MEDS: FOLIC ACID 1 MG TAB PO SCH (09:30)
[2018-04-10] MEDS: EUCERIN 120GM CREAM TOP SCH ×2 (09:36→20:24)
[2018-04-10] MEDS: DIAPER RELIEF PASTE (DESITIN) 60GM TOP SCH (09:36)
[2018-04-10] MEDS: fentaNYL 75 MCG/HR PATCH TD SCH (09:36)
[2018-04-10] MEDS: POLYVINYL ALCOHOL OPHTH SOLN 15 ML(LIQUITEARS) OU SCH ×4 (09:37→20:24)
[2018-04-10] MEDS: FENTANYL REMOVAL DOCUMENTATION MISC XX SCH (09:41)
[2018-04-10] MEDS: ENOXAPARIN 30 MG/0.3 ML SYR (J1650) SC SCH (20:23)
[2018-04-10 22:00] VITALS: BP 98/62
[2018-04-11] MEDS: CHOLESTYRAMINE 4 GM PWD PKT PO SCH ×2 (05:12→16:56)
[2018-04-11] MEDS: oxyCODONE 5MG TAB PO PRN ×4 (05:12→16:56)
[2018-04-11 06:00] VITALS: BP 114/57
[2018-04-11] MEDS: PANTOPRAZOLE 40MG TAB (PROTONIX) PO SCH ×2 (09:37→21:01)
[2018-04-11] MEDS: TACROLIMUS 0.5 MG CAP PO SCH ×2 (09:37→21:01)
[2018-04-11] MEDS: buPROPion (WELLBUTRIN SR) 100 MG SR TAB PO SCH ×2 (09:37→21:01)
[2018-04-11] MEDS: LACTOBACILLUS ACIDOPHILUS CAP (BACID) PO SCH ×3 (09:37→21:01)
[2018-04-11] MEDS: CYANOCOBALAMIN 500 MCG TAB PO SCH (09:37)
[2018-04-11] MEDS: VITAMIN D 1,000 INTERNATIONAL UNITS TABLET PO SCH ×2 (09:37→09:41)
[2018-04-11] MEDS: METOPROLOL SUCC *XL* 25MG TAB (TopROL *XL*) PO SCH (09:38)
[2018-04-11] MEDS: clonazePAM 1 MG TAB PO PRN (09:39)
[2018-04-11] MEDS: methylPREDNISolone 4 MG TAB PO SCH (09:39)
[2018-04-11] MEDS: FOLIC ACID 1 MG TAB PO SCH (09:39)
[2018-04-11] MEDS: OMEGA-3 1000MG CAPSULE PO SCH (09:39)
[2018-04-11] MEDS: FERROUS SULFATE 325MG TAB PO SCH (09:39)
[2018-04-11] MEDS: MORPHINE 15 MG SA TAB PO SCH ×2 (09:39→21:02)
[2018-04-11] MEDS: GABAPENTIN 100 MG CAP PO SCH ×3 (09:40→21:02)
[2018-04-11] MEDS: IMBRUVICA 140 MG PO SCH (09:41)
[2018-04-11] MEDS: EUCERIN 120GM CREAM TOP SCH ×2 (09:42→21:02)
[2018-04-11] MEDS: DIAPER RELIEF PASTE (DESITIN) 60GM TOP SCH (09:42)
[2018-04-11] MEDS: POLYVINYL ALCOHOL OPHTH SOLN 15 ML(LIQUITEARS) OU SCH ×4 (09:42→21:01)
[2018-04-11] MEDS: ENOXAPARIN 30 MG/0.3 ML SYR (J1650) SC SCH (21:01)
[2018-04-12] MEDS: clonazePAM 1 MG TAB PO PRN ×2 (00:15→23:34)
[2018-04-12] MEDS: CHOLESTYRAMINE 4 GM PWD PKT PO SCH ×2 (04:26→18:09)
[2018-04-12] MEDS: oxyCODONE 5MG TAB PO PRN ×3 (04:27→17:16)
[2018-04-12] MEDS: CYANOCOBALAMIN 500 MCG TAB PO SCH (09:36)
[2018-04-12] MEDS: FERROUS SULFATE 325MG TAB PO SCH (09:36)
[2018-04-12] MEDS: LACTOBACILLUS ACIDOPHILUS CAP (BACID) PO SCH ×3 (09:36→20:49)
[2018-04-12] MEDS: methylPREDNISolone 4 MG TAB PO SCH (09:36)
[2018-04-12] MEDS: PANTOPRAZOLE 40MG TAB (PROTONIX) PO SCH ×2 (09:36→20:49)
[2018-04-12] MEDS: OMEGA-3 1000MG CAPSULE PO SCH (09:36)
[2018-04-12] MEDS: TACROLIMUS 0.5 MG CAP PO SCH ×2 (09:38→20:49)
[2018-04-12] MEDS: VITAMIN D 1,000 INTERNATIONAL UNITS TABLET PO SCH ×2 (09:38)
[2018-04-12] MEDS: buPROPion (WELLBUTRIN SR) 100 MG SR TAB PO SCH ×2 (09:38→20:49)
[2018-04-12] MEDS: GABAPENTIN 100 MG CAP PO SCH ×3 (09:38→20:49)
[2018-04-12] MEDS: MORPHINE 15 MG SA TAB PO SCH ×2 (09:39→20:49)
[2018-04-12] MEDS: FOLIC ACID 1 MG TAB PO SCH (09:39)
[2018-04-12] MEDS: IMBRUVICA 140 MG PO SCH (09:40)
[2018-04-12] MEDS: METOPROLOL SUCC *XL* 25MG TAB (TopROL *XL*) PO SCH (09:40)
[2018-04-12] MEDS: POLYVINYL ALCOHOL OPHTH SOLN 15 ML(LIQUITEARS) OU SCH ×4 (09:41→20:50)
[2018-04-12] MEDS: DIAPER RELIEF PASTE (DESITIN) 60GM TOP SCH (09:41)
[2018-04-12] MEDS: MORPHINE 10MG/0.5ML ORAL CONCENTRATE SOLUTION U/D SL PRN (09:41)
[2018-04-12] MEDS: EUCERIN 120GM CREAM TOP SCH ×2 (09:42→20:50)
[2018-04-12 09:48] VITALS: BP 120/74
[2018-04-12 16:35] VITALS: BP 140/68
[2018-04-12 20:47] VITALS: BP 140/68
[2018-04-12] MEDS: ENOXAPARIN 30 MG/0.3 ML SYR (J1650) SC SCH (20:49)
[2018-04-13] MEDS: CHOLESTYRAMINE 4 GM PWD PKT PO SCH ×2 (04:39→17:18)
[2018-04-13] MEDS: oxyCODONE 5MG TAB PO PRN ×3 (04:40→20:49)
[2018-04-13 06:00] VITALS: BP 112/73
[2018-04-13 08:14] LABS: BASO # 0.1 10^3/uL (0.0-0.2); BASO % 0.4 % (0.0-1.0); EOS # 0.4 10^3/uL (0.0-0.50); EOS % 2.5 % (0.0-3.0); HEMATOCRIT 33.6 % (36.0-47.0); HEMOGLOBIN 10.4 g/dl (12.0-15.5); LYMPH % 13.8 % (24.0-44.0); MEAN CORPUSCULAR HEMOGLOBIN 27.9 pg (27.0-33.0); MEAN CORPUSCULAR VOLUME 90.1 fl (80.0-96.0); MONO % 18.1 % (0.0-5.0); NEUTROPHILS # 9.1 10^3/uL (1.8-7.7); NEUTROPHILS % 64.1 % (36.0-66.0); PLATELET COUNT, AUTOMATED 432 10^3/uL (150-450); RED BLOOD COUNT 3.73 10^6/uL (4.00-5.40); WHITE BLOOD COUNT 14.2 10^3/uL (4.0-10.0)
[2018-04-13 08:22] LABS: BLOOD UREA NITROGEN 20 MG/DL (7-18); CARBON DIOXIDE LEVEL 26 MEQ/L (21-32); CHLORIDE LEVEL 110 MEQ/L (98-107); CREATININE FOR GFR 0.42 MG/DL (0.55-1.30); GLOMERULAR FILTRATION RATE > 60.0 (>45); GLUCOSE, FASTING 76 MG/DL (70-100); POTASSIUM SERUM 3.8 MEQ/L (3.5-5.1); SODIUM LEVEL 142 MEQ/L (136-145)
[2018-04-13] MEDS: CYANOCOBALAMIN 500 MCG TAB PO SCH (08:46)
[2018-04-13] MEDS: methylPREDNISolone 4 MG TAB PO SCH (08:46)
[2018-04-13] MEDS: FOLIC ACID 1 MG TAB PO SCH (08:47)
[2018-04-13] MEDS: FERROUS SULFATE 325MG TAB PO SCH (08:47)
[2018-04-13] MEDS: GABAPENTIN 100 MG CAP PO SCH ×3 (08:47→20:48)
[2018-04-13] MEDS: METOPROLOL SUCC *XL* 25MG TAB (TopROL *XL*) PO SCH (08:50)
[2018-04-13] MEDS: VITAMIN D 1,000 INTERNATIONAL UNITS TABLET PO SCH ×2 (08:51→08:52)
[2018-04-13] MEDS: LACTOBACILLUS ACIDOPHILUS CAP (BACID) PO SCH ×3 (08:51→20:48)
[2018-04-13] MEDS: buPROPion (WELLBUTRIN SR) 100 MG SR TAB PO SCH ×2 (08:51→20:48)
[2018-04-13] MEDS: TACROLIMUS 0.5 MG CAP PO SCH ×2 (08:51→20:55)
[2018-04-13] MEDS: PANTOPRAZOLE 40MG TAB (PROTONIX) PO SCH ×2 (08:52→20:48)
[2018-04-13] MEDS: OMEGA-3 1000MG CAPSULE PO SCH (08:52)
[2018-04-13] MEDS: MORPHINE 15 MG SA TAB PO SCH ×2 (08:52→20:54)
[2018-04-13] MEDS: EUCERIN 120GM CREAM TOP SCH ×2 (08:53→20:56)
[2018-04-13] MEDS: fentaNYL 75 MCG/HR PATCH TD SCH (08:53)
[2018-04-13] MEDS: IMBRUVICA 140 MG PO SCH (08:53)
[2018-04-13] MEDS: POLYVINYL ALCOHOL OPHTH SOLN 15 ML(LIQUITEARS) OU SCH ×4 (08:53→20:56)
[2018-04-13] MEDS: FENTANYL REMOVAL DOCUMENTATION MISC XX SCH (08:55)
[2018-04-13 09:18] LABS: MONO # 2.6 10^3/uL (0.0-0.8)
[2018-04-13] MEDS: ENOXAPARIN 30 MG/0.3 ML SYR (J1650) SC SCH (20:48)
[2018-04-14] MEDS: CHOLESTYRAMINE 4 GM PWD PKT PO SCH ×2 (05:44→16:53)
[2018-04-14 06:00] VITALS: BP 105/72
[2018-04-14] MEDS: methylPREDNISolone 4 MG TAB PO SCH (09:00)
[2018-04-14] MEDS: DIAPER RELIEF PASTE (DESITIN) 60GM TOP SCH (09:00)
[2018-04-14] MEDS: METOPROLOL SUCC *XL* 25MG TAB (TopROL *XL*) PO SCH (09:00)
[2018-04-14] MEDS: EUCERIN 120GM CREAM TOP SCH ×2 (09:42→20:46)
[2018-04-14] MEDS: POLYVINYL ALCOHOL OPHTH SOLN 15 ML(LIQUITEARS) OU SCH ×4 (09:42→20:45)
[2018-04-14] MEDS: CYANOCOBALAMIN 500 MCG TAB PO SCH (09:42)
[2018-04-14] MEDS: buPROPion (WELLBUTRIN SR) 100 MG SR TAB PO SCH ×2 (09:43→20:44)
[2018-04-14] MEDS: GABAPENTIN 100 MG CAP PO SCH ×3 (09:43→20:43)
[2018-04-14] MEDS: MORPHINE 15 MG SA TAB PO SCH ×2 (09:43→20:44)
[2018-04-14] MEDS: FOLIC ACID 1 MG TAB PO SCH (09:44)
[2018-04-14] MEDS: TACROLIMUS 0.5 MG CAP PO SCH ×2 (09:44→20:44)
[2018-04-14] MEDS: LACTOBACILLUS ACIDOPHILUS CAP (BACID) PO SCH ×3 (09:44→20:44)
[2018-04-14] MEDS: PANTOPRAZOLE 40MG TAB (PROTONIX) PO SCH ×2 (09:44→20:44)
[2018-04-14] MEDS: VITAMIN D 1,000 INTERNATIONAL UNITS TABLET PO SCH (09:45)
[2018-04-14] MEDS: OMEGA-3 1000MG CAPSULE PO SCH (09:45)
[2018-04-14] MEDS: FERROUS SULFATE 325MG TAB PO SCH (09:45)
[2018-04-14] MEDS: IMBRUVICA 140 MG PO SCH (09:45)
[2018-04-14] MEDS: oxyCODONE 5MG TAB PO PRN ×3 (12:42→22:23)
[2018-04-14] MEDS: clonazePAM 1 MG TAB PO PRN (12:43)
[2018-04-14] MEDS: MORPHINE 10MG/0.5ML ORAL CONCENTRATE SOLUTION U/D SL PRN ×2 (12:45→18:29)
[2018-04-14] MEDS: ACETAMINOPHEN TAB 650MG DOSE (2X325MG) PO PRN (20:44)
[2018-04-14] MEDS: ENOXAPARIN 30 MG/0.3 ML SYR (J1650) SC SCH (20:45)
[2018-04-15] MEDS: MORPHINE 10MG/0.5ML ORAL CONCENTRATE SOLUTION U/D SL PRN (01:36)
[2018-04-15] MEDS: oxyCODONE 5MG TAB PO PRN ×3 (05:39→17:17)
[2018-04-15] MEDS: CHOLESTYRAMINE 4 GM PWD PKT PO SCH ×2 (05:39→17:17)
[2018-04-15 06:00] VITALS: BP 132/67
[2018-04-15] MEDS: LACTOBACILLUS ACIDOPHILUS CAP (BACID) PO SCH ×3 (09:44→22:33)
[2018-04-15] MEDS: GABAPENTIN 100 MG CAP PO SCH ×3 (09:44→22:33)
[2018-04-15] MEDS: METOPROLOL SUCC *XL* 25MG TAB (TopROL *XL*) PO SCH (09:48)
[2018-04-15] MEDS: methylPREDNISolone 4 MG TAB PO SCH (09:48)
[2018-04-15] MEDS: MORPHINE 15 MG SA TAB PO SCH ×2 (09:48→22:33)
[2018-04-15] MEDS: VITAMIN D 1,000 INTERNATIONAL UNITS TABLET PO SCH (09:48)
[2018-04-15] MEDS: FERROUS SULFATE 325MG TAB PO SCH (09:48)
[2018-04-15] MEDS: CYANOCOBALAMIN 500 MCG TAB PO SCH (09:49)
[2018-04-15] MEDS: FOLIC ACID 1 MG TAB PO SCH (09:49)
[2018-04-15] MEDS: OMEGA-3 1000MG CAPSULE PO SCH (09:49)
[2018-04-15] MEDS: buPROPion (WELLBUTRIN SR) 100 MG SR TAB PO SCH ×2 (09:49→22:32)
[2018-04-15] MEDS: IMBRUVICA 140 MG PO SCH (09:49)
[2018-04-15] MEDS: TACROLIMUS 0.5 MG CAP PO SCH ×2 (09:49→22:33)
[2018-04-15] MEDS: PANTOPRAZOLE 40MG TAB (PROTONIX) PO SCH ×2 (09:49→22:33)
[2018-04-15] MEDS: EUCERIN 120GM CREAM TOP SCH ×2 (09:50→22:34)
[2018-04-15] MEDS: POLYVINYL ALCOHOL OPHTH SOLN 15 ML(LIQUITEARS) OU SCH ×4 (09:50→22:33)
[2018-04-15] MEDS: ENOXAPARIN 30 MG/0.3 ML SYR (J1650) SC SCH (22:32)
[2018-04-16] MEDS: oxyCODONE 5MG TAB PO PRN ×4 (00:32→16:47)
[2018-04-16] MEDS: clonazePAM 1 MG TAB PO PRN ×2 (02:43→20:25)
[2018-04-16] MEDS: CHOLESTYRAMINE 4 GM PWD PKT PO SCH ×2 (05:13→16:46)
[2018-04-16 06:00] VITALS: BP 104/64
[2018-04-16] MEDS: OMEGA-3 1000MG CAPSULE PO SCH (08:39)
[2018-04-16] MEDS: GABAPENTIN 100 MG CAP PO SCH ×3 (08:39→21:43)
[2018-04-16] MEDS: VITAMIN D 1,000 INTERNATIONAL UNITS TABLET PO SCH (08:39)
[2018-04-16] MEDS: LACTOBACILLUS ACIDOPHILUS CAP (BACID) PO SCH ×3 (08:39→21:43)
[2018-04-16] MEDS: buPROPion (WELLBUTRIN SR) 100 MG SR TAB PO SCH ×2 (08:39→21:42)
[2018-04-16] MEDS: PANTOPRAZOLE 40MG TAB (PROTONIX) PO SCH ×2 (08:39→21:43)
[2018-04-16] MEDS: CYANOCOBALAMIN 500 MCG TAB PO SCH (08:39)
[2018-04-16] MEDS: MORPHINE 15 MG SA TAB PO SCH ×2 (08:41→21:43)
[2018-04-16] MEDS: methylPREDNISolone 4 MG TAB PO SCH (08:41)
[2018-04-16] MEDS: FOLIC ACID 1 MG TAB PO SCH (08:41)
[2018-04-16] MEDS: TACROLIMUS 0.5 MG CAP PO SCH ×2 (08:42→21:43)
[2018-04-16] MEDS: METOPROLOL SUCC *XL* 25MG TAB (TopROL *XL*) PO SCH (08:42)
[2018-04-16] MEDS: FERROUS SULFATE 325MG TAB PO SCH (08:44)
[2018-04-16] MEDS: IMBRUVICA 140 MG PO SCH (08:44)
[2018-04-16] MEDS: fentaNYL 75 MCG/HR PATCH TD SCH (08:44)
[2018-04-16] MEDS: POLYVINYL ALCOHOL OPHTH SOLN 15 ML(LIQUITEARS) OU SCH ×4 (08:44→21:42)
[2018-04-16] MEDS: EUCERIN 120GM CREAM TOP SCH ×2 (08:45→21:42)
[2018-04-16] MEDS: FENTANYL REMOVAL DOCUMENTATION MISC XX SCH (08:51)
[2018-04-16] MEDS: DIAPER RELIEF PASTE (DESITIN) 60GM TOP SCH (09:05)
[2018-04-16] MEDS: MORPHINE 10MG/0.5ML ORAL CONCENTRATE SOLUTION U/D SL PRN (11:56)
[2018-04-16] MEDS: ACETAMINOPHEN TAB 650MG DOSE (2X325MG) PO PRN (14:29)
[2018-04-16] MEDS: ENOXAPARIN 30 MG/0.3 ML SYR (J1650) SC SCH (21:43)
[2018-04-17] MEDS: oxyCODONE 5MG TAB PO PRN ×4 (03:47→21:43)
[2018-04-17] MEDS: CHOLESTYRAMINE 4 GM PWD PKT PO SCH ×2 (05:31→16:21)
[2018-04-17 06:00] VITALS: BP 119/62
[2018-04-17] MEDS: OMEGA-3 1000MG CAPSULE PO SCH (08:53)
[2018-04-17] MEDS: MORPHINE 15 MG SA TAB PO SCH ×2 (08:54→21:42)
[2018-04-17] MEDS: PANTOPRAZOLE 40MG TAB (PROTONIX) PO SCH ×2 (08:58→21:43)
[2018-04-17] MEDS: VITAMIN D 1,000 INTERNATIONAL UNITS TABLET PO SCH (08:58)
[2018-04-17] MEDS: buPROPion (WELLBUTRIN SR) 100 MG SR TAB PO SCH ×2 (08:58→21:42)
[2018-04-17] MEDS: LACTOBACILLUS ACIDOPHILUS CAP (BACID) PO SCH ×3 (08:58→21:41)
[2018-04-17] MEDS: methylPREDNISolone 4 MG TAB PO SCH (08:59)
[2018-04-17] MEDS: TACROLIMUS 0.5 MG CAP PO SCH ×2 (08:59→21:43)
[2018-04-17] MEDS: GABAPENTIN 100 MG CAP PO SCH ×3 (08:59→21:41)
[2018-04-17] MEDS: FERROUS SULFATE 325MG TAB PO SCH (08:59)
[2018-04-17] MEDS: FOLIC ACID 1 MG TAB PO SCH (08:59)
[2018-04-17] MEDS: CYANOCOBALAMIN 500 MCG TAB PO SCH (08:59)
[2018-04-17] MEDS ORDERED: FLUBLOK(EGG FREE)(QUAD)INFLUENZA VACC 0.5ML SYRINGE (90682)18YRS&OLDER IM ONE (09:00)
[2018-04-17] MEDS: IMBRUVICA 140 MG PO SCH (09:00)
[2018-04-17] MEDS: METOPROLOL SUCC *XL* 25MG TAB (TopROL *XL*) PO SCH (09:01)
[2018-04-17] MEDS: EUCERIN 120GM CREAM TOP SCH ×2 (09:04→21:44)
[2018-04-17] MEDS: POLYVINYL ALCOHOL OPHTH SOLN 15 ML(LIQUITEARS) OU SCH ×4 (09:04→21:00)
[2018-04-17] MEDS: ENOXAPARIN 30 MG/0.3 ML SYR (J1650) SC SCH (21:44)
[2018-04-18] MEDS: oxyCODONE 5MG TAB PO PRN ×5 (01:49→20:31)
[2018-04-18] MEDS: CHOLESTYRAMINE 4 GM PWD PKT PO SCH ×2 (04:54→18:01)
[2018-04-18 06:00] VITALS: BP 119/61
[2018-04-18] MEDS: MORPHINE 10MG/0.5ML ORAL CONCENTRATE SOLUTION U/D SL PRN ×2 (09:26→13:15)
[2018-04-18] MEDS: LACTOBACILLUS ACIDOPHILUS CAP (BACID) PO SCH ×3 (10:08→20:29)
[2018-04-18] MEDS: methylPREDNISolone 4 MG TAB PO SCH (10:08)
[2018-04-18] MEDS: TACROLIMUS 0.5 MG CAP PO SCH ×2 (10:09→20:30)
[2018-04-18] MEDS: VITAMIN D 1,000 INTERNATIONAL UNITS TABLET PO SCH (10:09)
[2018-04-18] MEDS: OMEGA-3 1000MG CAPSULE PO SCH (10:09)
[2018-04-18] MEDS: GABAPENTIN 100 MG CAP PO SCH ×3 (10:10→20:30)
[2018-04-18] MEDS: FOLIC ACID 1 MG TAB PO SCH (10:10)
[2018-04-18] MEDS: buPROPion (WELLBUTRIN SR) 100 MG SR TAB PO SCH ×2 (10:11→20:29)
[2018-04-18] MEDS: FERROUS SULFATE 325MG TAB PO SCH (10:11)
[2018-04-18] MEDS: PANTOPRAZOLE 40MG TAB (PROTONIX) PO SCH ×2 (10:11→20:30)
[2018-04-18] MEDS: CYANOCOBALAMIN 500 MCG TAB PO SCH (10:11)
[2018-04-18] MEDS: MORPHINE 15 MG SA TAB PO SCH ×2 (10:11→20:30)
[2018-04-18] MEDS: METOPROLOL SUCC *XL* 25MG TAB (TopROL *XL*) PO SCH (10:12)
[2018-04-18] MEDS: POLYVINYL ALCOHOL OPHTH SOLN 15 ML(LIQUITEARS) OU SCH ×4 (10:13→20:29)
[2018-04-18] MEDS: EUCERIN 120GM CREAM TOP SCH ×2 (10:13→20:29)
[2018-04-18] MEDS: DIAPER RELIEF PASTE (DESITIN) 60GM TOP SCH (10:14)
[2018-04-18] MEDS: IMBRUVICA 140 MG PO SCH (10:14)
[2018-04-18] MEDS: clonazePAM 1 MG TAB PO PRN (12:55)
[2018-04-18] MEDS: ACETAMINOPHEN TAB 650MG DOSE (2X325MG) PO PRN (14:12)
[2018-04-18] MEDS: ONDANSETRON 4 MG TAB (S0181) PO PRN (14:30)
[2018-04-18] MEDS: ENOXAPARIN 30 MG/0.3 ML SYR (J1650) SC SCH (20:31)
[2018-04-19] MEDS: oxyCODONE 5MG TAB PO PRN ×4 (00:29→17:02)
[2018-04-19] MEDS: CHOLESTYRAMINE 4 GM PWD PKT PO SCH ×2 (04:34→17:02)
[2018-04-19 06:00] VITALS: BP 135/75
[2018-04-19] MEDS: MORPHINE 10MG/0.5ML ORAL CONCENTRATE SOLUTION U/D SL PRN ×3 (06:12→23:57)
[2018-04-19] MEDS: IMBRUVICA 140 MG PO SCH (09:00)
[2018-04-19 09:10] VITALS: BP 112/66
[2018-04-19] MEDS: FERROUS SULFATE 325MG TAB PO SCH (10:43)
[2018-04-19] MEDS: buPROPion (WELLBUTRIN SR) 100 MG SR TAB PO SCH ×2 (10:43→20:22)
[2018-04-19] MEDS: FOLIC ACID 1 MG TAB PO SCH (10:44)
[2018-04-19] MEDS: CYANOCOBALAMIN 500 MCG TAB PO SCH (10:44)
[2018-04-19] MEDS: OMEGA-3 1000MG CAPSULE PO SCH (10:44)
[2018-04-19] MEDS: VITAMIN D 1,000 INTERNATIONAL UNITS TABLET PO SCH (10:45)
[2018-04-19] MEDS: PANTOPRAZOLE 40MG TAB (PROTONIX) PO SCH ×2 (10:46→20:23)
[2018-04-19] MEDS: METOPROLOL SUCC *XL* 25MG TAB (TopROL *XL*) PO SCH (10:46)
[2018-04-19] MEDS: LACTOBACILLUS ACIDOPHILUS CAP (BACID) PO SCH ×3 (10:47→20:21)
[2018-04-19] MEDS: TACROLIMUS 0.5 MG CAP PO SCH ×2 (10:47→20:23)
[2018-04-19] MEDS: methylPREDNISolone 4 MG TAB PO SCH (10:47)
[2018-04-19] MEDS: GABAPENTIN 100 MG CAP PO SCH ×3 (10:48→20:21)
[2018-04-19] MEDS: POLYVINYL ALCOHOL OPHTH SOLN 15 ML(LIQUITEARS) OU SCH ×4 (10:48→20:20)
[2018-04-19] MEDS: EUCERIN 120GM CREAM TOP SCH ×2 (10:49→20:24)
[2018-04-19] MEDS: MORPHINE 15 MG SA TAB PO SCH ×2 (10:51→22:19)
[2018-04-19] MEDS: fentaNYL 75 MCG/HR PATCH TD SCH (10:52)
[2018-04-19 14:20] VITALS: BP 112/68
[2018-04-19 17:18] VITALS: BP 111/59
[2018-04-19] MEDS: ENOXAPARIN 30 MG/0.3 ML SYR (J1650) SC SCH (20:24)
--- NOTE | 2018-04-19 20:26 | IPNPDOC ---
Date Seen The patient was seen on 04/19/18. Progress Note Subjective: Pt complained of bilateral LE pain especially during dressing changes, not improved with current pain meds. She continues to have persistent pain keeping her from sleeping well at night. She states that she has beenunable to ambulate due to pain since admission. Objective: Physical Examination Vitals: pls see below General: NAD, lying comfortably in bed, chronically ill appearing HEENT: alopecia, dermatologic manifestations of AML Lungs: CTA B/L Abd: soft, NT, +BS CVS; s1, s2 regular, no rub murmur or gallop Ext: no edema,bandaged chronic wounds. A/P: 63 yo female pending placement #Leukocytosis -resolved, afebrile -Infectious disease consulted, appreciate their help-no abx for now as stated above #Chronic wounds -Continue dressing changes and wound care -wound consult telemedicine with Dr. Herrera-appreciate his help -pain management consulted-have implemented their recommendations # Acute on chronic pain. -Continue current regimen -pain mgmt has evaluated the patient, their recommendations have been imple mented #Debility -PFS consult placed, pt may likely need home services or possible snf placement -Pt has been unable to care for self at home, not eating, not drinking well -belt brander consult placed to make sure she is getting adequate nutritional needs-c/w Ensure TID -PT/OT ordered but patient refusing to work with them #H/O Acute myeloid leukemia (AML) status post stem cell transplantation in 2012 with chronic aerup-vfmwby-lwwx disease, with mostly skin manifestation -Patient follows with Dr. Morgan, [facility] oncology. -Pt. receives apheresis and chemotherapy treatments to her Czxtaa-o-Pclp spoken with Dr. morgan her long-term oncologist regarding her care she is in agreement with all of our plans of care thus far. - Patient states she contacted Dr. Morgan's office, with instructions to contact office on discharge, no further recs regarding apharesis -Further management as per Oncology [facility] -Continue Tacrolimus -Patient remains on Medrol 4 mg by mouth daily -Infuse aport has been evaluated by Dr. Priest, per note limited use only for now--for chemotherapy and pheresis, high infection risk. Appreciate his help. #GERD -Continue Protonix. #Hypertension -stable -Continue Toprol-XL 25 mg by mouth daily with hold parameters. #Chronic anemia - slowly trending down - continue to monitor -s/p 2 units pRBC -iron studies demonstrate possibly AOCD -Continue vitamin B12 supplements -Continue folic acid supplements #Depression - psych c/s appreciated #Constipation -c/w scheduled bowel regimen medications especially in light of pain medication use Dispo: Pending placement VS, I&O, 24H, Fishbone Vital Signs/I&O Vital Signs Date Time Temp Pulse Resp B/P (MAP) Pulse Ox O2 Delivery O2 Flow Rate FiO2 04/19/18 18:00 16 04/19/18 17:18 98.7 97 111/59 (76) 97 Room Air I&O- Last 24 Hours up to 6 AM 04/19/18 05:59 Intake Total 1100 ml Output Total 900 ml Balance 200 ml LUPIS ARREGUIN MD Apr 19, 2018 20:26
[2018-04-20] MEDS: oxyCODONE 5MG TAB PO PRN ×3 (05:01→17:14)
[2018-04-20] MEDS: CHOLESTYRAMINE 4 GM PWD PKT PO SCH ×2 (05:01→16:31)
[2018-04-20 06:00] VITALS: BP 106/52
[2018-04-20] MEDS: MORPHINE 10MG/0.5ML ORAL CONCENTRATE SOLUTION U/D SL PRN ×2 (06:58→14:42)
[2018-04-20] MEDS: IMBRUVICA 140 MG PO SCH (09:00)
[2018-04-20] MEDS: METOPROLOL SUCC *XL* 25MG TAB (TopROL *XL*) PO SCH (09:00)
[2018-04-20] MEDS: LACTOBACILLUS ACIDOPHILUS CAP (BACID) PO SCH ×3 (09:05→21:52)
[2018-04-20] MEDS: PANTOPRAZOLE 40MG TAB (PROTONIX) PO SCH ×2 (09:05→21:52)
[2018-04-20] MEDS: FOLIC ACID 1 MG TAB PO SCH (09:05)
[2018-04-20] MEDS: FERROUS SULFATE 325MG TAB PO SCH (09:05)
[2018-04-20] MEDS: CYANOCOBALAMIN 500 MCG TAB PO SCH (09:05)
[2018-04-20] MEDS: GABAPENTIN 100 MG CAP PO SCH ×3 (09:05→21:53)
[2018-04-20] MEDS: methylPREDNISolone 4 MG TAB PO SCH (09:05)
[2018-04-20] MEDS: TACROLIMUS 0.5 MG CAP PO SCH ×2 (09:05→21:52)
[2018-04-20] MEDS: OMEGA-3 1000MG CAPSULE PO SCH (09:05)
[2018-04-20] MEDS: buPROPion (WELLBUTRIN SR) 100 MG SR TAB PO SCH ×2 (09:06→21:53)
[2018-04-20] MEDS: VITAMIN D 1,000 INTERNATIONAL UNITS TABLET PO SCH (09:06)
[2018-04-20] MEDS: EUCERIN 120GM CREAM TOP SCH ×2 (09:07→21:54)
[2018-04-20] MEDS: POLYVINYL ALCOHOL OPHTH SOLN 15 ML(LIQUITEARS) OU SCH ×4 (09:07→21:53)
[2018-04-20] MEDS: MORPHINE 15 MG SA TAB PO SCH ×2 (09:07→21:55)
[2018-04-20] MEDS: DIAPER RELIEF PASTE (DESITIN) 60GM TOP SCH (09:07)
--- NOTE | 2018-04-20 16:18 | CR ---
DATE OF CONSULTATION: 04/20/2018 HISTORY OF PRESENT ILLNESS: Gauri is a 63-year-old female who we saw initially at the beginning of her hospital stay for severe lower extremity pain with a history of multiple open leg wounds. She was on chronic opioid therapy when she entered the hospital. They increase her fentanyl to 75 mcg and this was done a few weeks ago. She is also using Roxanol 5 mg every four and oxycodone 10 mg every four as needed. She is crying today in pain. States her pain is from the knee down and describes pain as burning. ASSESSMENT: Uncontrolled lower extremity pain. PLAN: I would recommend discontinuing oxycodone 10 mg and trying Nucynta short-acting 100 mg every four hours as needed for severe pain. Nucynta seems to have better coverage for neuropathic pain. I would recommend continuing Roxanol if needed as well as fentanyl patch. Please do not hesitate to contact us if her pain remains uncontrolled. MTDD
[2018-04-20] MEDS: ONDANSETRON 4 MG TAB (S0181) PO PRN (17:14)
[2018-04-20] MEDS: clonazePAM 1 MG TAB PO PRN (21:52)
[2018-04-20] MEDS: ENOXAPARIN 30 MG/0.3 ML SYR (J1650) SC SCH (21:53)
[2018-04-21] MEDS: CHOLESTYRAMINE 4 GM PWD PKT PO SCH ×2 (05:03→17:22)
[2018-04-21] MEDS: oxyCODONE 5MG TAB PO PRN (05:04)
[2018-04-21 06:00] VITALS: BP 99/53
[2018-04-21] MEDS: MORPHINE 15 MG SA TAB PO SCH ×2 (08:00→20:24)
[2018-04-21 09:00] VITALS: BP 93/58
[2018-04-21 10:28] VITALS: BP 109/62
[2018-04-21] MEDS: TAPENTADOL 50 MG TABLET (NUCYNTA) PO PRN ×3 (10:30→21:57)
[2018-04-21] MEDS: EUCERIN 120GM CREAM TOP SCH ×2 (10:35→20:24)
[2018-04-21] MEDS: POLYVINYL ALCOHOL OPHTH SOLN 15 ML(LIQUITEARS) OU SCH ×4 (10:35→20:24)
[2018-04-21] MEDS: FERROUS SULFATE 325MG TAB PO SCH (10:36)
[2018-04-21] MEDS: OMEGA-3 1000MG CAPSULE PO SCH (10:36)
[2018-04-21] MEDS: buPROPion (WELLBUTRIN SR) 100 MG SR TAB PO SCH ×2 (10:36→20:23)
[2018-04-21] MEDS: PANTOPRAZOLE 40MG TAB (PROTONIX) PO SCH ×2 (10:36→20:24)
[2018-04-21] MEDS: methylPREDNISolone 4 MG TAB PO SCH (10:37)
[2018-04-21] MEDS: TACROLIMUS 0.5 MG CAP PO SCH ×2 (10:37→20:24)
[2018-04-21] MEDS: CYANOCOBALAMIN 500 MCG TAB PO SCH (10:37)
[2018-04-21] MEDS: GABAPENTIN 100 MG CAP PO SCH ×3 (10:37→20:24)
[2018-04-21] MEDS: VITAMIN D 1,000 INTERNATIONAL UNITS TABLET PO SCH (10:38)
[2018-04-21] MEDS: LACTOBACILLUS ACIDOPHILUS CAP (BACID) PO SCH ×3 (10:38→20:23)
[2018-04-21] MEDS: FOLIC ACID 1 MG TAB PO SCH (10:38)
[2018-04-21] MEDS: METOPROLOL SUCC *XL* 25MG TAB (TopROL *XL*) PO SCH (10:39)
[2018-04-21] MEDS: IMBRUVICA 140 MG PO SCH (10:39)
[2018-04-21 14:00] VITALS: BP 107/63
[2018-04-21] MEDS: MORPHINE 10MG/0.5ML ORAL CONCENTRATE SOLUTION U/D SL PRN ×2 (14:09→17:22)
[2018-04-21] MEDS: clonazePAM 1 MG TAB PO PRN (14:13)
[2018-04-21] MEDS: ENOXAPARIN 30 MG/0.3 ML SYR (J1650) SC SCH (20:23)
[2018-04-22] MEDS: TAPENTADOL 50 MG TABLET (NUCYNTA) PO PRN ×4 (03:33→23:48)
[2018-04-22] MEDS: CHOLESTYRAMINE 4 GM PWD PKT PO SCH ×2 (04:38→17:00)
[2018-04-22 06:00] VITALS: BP 128/63
[2018-04-22] MEDS: MORPHINE 10MG/0.5ML ORAL CONCENTRATE SOLUTION U/D SL PRN (06:48)
[2018-04-22] MEDS: IMBRUVICA 140 MG PO SCH (09:00)
[2018-04-22] MEDS: MORPHINE 15 MG SA TAB PO SCH ×2 (10:04→20:41)
[2018-04-22] MEDS: fentaNYL 75 MCG/HR PATCH TD SCH (10:04)
[2018-04-22] MEDS: LACTOBACILLUS ACIDOPHILUS CAP (BACID) PO SCH ×3 (10:05→20:42)
[2018-04-22] MEDS: TACROLIMUS 0.5 MG CAP PO SCH ×2 (10:05→20:43)
[2018-04-22] MEDS: GABAPENTIN 100 MG CAP PO SCH ×3 (10:05→20:42)
[2018-04-22] MEDS: buPROPion (WELLBUTRIN SR) 100 MG SR TAB PO SCH ×2 (10:06→20:42)
[2018-04-22] MEDS: FERROUS SULFATE 325MG TAB PO SCH (10:06)
[2018-04-22] MEDS: CYANOCOBALAMIN 500 MCG TAB PO SCH (10:06)
[2018-04-22] MEDS: FOLIC ACID 1 MG TAB PO SCH (10:07)
[2018-04-22] MEDS: methylPREDNISolone 4 MG TAB PO SCH (10:07)
[2018-04-22] MEDS: PANTOPRAZOLE 40MG TAB (PROTONIX) PO SCH ×2 (10:07→20:43)
[2018-04-22] MEDS: METOPROLOL SUCC *XL* 25MG TAB (TopROL *XL*) PO SCH (10:08)
[2018-04-22] MEDS: VITAMIN D 1,000 INTERNATIONAL UNITS TABLET PO SCH (10:08)
[2018-04-22] MEDS: EUCERIN 120GM CREAM TOP SCH ×2 (10:09→20:43)
[2018-04-22] MEDS: OMEGA-3 1000MG CAPSULE PO SCH (10:09)
[2018-04-22] MEDS: DIAPER RELIEF PASTE (DESITIN) 60GM TOP SCH (10:10)
[2018-04-22] MEDS: POLYVINYL ALCOHOL OPHTH SOLN 15 ML(LIQUITEARS) OU SCH ×4 (10:10→20:43)
[2018-04-22] MEDS: MULTIVITAMINS/MINERALS THERAP 1 TAB PO SCH (16:58)
[2018-04-22] MEDS: ENOXAPARIN 30 MG/0.3 ML SYR (J1650) SC SCH (20:42)
[2018-04-22] MEDS: PENICILLIN V POTASSIUM 500 MG TAB PO SCH (20:42)
[2018-04-22] MEDS: clonazePAM 1 MG TAB PO PRN (20:43)
[2018-04-22] MEDS: ADVAIR HFA 115/21MCG INHALER INH SCH (21:01)
[2018-04-23] MEDS: CHOLESTYRAMINE 4 GM PWD PKT PO SCH ×2 (05:47→16:16)
[2018-04-23 06:00] VITALS: BP 104/66
[2018-04-23] MEDS: TAPENTADOL 50 MG TABLET (NUCYNTA) PO PRN ×4 (06:07→21:21)
[2018-04-23] MEDS: ADVAIR HFA 115/21MCG INHALER INH SCH ×2 (08:02→20:01)
[2018-04-23] MEDS: IMBRUVICA 140 MG PO SCH (09:00)
[2018-04-23] MEDS: LACTOBACILLUS ACIDOPHILUS CAP (BACID) PO SCH ×3 (09:44→19:48)
[2018-04-23] MEDS: FERROUS SULFATE 325MG TAB PO SCH (09:45)
[2018-04-23] MEDS: MULTIVITAMINS/MINERALS THERAP 1 TAB PO SCH (09:45)
[2018-04-23] MEDS: GABAPENTIN 100 MG CAP PO SCH ×3 (09:45→19:48)
[2018-04-23] MEDS: TACROLIMUS 0.5 MG CAP PO SCH ×2 (09:45→19:49)
[2018-04-23] MEDS: VITAMIN D 1,000 INTERNATIONAL UNITS TABLET PO SCH (09:45)
[2018-04-23] MEDS: PENICILLIN V POTASSIUM 500 MG TAB PO SCH ×2 (09:45→19:48)
[2018-04-23] MEDS: OMEGA-3 1000MG CAPSULE PO SCH (09:45)
[2018-04-23] MEDS: FOLIC ACID 1 MG TAB PO SCH (09:45)
[2018-04-23] MEDS: METOPROLOL SUCC *XL* 25MG TAB (TopROL *XL*) PO SCH (09:45)
[2018-04-23] MEDS: PANTOPRAZOLE 40MG TAB (PROTONIX) PO SCH ×2 (09:45→19:48)
[2018-04-23] MEDS: methylPREDNISolone 4 MG TAB PO SCH (09:45)
[2018-04-23] MEDS: CYANOCOBALAMIN 500 MCG TAB PO SCH (09:46)
[2018-04-23] MEDS: buPROPion (WELLBUTRIN SR) 100 MG SR TAB PO SCH ×2 (09:46→19:48)
[2018-04-23] MEDS: MORPHINE 15 MG SA TAB PO SCH ×2 (09:46→19:49)
[2018-04-23] MEDS: EUCERIN 120GM CREAM TOP SCH ×2 (09:47→19:50)
[2018-04-23] MEDS: POLYVINYL ALCOHOL OPHTH SOLN 15 ML(LIQUITEARS) OU SCH ×4 (09:47→19:50)
[2018-04-23 14:00] VITALS: BP 114/61
[2018-04-23] MEDS: ENOXAPARIN 30 MG/0.3 ML SYR (J1650) SC SCH (19:49)
[2018-04-23] MEDS: ACETAMINOPHEN TAB 650MG DOSE (2X325MG) PO PRN (23:45)
[2018-04-23] MEDS: MORPHINE 10MG/0.5ML ORAL CONCENTRATE SOLUTION U/D SL PRN (23:46)
[2018-04-24] MEDS: TAPENTADOL 50 MG TABLET (NUCYNTA) PO PRN ×4 (05:09→22:24)
[2018-04-24] MEDS: CHOLESTYRAMINE 4 GM PWD PKT PO SCH ×2 (05:09→16:22)
[2018-04-24 06:00] VITALS: BP 114/61
[2018-04-24] MEDS: IMBRUVICA 140 MG PO SCH (09:00)
[2018-04-24] MEDS: FERROUS SULFATE 325MG TAB PO SCH (09:51)
[2018-04-24] MEDS: TACROLIMUS 0.5 MG CAP PO SCH ×2 (09:51→20:27)
[2018-04-24] MEDS: OMEGA-3 1000MG CAPSULE PO SCH (09:51)
[2018-04-24] MEDS: PANTOPRAZOLE 40MG TAB (PROTONIX) PO SCH ×2 (09:51→20:28)
[2018-04-24] MEDS: LACTOBACILLUS ACIDOPHILUS CAP (BACID) PO SCH ×3 (09:51→20:28)
[2018-04-24] MEDS: MULTIVITAMINS/MINERALS THERAP 1 TAB PO SCH (09:51)
[2018-04-24] MEDS: FOLIC ACID 1 MG TAB PO SCH (09:51)
[2018-04-24] MEDS: METOPROLOL SUCC *XL* 25MG TAB (TopROL *XL*) PO SCH (09:52)
[2018-04-24] MEDS: GABAPENTIN 100 MG CAP PO SCH ×3 (09:52→20:27)
[2018-04-24] MEDS: PENICILLIN V POTASSIUM 500 MG TAB PO SCH ×2 (09:52→20:28)
[2018-04-24] MEDS: CYANOCOBALAMIN 500 MCG TAB PO SCH (09:52)
[2018-04-24] MEDS: VITAMIN D 1,000 INTERNATIONAL UNITS TABLET PO SCH (09:52)
[2018-04-24] MEDS: buPROPion (WELLBUTRIN SR) 100 MG SR TAB PO SCH ×2 (09:52→20:27)
[2018-04-24] MEDS: EUCERIN 120GM CREAM TOP SCH ×2 (09:53→20:29)
[2018-04-24] MEDS: MORPHINE 15 MG SA TAB PO SCH ×2 (09:53→20:27)
[2018-04-24] MEDS: methylPREDNISolone 4 MG TAB PO SCH (09:53)
[2018-04-24] MEDS: POLYVINYL ALCOHOL OPHTH SOLN 15 ML(LIQUITEARS) OU SCH ×4 (09:53→20:29)
[2018-04-24] MEDS: DIAPER RELIEF PASTE (DESITIN) 60GM TOP SCH (09:53)
[2018-04-24] MEDS: ADVAIR HFA 115/21MCG INHALER INH SCH ×2 (10:16→21:32)
[2018-04-24] MEDS: clonazePAM 1 MG TAB PO PRN (13:26)
[2018-04-24] MEDS: MORPHINE 10MG/0.5ML ORAL CONCENTRATE SOLUTION U/D SL PRN (16:50)
[2018-04-24] MEDS: ENOXAPARIN 30 MG/0.3 ML SYR (J1650) SC SCH (20:28)
[2018-04-25] MEDS: clonazePAM 1 MG TAB PO PRN (00:54)
[2018-04-25] MEDS: MORPHINE 10MG/0.5ML ORAL CONCENTRATE SOLUTION U/D SL PRN (00:56)
[2018-04-25] MEDS: TAPENTADOL 50 MG TABLET (NUCYNTA) PO PRN ×2 (03:48→10:41)
[2018-04-25 06:00] VITALS: BP 109/63
[2018-04-25] MEDS: CHOLESTYRAMINE 4 GM PWD PKT PO SCH (06:34)
[2018-04-25] MEDS: ADVAIR HFA 115/21MCG INHALER INH SCH (08:39)
[2018-04-25] MEDS: OMEGA-3 1000MG CAPSULE PO SCH (08:43)
[2018-04-25] MEDS: LACTOBACILLUS ACIDOPHILUS CAP (BACID) PO SCH (08:43)
[2018-04-25] MEDS: PANTOPRAZOLE 40MG TAB (PROTONIX) PO SCH (08:43)
[2018-04-25] MEDS: buPROPion (WELLBUTRIN SR) 100 MG SR TAB PO SCH (08:43)
[2018-04-25] MEDS: CYANOCOBALAMIN 500 MCG TAB PO SCH (08:43)
[2018-04-25] MEDS: FERROUS SULFATE 325MG TAB PO SCH (08:43)
[2018-04-25] MEDS: MULTIVITAMINS/MINERALS THERAP 1 TAB PO SCH (08:43)
[2018-04-25 08:44] VITALS: BP 115/66
[2018-04-25] MEDS: methylPREDNISolone 4 MG TAB PO SCH (08:44)
[2018-04-25] MEDS: VITAMIN D 1,000 INTERNATIONAL UNITS TABLET PO SCH (08:44)
[2018-04-25] MEDS: METOPROLOL SUCC *XL* 25MG TAB (TopROL *XL*) PO SCH (08:44)
[2018-04-25] MEDS: PENICILLIN V POTASSIUM 500 MG TAB PO SCH (08:44)
[2018-04-25] MEDS: MORPHINE 15 MG SA TAB PO SCH (08:45)
[2018-04-25] MEDS: FOLIC ACID 1 MG TAB PO SCH (08:45)
[2018-04-25] MEDS: GABAPENTIN 100 MG CAP PO SCH (08:45)
[2018-04-25] MEDS: TACROLIMUS 0.5 MG CAP PO SCH (08:45)
[2018-04-25] MEDS: fentaNYL 75 MCG/HR PATCH TD SCH (08:46)
[2018-04-25] MEDS: EUCERIN 120GM CREAM TOP SCH (08:47)
[2018-04-25] MEDS: POLYVINYL ALCOHOL OPHTH SOLN 15 ML(LIQUITEARS) OU SCH (08:47)
[2018-04-25] MEDS: FENTANYL REMOVAL DOCUMENTATION MISC XX SCH (08:47)
[2018-04-25] MEDS: IMBRUVICA 140 MG PO SCH (08:48)
[2018-04-25] MEDS ORDERED: DURA75DI2 TD (09:06)
[2018-04-25] MEDS ORDERED: MORP20SO3 SL (09:06)
[2018-04-25] MEDS ORDERED: NUCY50TA6 PO (09:06)
[2018-04-25] MEDS ORDERED: MORP15TASA PO (09:06)
--- NOTE | 2018-04-27 06:13 | IPNPDOC ---
Text Note Date of Service The patient was seen on 04/13/18. NOTE Subjective: Patient seen and examined at bedside. No acute overnight events reported. Did not offer any complaints . Except that she is very weak. However she said that she has made some pregress with PT and has been sitting at the side of the bed. She is able to move her legs a little bit also. Objective: General: NAD, lying comfortably in bed, chronically ill appearing HEENT: alopecia, dermatologic manifestations of AML Lungs: CTA B/L Abd: soft, NT, +BS CVS; s1, s2 regular, no rub murmur or gallop Ext: no edema, A/P: 63 yo female pending placement #Debility -Pt has been unable to care for self at home, not eating, not drinking well -dovetailer consult placed to make sure she is getting adequate nutritional needs-c/w Ensure TID -PT/OT ordered but patient refusing to work with them . For ferry terminal agent placement. #H/O Acute myeloid leukemia (AML) status post stem cell transplantation in 2012 with chronic lqxir-frjnkj-vvnw disease, with mostly skin manifestation -Patient follows with Dr. Morgan, [facility] oncology. -Pt. receives apheresis and chemotherapy treatments to her Rhtdxy-m-Papg spoken with Dr. morgan her long-term oncologist regarding her care she is in agreement with all of our plans of care thus far. - Patient states she contacted Dr. Morgan's office, with instructions to contact office on discharge, no further recs regarding apharesis -Further management as per Oncology [facility] -Continue Tacrolimus -Patient remains on Medrol 4 mg by mouth daily -Infuse aport has been evaluated by Dr. Priest, per note limited use only for now--for chemotherapy and pheresis, high infection risk. Appreciate his help. #Leukocytosis -resolved, afebrile -Infectious disease consulted, appreciate their help-no abx #Chronic wounds -Continue dressing changes and wound care -wound consult telemedicine with Dr. Herrera-appreciate his help -pain management consulted-have implemented their recommendations # Acute on chronic pain. -Continue current regimen -pain mgmt has evaluated the patient, their recommendations have been implemented #GERD -Continue Protonix. #Hypertension -stable -Continue Toprol-XL 25 mg by mouth daily with hold parameters. #Chronic anemia - slowly trending down - continue to monitor -s/p 2 units pRBC -iron studies noted. -Continue vitamin B12 supplements -Continue folic acid supplements #Depression - psych c/s appreciated #Constipation -c/w scheduled bowel regimen medications especially in light of pain medication use Dispo: Pending placement VS,Fishbone, I+O VS, Fishbone, I+O Vital Signs Date Time Temp Pulse Resp B/P (MAP) Pulse Ox O2 Delivery O2 Flow Rate FiO2 04/16/18 08:44 18 04/16/18 08:42 76 104/64 04/16/18 06:00 97.6 96 Room Air I&O- Last 24 Hours up to 6 AM 04/16/18 06:00 Intake Total 2160 ml Output Total 1100 ml Balance 1060 ml GAEL FARR MD Apr 16, 2018 09:09
--- NOTE | 2018-05-09 07:23 | DS.PDOC ---
Discharge Summary General Date of Admission Mar 22, 2018 at 22:22 Date of Discharge 04/26/18 Discharge Summary CONSULTANTS: thoracic surgery Dr. Priest [facility] Infectious Disease [facility] Psychiatrist: Dr. Linares Discharge Diagnoses: Chronic Lower extremity wounds Chronic LE pain AML, S/P Stem cell transplant 2012, GVHD Depression Htn GERD Discharge Medications: pls see below Hospital course: 63year oldF who has extensive PMH, including AML, S/P Stem cell transplant 2012, GVHD, who follows Q2 weekly for apheresis at [facility] Oncology. The pt was brought in by family related to depression, poor po intake, not taking her meds, generally not acting herself. #Leukocytosis-resolved, afebrile- Infectious disease consulted, appreciate their help-no abx for now as stated above#Chronic wounds-Continue dressing changes and wound care-wound consult telemedicine with Dr. Herrera-appreciate his help-pain management consulted- have implemented their recommendations-Pt complained of bilateral LE pain especially during dressing changes, not improved with current pain meds. She continues to have persistent pain keeping her from sleeping well at night. She states that she has beenunable to ambulate due to pain since admission. # Acute on chronic pain. 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 Morgan, [facility] oncology.-Pt. receives apheresis and chemotherapy treatments to her Rfteez-i-Xcqw spoken with Dr. morgan her long- term oncologist regarding her care she is in agreement with all of our plans of care thus far.- Patient states she contacted Dr. Morgan's office, with instructions to contact office on discharge, no further recs regarding apharesis-Further management as per Oncology [facility] -Continue Tacrolimus-Patie nt remains on Medrol 4 mg by mouth daily-Infuse aport has been evaluated by Dr. Priest, per note limited use only for now--for chemotherapy and pheresis, high infection risk. Appreciate his help.#GERD-Continue Protonix.#Dgleuhxsrjtf-lgukxj-Cwifktyx Toprol-XL 25 mg by mouth daily with hold parameters.#Chronic anemia- slowly trending down - continue to monitor-s/p 2 units pRBC-iron studies demonstrate possibly AOCD-Continue vitamin B12 supplements-Continue folic acid supplements#Depression - psych c/s appreciated#Constipation-c/w scheduled bowel regimen medications especially in light of pain medication use Discharge Physical Examination Vitals: pls see below General: NAD, lying comfortably in bed, chronically ill appearing HEENT: alopecia, dermatologic manifestations of AML Lungs: CTA B/L Abd: soft, NT, +BS CVS; s1, s2 regular, no rub murmur or gallop Ext: no edema,bandaged chronic wounds. Laboratory Data, Imaging studies, Microbiology: pls see below. Time spent on discharge: 30 min. Discharge Medications Scheduled (Citracal + D3 Maximum 315-250 mg-Unit) 1 Tab Tab, 1 TAB PO QID, (Reported) (Multivitamins) 1 Cap Cap, 1 CAP PO DAILY, (Reported) (Flax Seed Oil 1000 mg) 1 Cap Cap, 1 CAP PO DAILY, (Reported) (mg-Plus Protein 133 mg) 1 Tab Tab, 1 TAB PO DAILY, (Reported) (mg-Plus Protein 133 mg) 1 Tab Tab, 2 TAB PO TID, (Reported) LUNCH, DINNER, QHS (Acidophilus Probiotic) 100 Mg Cap, 100 MG PO TID, (Reported) (Restasis) 0.05 % Emu, 1 DROP OU BID, (Reported) Bupropion HCl (Bupropion HCl ER) 200 Mg Tab, 200 MG PO BID for depression Cholecalciferol (Vitamin D) 1,000 Unit Tab, 5,000 UNIT PO DAILY, (Reported) Cholecalciferol (Vitamin D3) 2,000 Unit Cap, 2,000 UNIT PO DAILY, (Reported) Cholecalciferol (D3-50) 50,000 Unit Cap, 50,000 UNIT PO QWEEK, (Reported) Cholestyramine (Cholestyramine) 4 Gm Pow, 4 GM PO BID, (Reported) Cyanocobalamin (Vitamin B12) 1,000 Mcg Tab, 1,000 MCG PO DAILY, (Reported) Fish Oil (Fish Oil) 1,000 Mg Cap, 1,000 MG PO DAILY, (Reported) Folic Acid (Folic Acid) 1 Mg Tab, 1 MG PO DAILY, (Reported) Gabapentin (Gabapentin) 100 Mg Cap, 100 MG PO TID for pain/anxiety Lactobacillus Acidophilus (Bacid) 1 Tab Tab, 2 TABS PO TID, (Reported) Methylprednisolone (Methylprednisolone) 4 Mg Tab, 4 MG PO DAILY, (Reported) Metoprolol Succinate (Metoprolol Succinate ER) 25 Mg Tab, 25 MG PO DAILY, (Reported) Morphine Sulfate (Morphine Sulfate ER) 15 Mg Tabcr, 15 MG PO BID Pantoprazole Sodium Sesquihydr (Protonix) 40 Mg Tab, 40 MG PO BID, (Reported) Penicillin V Potassium (Penicillin V Potassium) 500 Mg Tab, 500 MG PO BID, (Reported) Salmeterol/Fluticasone (Advair Diskus 100-50 Mcg/Dose) 28 Puff/Inhaler Aerp, 1 PUFF INH BID, (Reported) Tacrolimus (Protopic) 0.1 % Oin, 1 DOSE TOP BID, (Reported) Tacrolimus (Tacrolimus) 0.5 Mg Cap, 0.5 MG PO BID, (Reported) Scheduled PRN (Systane Preservative Free 0.4-0.3 %) 1 Liz Liz, 1 DROP OU Q1H PRN for DRY EYES, (Reported) Acetaminophen (Tylenol) 325 Mg Tab, 650 MG PO Q4H PRN for PAIN, (Reported) Artificial Tears (Akwa Tears) 1.4 % Liz, 2 DROP OU QID PRN for DRY EYES, (Reported) Clonazepam (Clonazepam) 0.5 Mg Tab, 1 MG PO BID PRN for ANXIETY Fentanyl (Duragesic) 50 Mcg/Hr Dis, 50 MCG TD Q3D PRN for PAIN, (Reported) Guaifenesin (Guaifenesin) 100 Mg/5 Ml Syp, 20 ML PO QID PRN for COUGH, (Reported) Lactase (Lactaid) 3,000 Unit Tab, 3,000 UNIT PO TID PRN for INDIGESTION, (Reported) Loperamide HCl (Loperamide HCl) 2 Mg Cap, 4 MG PO QID PRN for AFTER EACH LOOSE STOOL, (Reported) Morphine Sulfate (Morphine Sulfate) 100 Mg/5 Ml Liz, 5 MG SL Q3HP PRN for PAIN Oxycodone HCl (Oxycodone HCl) 5 Mg Tab, 10 MG PO Q6H PRN for PAIN, (Reported) Simethicone (Simethicone) 80 Mg Chew, 80 MG PO QID PRN for GAS PAIN, (Reported) Tapentadol Hydrochloride (Nucynta) 50 Mg Tab, 100 MG PO Q4HP PRN for PAIN Trazodone HCl (Trazodone HCl) 50 Mg Tab, 50 MG PO QHSP PRN for INSOMNIA Allergies Coded Allergies: No Known Allergies (Verified , 03/22/18) LUPIS ARREGUIN MD May 09, 2018 07:17
== END 2018-04-25 11:20 | DRG 920 ==
LOC: EDBD 13:21 → M ED 13:21 → EEVIPCON 22:22 → M ED INP 22:22 → M MS5PR 03-24 12:30
PROVIDERS: ADMIT Psychiatry & Neurology Psychiatry; ATTEND General Practice
PROC: 30233N1 Transfusion of Nonautologous Red Blood Cells into Peripheral Vein, Percutaneous Approach (ICD-10-PCS; principal; 2018-03-24)
DX: T86.5 Complications of stem cell transplant (principal); D89.813 Graft-versus-host disease, unspecified; L97.929 Non-pressure chronic ulcer of unspecified part of left lower leg with unspecified severity; L97.919 Non-pressure chronic ulcer of unspecified part of right lower leg with unspecified severity; C92.90 Myeloid leukemia, unspecified, not having achieved remission; Z94.84 Stem cells transplant status; D64.9 Anemia, unspecified; M79.661 Pain in right lower leg; M79.662 Pain in left lower leg; F32.9 Major depressive disorder, single episode, unspecified; K21.9 Gastro-esophageal reflux disease without esophagitis; K59.00 Constipation, unspecified; Z79.899 Other long term (current) drug therapy; F41.9 Anxiety disorder, unspecified; I10 Essential (primary) hypertension; E56.0 Deficiency of vitamin E; G89.29 Other chronic pain; Y83.0 Surgical operation with transplant of whole organ as the cause of abnormal reaction of the patient, or of later complication, without mention of misadventure at the time of the procedure

== ENCOUNTER → 2018-05-03 | Outpatient (REF) ==
[2018-05-03 10:14] LABS: HEMATOCRIT 28.6 % (36.0-47.0); HEMOGLOBIN 8.8 g/dl (12.0-15.5); MEAN CORPUSCULAR HGB CONC 30.8 g/dl (32.0-36.5); MEAN CORPUSCULAR VOLUME 91.1 fl (80.0-96.0); PLATELET COUNT, AUTOMATED 455 10^3/uL (150-450); RED BLOOD COUNT 3.14 10^6/uL (4.00-5.40); RED CELL DISTRIBUTION WIDTH 20.3 % (11.5-14.5); WHITE BLOOD COUNT 13.1 10^3/uL (4.0-10.0)
[2018-05-03 10:29] LABS: ANION GAP 6 MEQ/L (8-16); BLOOD UREA NITROGEN 30 MG/DL (7-18); CALCIUM LEVEL 7.9 MG/DL (8.8-10.2); CARBON DIOXIDE LEVEL 33 MEQ/L (21-32); CHLORIDE LEVEL 102 MEQ/L (98-107); CREATININE FOR GFR 0.46 MG/DL (0.55-1.30); GLOMERULAR FILTRATION RATE > 60.0 (>45); GLUCOSE, FASTING 68 MG/DL (70-100); POTASSIUM SERUM 4.9 MEQ/L (3.5-5.1); SODIUM LEVEL 141 MEQ/L (136-145)
== END ==
DX: C92.00 Acute myeloblastic leukemia, not having achieved remission (principal)

== ENCOUNTER → 2018-05-05 | Outpatient (REF) ==
[2018-05-05 18:55] LABS: ANION GAP 5 MEQ/L (8-16); BLOOD UREA NITROGEN 36 MG/DL (7-18); CALCIUM LEVEL 8.6 MG/DL (8.8-10.2); CARBON DIOXIDE LEVEL 34 MEQ/L (21-32); CHLORIDE LEVEL 100 MEQ/L (98-107); CREATININE FOR GFR 0.49 MG/DL (0.55-1.30); GLOMERULAR FILTRATION RATE > 60.0 (>45); GLUCOSE, FASTING 97 MG/DL (70-100); SODIUM LEVEL 139 MEQ/L (136-145)
[2018-05-05 18:58] LABS: HEMATOCRIT 33.5 % (36.0-47.0); HEMOGLOBIN 10.1 g/dl (12.0-15.5); MEAN CORPUSCULAR HGB CONC 30.1 g/dl (32.0-36.5); MEAN CORPUSCULAR VOLUME 92.8 fl (80.0-96.0); PLATELET COUNT, AUTOMATED 516 10^3/uL (150-450); RED BLOOD COUNT 3.61 10^6/uL (4.00-5.40); RED CELL DISTRIBUTION WIDTH 19.8 % (11.5-14.5)
[2018-05-20 00:08] LABS: 6-Acetylmorphine Negative (.); Codeine Negative (.); Dihydrocodeine Negative (.); Hydrocodone Negative (.); Hydromorphone Negative (.); Morphine 15.7 ng/mL (.); OXYCODONE SCREEN Negative ng/mL (Cutoff:5); Opiate Confirmation Positive (.)
== END ==
DX: R53.83 Other fatigue (principal)

== ENCOUNTER → 2018-05-06 | Outpatient (CLI) | payer MEDICARE ==
[~2018-05-06] MED LIST changes: +BUPR1TAB56 PO; +CIPR-250 PO; +DULC10SU2 PR; +DURA75DI2 TD; +ENEMENE16 PR; +ENSULIQ64 PO; +GUAI100S27 PO; +JUVEPOW PO; +MILK12002 PO; +MORP15TASA PO; +MORP20SO3 PO; +MORP20SO3 SL; +MS C15TA8 PO; +NUCY50TA6 PO; +TRAZO50TA PO
--- NOTE | 2018-05-06 13:44 | REP ---
MRI LUMBAR SPINE: HISTORY: Lower extremity neuropathy. Decreased signal intensity on T2 weighted images is present in the T12-L1 and L2-3 through L5-S1 intervertebral disc. The L2-3 through L4-5 intervertebral discs are decreased in height, theses are findings are consistent with disc degeneration. There is no disc bulge or herniation at the L1-2 level. There is hypertrophy of the posterior articulating facets. The L1 nerves exit the neural foramina without compression. A diffuse disc bulge is present at the L2-3 level. There is hypertrophy of the ligamenta flava and posterior articulating facets. These findings produce minimal central canal stenosis. There is compression of the right L2 nerve in the neural foramen. The left L2 nerve exit the neural foramen without compression. A diffuse disc bulge is present at the L3-4 level. There is hypertrophy of the ligamenta flava and posterior articulating facets. These findings produce minimal central canal stenosis. There L3 nerves exit the neural foramina without compression. A diffuse disc bulge and small central disc protrusion are present at the L4-5 level. There is hypertrophy of the ligamenta flava and posterior articulating facets. There are 3 mm of grade 1 spondylolisthesis of L4 on 5. These findings produce mild central canal stenosis. The L4 nerves exit the neural foramina without compression. A diffuse disc bulge is present at the L5-S1 level. This abut the thecal sac. There is hypertrophy of the posterior articulating facets. The L5 nerves exit the neural foramina without compression. The conus medullaris is normal in appearance terminating at the level of the L1-2 intervertebral disc. There are old compression fractures of the L1 through L5 vertebral bodies with minimal height loss. Normal signal intensity is present in the lumbar vertebral bodies. IMPRESSION: 1. Minimal central canal stenosis at the L2-3 and L3-4 levels secondary to disc bulge, ligamentous and facet hypertrophy. There is compression of the right L2 nerve in the neural foramen. 2. Mild central canal stenosis at the L4-5 level secondary to disc bulge, disc protrusion, ligamentous and facet hypertrophy and grade 1 spondylolisthesis. 3. Diffuse disc bulge at the L5-S1 level. This abuts the thecal sac. Electronically Signed by Asael Parks MD 05/06/2018 01:46 P
== END ==
LOC: M RAD 07:39
PROVIDERS: ATTEND Physician Assistant
DX: M79.2 Neuralgia and neuritis, unspecified (principal)

== ENCOUNTER → 2018-05-09 | Outpatient (REF) ==
[2018-05-09 13:38] LABS: MEAN CORPUSCULAR HEMOGLOBIN 28.1 pg (27.0-33.0); MEAN CORPUSCULAR HGB CONC 30.6 g/dl (32.0-36.5); MEAN CORPUSCULAR VOLUME 92.1 fl (80.0-96.0); PLATELET COUNT, AUTOMATED 546 10^3/uL (150-450); RED BLOOD COUNT 3.91 10^6/uL (4.00-5.40); RED CELL DISTRIBUTION WIDTH 19.6 % (11.5-14.5); WHITE BLOOD COUNT 15.4 10^3/uL (4.0-10.0)
[2018-05-09 14:02] LABS: ANION GAP 11 MEQ/L (8-16); BLOOD UREA NITROGEN 31 MG/DL (7-18); CALCIUM LEVEL 8.9 MG/DL (8.8-10.2); CARBON DIOXIDE LEVEL 28 MEQ/L (21-32); CHLORIDE LEVEL 103 MEQ/L (98-107); CREATININE FOR GFR 0.62 MG/DL (0.55-1.30); GLOMERULAR FILTRATION RATE > 60.0 (>45); GLUCOSE, FASTING 66 MG/DL (70-100); POTASSIUM SERUM 5.4 MEQ/L (3.5-5.1); SODIUM LEVEL 142 MEQ/L (136-145)
== END ==
DX: R41.82 Altered mental status, unspecified (principal)

== ENCOUNTER → 2018-05-10 | Outpatient (REF) ==
[2018-05-10 10:25] LABS: HEMATOCRIT 34.6 % (36.0-47.0); HEMOGLOBIN 10.6 g/dl (12.0-15.5); MEAN CORPUSCULAR HEMOGLOBIN 27.4 pg (27.0-33.0); MEAN CORPUSCULAR HGB CONC 30.6 g/dl (32.0-36.5); MEAN CORPUSCULAR VOLUME 89.4 fl (80.0-96.0); PLATELET COUNT, AUTOMATED 530 10^3/uL (150-450); RED BLOOD COUNT 3.87 10^6/uL (4.00-5.40); RED CELL DISTRIBUTION WIDTH 19.6 % (11.5-14.5); WHITE BLOOD COUNT 11.3 10^3/uL (4.0-10.0)
[2018-05-10 10:52] LABS: ANION GAP 9 MEQ/L (8-16); BLOOD UREA NITROGEN 40 MG/DL (7-18); CALCIUM LEVEL 8.5 MG/DL (8.8-10.2); CARBON DIOXIDE LEVEL 29 MEQ/L (21-32); CHLORIDE LEVEL 101 MEQ/L (98-107); CREATININE FOR GFR 0.59 MG/DL (0.55-1.30); GLOMERULAR FILTRATION RATE > 60.0 (>45); GLUCOSE, FASTING 48 MG/DL (70-100); POTASSIUM SERUM 4.9 MEQ/L (3.5-5.1); SODIUM LEVEL 139 MEQ/L (136-145)
[2018-05-10 14:08] LABS: AMORPHOUS SEDIMENT SMALL (NEGATIVE); APPEARANCE, URINE CLOUDY (CLEAR); BACTERIA, URINE AUTO NEGATIVE (NEGATIVE); BILIRUBIN, URINE AUTO NEGATIVE (NEGATIVE); BLOOD, URINE BLOOD NEGATIVE (NEGATIVE); COLOR, URINE YELLOW (YELLOW); GLUCOSE, URINE (UA) AUTO NEGATIVE (NEGATIVE); KETONE, URINE AUTO 1+ mg/dL (NEGATIVE); LEUKOCYTE ESTERASE, URINE AUTO TRACE (NEGATIVE); MUCUS, URINE SMALL (NEGATIVE); NITRITE, URINE AUTO POSITIVE (NEGATIVE); PROTEIN, URINE AUTO NEGATIVE (NEGATIVE); RBC, URINE AUTO 0 /HPF (0-3); SQUAMOUS EPITHELIAL CELL UR AU 0 /HPF (0-6); UROBILINOGEN, URINE AUTO 0.2 mg/dL (0.0-2.0); WBC, URINE AUTO 15 /HPF (0-3)
== END ==
DX: C92.00 Acute myeloblastic leukemia, not having achieved remission (principal)

== ENCOUNTER 2018-05-11 11:24 | Emergency (ER) | payer MEDICARE ==
[~2018-05-11] VITALS: Ht 157.5 cm; Wt 60.5 kg
[~2018-05-11 11:24] MED LIST changes: -CIPR-250 PO; -DULC10SU2 PR; -ENEMENE16 PR; -ENSULIQ64 PO; -JUVEPOW PO; -MILK12002 PO; -MORP20SO3 PO; -MS C15TA8 PO
[2018-05-11] MEDS ORDERED: NS 500 ML IV ONE (11:45)
--- NOTE | 2018-05-11 12:08 | REP ---
CT Head without contrast HISTORY: Altered mental status COMPARISON: 03/22/2018 Areas of decreased attenuation are present in the periventricular white matter. This represents small-vessel ischemic disease. There is no intraparenchymal hemorrhage, acute infarct, mass or midline shift. The ventricular system is normal in appearance. There is no extra cerebral collection. There is no fracture. The visualized sinuses are clear. IMPRESSION: Small vessel ischemic disease. Electronically Signed by Asael Parks MD 05/11/2018 11:59 A
[2018-05-11] MEDS ORDERED: PIPERACILLIN/TAZOBACTAM SOD 4.5 GM in D5W MINI-BAG PLUS 50 ML IV ONE (12:15)
[2018-05-11] MEDS ORDERED: D5W MINI IV SCH (12:15)
[2018-05-11] MEDS ORDERED: MICAFUNGIN SODIUM IV SCH (12:15)
--- NOTE | 2018-05-11 12:33 | REP ---
Chest one-view HISTORY: Altered mental status Comparison: 03/22/2018 The lungs are clear. The heart is normal in size. The pulmonary vasculature is normal in appearance. An Xuuhug-J-Cymv catheter is present. Impression: No acute disease. Electronically Signed by Asael Parks MD 05/11/2018 12:24 P
[2018-05-11] MEDS ORDERED: JUVEPOW PO (12:43)
[2018-05-11] MEDS ORDERED: MS C15TA8 PO (12:43)
[2018-05-11] MEDS ORDERED: BUPR200T PO (12:43)
[2018-05-11] MEDS ORDERED: VORI200T5 PO (12:54)
[2018-05-11] MEDS ORDERED: MORP20SO3 SL (12:54)
[2018-05-11] MEDS ORDERED: ACYC400T PO (12:54)
[2018-05-11] MEDS ORDERED: BACT800T5 PO (12:54)
[2018-05-11] MEDS ORDERED: ENSULIQ64 PO (12:54)
[2018-05-11 13:23] LABS: AMPHETAMINES LEVEL URINE NEGATIVE (NEGATIVE); BARBITURATES URINE NEGATIVE (NEGATIVE); BENZODIAZEPINES URINE NEGATIVE (NEGATIVE); CANNABINOIDS URINE NEGATIVE (NEGATIVE); COCAINE METABOLITE URINE NEGATIVE (NEGATIVE); METHADONE URINE NEGATIVE (NEGATIVE); OPIATES URINE POSITIVE (NEGATIVE); PHENCYCLIDINE URINE NEGATIVE (NEGATIVE)
[2018-05-11] MEDS ORDERED: MORP20SO3 PO (13:53)
[2018-05-11] MEDS ORDERED: MILK12002 PO (13:53)
[2018-05-11] MEDS ORDERED: DULC10SU2 PR (13:53)
[2018-05-11] MEDS ORDERED: ENEMENE16 PR (13:53)
[2018-05-11] MEDS ORDERED: CIPR-250 PO (13:53)
[2018-05-11 13:54] LABS: BASO % 0.2 % (0.0-1.0); EOS # 0.2 10^3/uL (0.0-0.50); EOS % 1.5 % (0.0-3.0); HEMATOCRIT 36.4 % (36.0-47.0); HEMOGLOBIN 11.2 g/dl (12.0-15.5); LYMPH # 1.5 10^3/uL (1.5-4.5); LYMPH % 14.4 % (24.0-44.0); MEAN CORPUSCULAR HEMOGLOBIN 27.7 pg (27.0-33.0); MEAN CORPUSCULAR HGB CONC 30.8 g/dl (32.0-36.5); MEAN CORPUSCULAR VOLUME 90.1 fl (80.0-96.0); MONO # 1.5 10^3/uL (0.0-0.8); MONO % 14.8 % (0.0-5.0); NEUTROPHILS # 7.1 10^3/uL (1.8-7.7); NEUTROPHILS % 68.5 % (36.0-66.0); PLATELET COUNT, AUTOMATED 517 10^3/uL (150-450); RED BLOOD COUNT 4.04 10^6/uL (4.00-5.40); WHITE BLOOD COUNT 10.3 10^3/uL (4.0-10.0)
[2018-05-11 14:30] LABS: ALBUMIN 2.5 GM/DL (3.2-5.2); ALT/SGPT 15 U/L (12-78); BILIRUBIN,DIRECT 0.2 MG/DL (0.0-0.2); BILIRUBIN,TOTAL 0.4 MG/DL (0.2-1.0); BLOOD UREA NITROGEN 39 MG/DL (7-18); CALCIUM LEVEL 9.6 MG/DL (8.8-10.2); CARBON DIOXIDE LEVEL 28 MEQ/L (21-32); CHLORIDE LEVEL 102 MEQ/L (98-107); CPK CREATINE PHOSPHOKINASE 23 U/L (26-192); CREATININE FOR GFR 0.56 MG/DL (0.55-1.30); ETHYL ALCOHOL (ETHANOL) < 0.003 % (0.000-0.010); GLOMERULAR FILTRATION RATE > 60.0 (>45); GLUCOSE, FASTING 72 MG/DL (70-100); MB/CK RELATIVE INDEX 6.09 (< OR =4); POTASSIUM SERUM 4.8 MEQ/L (3.5-5.1); SALICYLATE LEVEL < 1.7 MG/DL (5.0-30.0); SODIUM LEVEL 140 MEQ/L (136-145); TOTAL PROTEIN 5.2 GM/DL (6.4-8.2); TROPONIN I < 0.02 NG/ML (< 0.10)
[2018-05-11] MEDS ORDERED: D5W/0.45% SODIUM CHLORIDE 1,000 ML IV ONE (17:00)
[2018-05-11] MEDS ORDERED: MORPHINE 15 MG SA TAB PO ONE (18:45)
[2018-05-11] MEDS ORDERED: buPROPion (WELLBUTRIN SR) 100 MG SR TAB PO ONE ×2 (18:45→19:00)
[2018-05-11] MEDS ORDERED: FOLIC ACID 1 MG TAB PO ONE (18:45)
[2018-05-11 19:35] VITALS: BP 146/52
--- NOTE | 2018-05-12 09:18 | ECGEPIP ---
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
== END 2018-05-11 19:37 | disposition short-term general hospital (02) ==
LOC: EDBD 11:24 → M ED 11:24
DX: R44.0 Auditory hallucinations (principal); R44.1 Visual hallucinations; K21.9 Gastro-esophageal reflux disease without esophagitis; L98.499 Non-pressure chronic ulcer of skin of other sites with unspecified severity; Z98.84 Bariatric surgery status; Z85.6 Personal history of leukemia; Z94.84 Stem cells transplant status; Z95.828 Presence of other vascular implants and grafts; Z86.718 Personal history of other venous thrombosis and embolism; Z92.21 Personal history of antineoplastic chemotherapy; Z86.2 Personal history of diseases of the blood and blood-forming organs and certain disorders involving the immune mechanism; D89.810 Acute graft-versus-host disease; F32.9 Major depressive disorder, single episode, unspecified; Z86.69 Personal history of other diseases of the nervous system and sense organs; Z79.891 Long term (current) use of opiate analgesic; Z79.899 Other long term (current) drug therapy
CPT/HCPCS: 36415; 51701; 70450; 71045; 80048; 80076; 80307; 81001; 82140; 82550; 82553; 83605; 84443; 84484; 85025; 87040; 87077; 87086; 87186; 93005; 93041; 94760; 96365; 96366; 96367; 99285; G0480; J2248; J2543